=== PATIENT | female | born 1985 | race Caucasian/White ===

== ENCOUNTER 2017-05-15 09:49 | Observation (INO) ==
[2017-05-15] MEDS ORDERED: Ondansetron 4 MG/2 ML VIAL IVP ONE (10:01)
--- NOTE | 2017-05-15 10:07 | Emergency Department Note ---
Disposition Clinical Impression: DKA (diabetic ketoacidoses) Qualifiers: Diabetes mellitus type: type 1 Diabetes mellitus complication detail: without coma Qualified Code(s): E10.10 - Type 1 diabetes mellitus with ketoacidosis without coma Disposition: Admitted As Inpatient Condition: Good Referrals: Ren Artis MD [Primary Care Provider] - Forms: ED Satisfaction Letter Time of Disposition: 12:03 General Adult HPI - General Chief complaint: ED Nausea/Vomiting/Diarrhea Stated complaint: Hyperglycimia Time Seen by Provider: 05/15/17 09:56 Source: patient, EMS Mode of arrival: EMS Limitations: no limitations Nursing Notes Reviewed: Yes Vital Signs Reviewed: Yes - History of Present Illness HPI Narrative: 31-year-old female with significant past medical history of type 1 diabetes with insulin pump placed approximately one month ago presenting to the emergency department with concern for DKA. Patient states since she had the insulin pump placed 1 month ago she has been unable to keep her glucose less than 300. This morning she woke up and did not feel well. She was nauseous and could not eat breakfast. She checked her sugar and it was greater than 500. She gave herself 36 units of insulin at home but was concerned because she has had multiple episodes of DKA in the past. Patient denies any pain at this time. Denies chest pain, shortness of breath or dizziness. Denies fever or urinary symptoms. Pain Scale: 3 - Related Data Home Medications Medication Instructions Recorded Confirmed Insulin ASPART [NovoLOG] 1 - 5 unit SQ TIDWM 10/25/14 05/15/17 ARIPiprazole [Abilify] 10 mg PO DAILY 05/15/17 05/15/17 Dicyclomine [Bentyl] 10 mg PO QID 05/15/17 05/15/17 Insulin Degludec [Tresiba 18 units SQ HS 05/15/17 05/15/17 Flextouch U-100] Levothyroxine [Synthroid] 75 mcg PO 0630 05/15/17 05/15/17 Pregabalin [Lyrica] 50 mg PO BID 05/15/17 05/15/17 Previous Rx's Medication Instructions Recorded Indomethacin [Indocin] 25 mg PO TIDWM PRN #20 capsule 05/03/17 Allergies Allergy/AdvReac Type Severity Reaction Status Date / Time Penicillins Allergy Rash Verified 05/15/17 10:05 sulfamethoxazole Allergy Rash Verified 05/15/17 10:05 [From Bactrim] trimethoprim [From Bactrim] Allergy Rash Verified 05/15/17 10:05 All systems ED: reviewed and negative except as stated. Gastrointestinal: Reports: nausea Endocrine: Reports: fatigue Past Medical History - Past Medical History Attestation: Yes The following information was validated with the patient. 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 Absent: scleral icterus, conjunctival injection - ENT ENT exam: mucous membranes dry - Neck Neck exam: Present: normal inspection, full ROM. Absent: tenderness, meningismus - Chest Chest inspection: Present: normal inspection, symmetric chest wall rise. Absent : tenderness, rash - Respiratory Respiratory exam: Present: normal lung sounds bilaterally. Absent: respiratory distress, wheezes, stridor - Cardiovascular Cardiovascular exam: Present: regular rate, normal rhythm, normal heart sounds - Abdominal Exam Abdominal exam: Present: soft, tenderness. Absent: distention, guarding, rebound, rigidity Abdominal tenderness: Present: diffuse, mild - Extremities Exam Extremities exam: Present: normal inspection, full ROM - Neurological Exam Neurological exam: Present: alert, oriented X3 - Psychiatric Psychiatric exam: Present: normal affect, normal mood - Skin Skin exam: Present: warm, intact Course Course Narrative: 31-year-old female presenting to the emergency department with concern for DKA. Upon arrival glucose by fingerstick was greater than 500. Patient complaining of nausea as well. We will perform DKA workup including basic labs , UA and VBG. Patient is alert and oriented 3 in room stable vital signs. Disposition pending the most likely admission. Patient agrees with this plan. - Reevaluation(s) Reevaluation #1: Patient's VBG shows she is acidotic and has positive blood and urine ketones. Patient is alert and oriented 3 in the room with stable vital signs. Insulin drip was started. We will plan to admit the patient for DKA at this time. Patient agrees with this plan. I spoke with the hospitalist on-call Dr. Herring who agrees to accept the patient at this time. Vital Signs Temperature 98.1 F 05/15/17 10:00 Pulse Rate 79 05/15/17 10:00 Respiratory Rate 16 05/15/17 10:00 Blood Pressure 115/77 05/15/17 10:00 O2 Sat by Pulse Oximetry 99 05/15/17 10:00 Temperature 98.1 F 05/15/17 10:00 Pulse Rate 79 05/15/17 10:00 Respiratory Rate 16 05/15/17 10:00 Blood Pressure 115/77 05/15/17 10:00 O2 Sat by Pulse Oximetry 99 05/15/17 10:00 Oxygen Delivery Oxygen Delivery Room Air Medical Decision Making - Medical Records Medical records reviewed: Yes I reviewed the patient's medical records. - Lab Data Lab results reviewed: Yes I reviewed the patient's lab results. Result diagrams: 05/15/17 10:15 05/15/17 10:15 Lab Results 05/15/17 05/15/17 05/15/17 Range/Units 10:15 10:15 10:15 WBC 5.7 (4.3-11.1) K/mcL RBC 4.69 (3.82-4.97) M/mcL Hgb 14.1 (11.5-15.4) g/dL Hct 41.3 (35.3-44.9) % MCV 88.1 (83.0-100.0) fL MCH 30.1 (28.0-33.3) pg MCHC 34.1 (31.6-35.5) g/dL RDW 12.9 (11.5-14.5) % Plt Count 260 (140-400) K/mcL MPV 9.4 (9.4-12.4) fL Immature Gran % 0.5 (0-4) % Seg Neutrophils % 71.9 % Lymphocytes % 19.3 % Monocytes % 6.3 % Eosinophils % 0.9 % Basophils % 1.1 % Neutrophils # 4.1 (1.6-8.9) K/mcL Lymphocytes # 1.1 (0.6-4.6) K/mcL Monocytes # 0.4 (0.0-1.3) K/mcL Eosinophils # 0.1 (0.0-0.6) K/mcL Basophils # 0.1 (0.0-0.2) K/mcL VBG pH (7.32-7.42) pH Units VBG pCO2 (41-51) mmHg VBG pO2 (25-50) mmHg VBG HCO3 (21-27) mEq/L Sodium 130 L (136-145) mEq/L Potassium 4.5 (3.5-5.1) mEq/L Chloride 102 (98-107) mEq/L Carbon Dioxide 16 L (23-29) mEq/L BUN 17 (6-20) mg/dL Creatinine 0.74 (0.60-1.20) mg/dL Est GFR ( Amer) > 60 (> 60) Est GFR (Non-Af Amer) > 60 (> 60) BUN/Creatinine Ratio 23 (6-26) Glucose 498 H (70-105) mg/dL Calculated Osmolality 294 (280-300) Calcium 9.0 (8.6-10.3) mg/dL Beta-Hydroxybutyric Acd > 2.00 H (0.02-0.27) mmol/L Urine Color (Yellow) Urine Clarity (Clear) Urine pH (5.0-8.0) pH Units Ur Specific [place] (1.010-1.025) Urine Protein (Neg-Trace) mg/dL Urine Glucose (UA) (Normal) mg/dL Urine Ketones (Negative) mg/dL Urine Blood (Negative) Urine Nitrite (Negative) Urine Bilirubin (Negative) Urine Urobilinogen (Normal) mg/dL Ur Leukocyte Esterase (Negative) Urine Microscopic RBC (0-3) per hpf Urine Microscopic WBC (0-3) per hpf Ur Squamous Epith Cells (None-Few) per lpf Urine Bacteria (None-Few) per hpf Hyaline Casts (None-Few) per lpf Ur Culture Indicated? (NO) Urine Test (Negative) 05/15/17 05/15/17 05/15/17 Range/Units 10:25 10:25 10:32 WBC (4.3-11.1) K/mcL RBC (3.82-4.97) M/mcL Hgb (11.5-15.4) g/dL Hct (35.3-44.9) % MCV (83.0-100.0) fL MCH (28.0-33.3) pg MCHC (31.6-35.5) g/dL RDW (11.5-14.5) % Plt Count (140-400) K/mcL MPV (9.4-12.4) fL Immature Gran % (0-4) % Seg Neutrophils % % Lymphocytes % % Monocytes % % Eosinophils % % Basophils % % Neutrophils # (1.6-8.9) K/mcL Lymphocytes # (0.6-4.6) K/mcL Monocytes # (0.0-1.3) K/mcL Eosinophils # (0.0-0.6) K/mcL Basophils # (0.0-0.2) K/mcL VBG pH 7.26 L (7.32-7.42) pH Units VBG pCO2 36 L (41-51) mmHg VBG pO2 56 H (25-50) mmHg VBG HCO3 16 L (21-27) mEq/L Sodium (136-145) mEq/L Potassium (3.5-5.1) mEq/L Chloride (98-107) mEq/L Carbon Dioxide (23-29) mEq/L BUN (6-20) mg/dL Creatinine (0.60-1.20) mg/dL Est GFR ( Amer) (> 60) Est GFR (Non-Af Amer) (> 60) BUN/Creatinine Ratio (6-26) Glucose (70-105) mg/dL Calculated Osmolality (280-300) Calcium (8.6-10.3) mg/dL Beta-Hydroxybutyric Acd (0.02-0.27) mmol/L Urine Color Yellow (Yellow) Urine Clarity Clear (Clear) Urine pH 5.5 (5.0-8.0) pH Units Ur Specific [place] > 1.030 H (1.010-1.025) Urine Protein Negative (Neg-Trace) mg/dL Urine Glucose (UA) >=1000 H (Normal) mg/dL Urine Ketones 80 H (Negative) mg/dL Urine Blood Large H (Negative) Urine Nitrite Negative (Negative) Urine Bilirubin Negative (Negative) Urine Urobilinogen Normal (Normal) mg/dL Ur Leukocyte Esterase Negative (Negative) Urine Microscopic RBC 0-3 (0-3) per hpf Urine Microscopic WBC 0-3 (0-3) per hpf Ur Squamous Epith Cells Many H (None-Few) per lpf Urine Bacteria None Seen (None-Few) per hpf Hyaline Casts None Seen (None-Few) per lpf Ur Culture Indicated? NO (NO) Urine Test Negative (Negative) - EKG Data EKG #1 EKG attestation: Yes I reviewed and interpreted this EKG. EKG results narrative: Sinus rhythm with sinus arrhythmia. 79 bpm. TN interval 134, QRS 86, QTc 412. T-wave inversion noted in V1, V2. No signs of acute ST segment elevation or ischemia. Attestation Statement - Attestation Attestation: I examined this patient and my medical decision-making was reviewed with the Resident Physician, Dr. Mirza. I agree with the documented findings, disposition and treatment plan as described except to the extent set forth below. Patient is a 31-year-old white female with history of type 1 diabetes mellitus he is currently being followed by endocrinology and started on an insulin pump approximately one month ago. Patient's been having trouble managing her sugars and states that they have been running in the high 300s and she was just seen 10 days ago with alterations made to the pump. Patient has changed her slight multiple times and this morning woke up and was nauseated not feeling well and blood sugar read over 500. Patient denies any preceding illness no fevers chills no cough sore throat no other associated symptoms. I agree with patient's physical exam findings as documented. Patient's hemodynamically stable and GCS of 15 on arrival with no altered mental status. Patient was started on 2 L fluid bolus IV kept on continuous cardiac monitoring and pulse ox and labs were drawn and sent. VBG showed a normal pH, metabolic panel shows a gap acidosis with hyperglycemia consistent with DKA we will start her on insulin drip. Case was discussed with the hospitalist who accepted the patient for admission for DKA.
[2017-05-15 10:30] LABS: Basophils # 0.1 K/mcL (0.0-0.2); Basophils % 1.1 %; Eosinophils # 0.1 K/mcL (0.0-0.6); Eosinophils % 0.9 %; Hematocrit 41.3 % (35.3-44.9); Hemoglobin 14.1 g/dL (11.5-15.4); Immature Granulocytes % 0.5 % (0-4); Lymphocytes # 1.1 K/mcL (0.6-4.6); Lymphocytes % 19.3 %; Mean Corpuscular HGB Conc 34.1 g/dL (31.6-35.5); Mean Corpuscular Hemoglobin 30.1 pg (28.0-33.3); Mean Corpuscular Volume 88.1 fL (83.0-100.0); Mean Platelet Volume 9.4 fL (9.4-12.4); Monocytes # 0.4 K/mcL (0.0-1.3); Monocytes % 6.3 %; Neutrophils # 4.1 K/mcL (1.6-8.9); Platelet Count 260 K/mcL (140-400); Red Blood Count 4.69 M/mcL (3.82-4.97); Red Cell Distribution Width 12.9 % (11.5-14.5); Segmented Neutrophils % 71.9 %
[2017-05-15 10:34] LABS: VBG HCO3 16 mEq/L (21-27); VBG PCO2 36 mmHg (41-51); VBG PH 7.26 pH Units (7.32-7.42); VBG PO2 56 mmHg (25-50)
[2017-05-15] MEDS ORDERED: Ketorolac 15 MG/ML VIAL IVP ONE (10:36)
[2017-05-15] MEDS: 0.9 % Sodium Chloride 1,000 ML IVC SCH ×6 (10:37→18:05)
[2017-05-15 10:55] LABS: BUN/Creatinine Ratio 23 (6-26); Blood Urea Nitrogen 17 mg/dL (6-20); Carbon Dioxide 16 mEq/L (23-29); Chloride 102 mEq/L (98-107); Glucose 498 mg/dL (70-105); Osmolality,Calculated 294 (280-300); Potassium 4.5 mEq/L (3.5-5.1); Sodium 130 mEq/L (136-145); eGFR For African Americans > 60 (> 60); eGFR For Non-African Americans > 60 (> 60)
[2017-05-15] MEDS ORDERED: *HR* Dextrose 50 % in Water (Syg) 50 ML SYRINGE IVP PRN ×2 (11:06→17:48)
[2017-05-15] MEDS ORDERED: Insulin Human Regular 100 UNIT in 0.9 % Sodium Chloride 100 ML IVC SCH ×2 (11:15→18:00)
[2017-05-15 11:17] LABS: Bilirubin,Urine Negative (Negative); Blood,Urine Large (Negative); Clarity,Urine Clear (Clear); Color,Urine Yellow (Yellow); Glucose,Urine (UA) >=1000 mg/dL (Normal); Ketones,Urine 80 mg/dL (Negative); Leukocyte Esterase,Urine Negative (Negative); Nitrite,Urine Negative (Negative); PH,Urine 5.5 pH Units (5.0-8.0); Protein,Urine Negative (Neg-Trace); Specific Gravity,Urine > 1.030 (1.010-1.025); Urobilinogen,Urine Normal (Normal)
[2017-05-15 11:20] LABS: Bacteria,Urine None Seen per hpf (None-Few); Hyaline Casts,Urine None Seen per lpf (None-Few); RBC,Urine 0-3 per hpf (0-3); Squamous Epithelial Cell,Urine Many per lpf (None-Few); WBC,Urine 0-3 per hpf (0-3)
[2017-05-15] MEDS ORDERED: Indomethacin 25 MG CAPSULE PO PRN (12:54)
[2017-05-15] MEDS ORDERED: *HR* HYDROcodone/Acet 5/325 mg TABLET PO PRN (12:55)
[2017-05-15] MEDS ORDERED: Acetaminophen 325 MG TABLET PO PRN (12:55)
[2017-05-15] MEDS ORDERED: Naloxone 0.4 MG/ML INJ IVP PRN (12:55)
[2017-05-15] MEDS ORDERED: *HR* Promethazine 25 MG/ML VIAL IVP PRN (13:01)
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
[2017-05-15 14:51] LABS: Amphetamine Screen,Urine Negative ng/mL (Cutoff=1000); Barbiturate Screen,Urine Negative ng/mL (Cutoff=200); Benzodiazepines Screen,Urine Negative ng/mL (Cutoff=200); Cannabinoid Screen,Urine Negative ng/mL (Cutoff = 50); Cocaine Screen,Urine Negative ng/mL (Cutoff= 300); Opiate Screen,Urine Negative ng/mL (Cutoff=300); Phencyclidine Screen,Urine Negative ng/mL (Cutoff=25)
[2017-05-15] MEDS ORDERED: D5% in 0.9% NACL 1,000 ML IVC ONE (16:29)
[2017-05-15] MEDS ORDERED: D5% in 0.45% NACL 1,000 ML IVC SCH (16:30)
[2017-05-15 17:18] LABS: Alanine Aminotransferase 22 Units/L (7-52); Albumin 3.3 g/dL (3.5-5.7); Albumin/Globulin Ratio 1.4 (1.1-2.2); Alkaline Phosphatase 73 Units/L (34-104); Aspartate Amino Transferase 22 Units/L (13-39); BUN/Creatinine Ratio 25 (6-26); Bilirubin,Total 0.6 mg/dL (0.3-1.0); Blood Urea Nitrogen 13 mg/dL (6-20); Calcium 7.8 mg/dL (8.6-10.3); Carbon Dioxide 19 mEq/L (23-29); Chloride 113 mEq/L (98-107); Globulin 2.3 g/dL (2.4-3.5); Glucose 149 mg/dL (70-105); Osmolality,Calculated 289 (280-300); Potassium 3.3 mEq/L (3.5-5.1); Sodium 138 mEq/L (136-145); Total Protein 5.6 g/dL (6.4-8.9); eGFR For African Americans > 60 (> 60); eGFR For Non-African Americans > 60 (> 60)
[2017-05-15] MEDS ORDERED: D5% in 0.45% NACL w KCl 20 MEQ/1,000 ML MLS IVC ONE (17:31)
[2017-05-15] MEDS ORDERED: D5% in 0.45% NACL w KCl 20 MEQ/1,000 ML MLS IVC PRN ×2 (17:48→23:31)
[2017-05-15] MEDS ORDERED: Insulin Regular, Human 100 UNIT/ML IV PRN (17:48)
[2017-05-15] MEDS: Pregabalin 50 MG CAPSULE PO SCH (20:35)
[2017-05-15 21:24] LABS: VBG HCO3 20 mEq/L (21-27); VBG PCO2 36 mmHg (41-51); VBG PH 7.34 pH Units (7.32-7.42); VBG PO2 148 mmHg (25-50)
[2017-05-15 22:08] LABS: BUN/Creatinine Ratio 23 (6-26); Blood Urea Nitrogen 11 mg/dL (6-20); Calcium 7.7 mg/dL (8.6-10.3); Carbon Dioxide 19 mEq/L (23-29); Chloride 114 mEq/L (98-107); Glucose 203 mg/dL (70-105); Osmolality,Calculated 291 (280-300); Potassium 3.2 mEq/L (3.5-5.1); Sodium 138 mEq/L (136-145); eGFR For African Americans > 60 (> 60); eGFR For Non-African Americans > 60 (> 60)
[2017-05-15] MEDS ORDERED: Potassium Chloride 20 MEQ, Lidocaine 1% 2 ML in D5% in Water 250 ML IVPB ONE (22:34)
[2017-05-15] MEDS ORDERED: D5% in Water 1,000 ML IVC PRN (22:51)
[2017-05-15] MEDS ORDERED: Insulin DETEMIR 100 UNIT/ML X5UNITS SQ SCH (23:00)
[2017-05-16] MEDS: Insulin LISPRO 300 UNITS/3 ML VIAL SQ SCH ×7 (00:06→21:12)
[2017-05-16] MEDS ORDERED: 0.9 % Sodium Chloride 500 ML IVC ONE (01:41)
[2017-05-16] MEDS ORDERED: Ondansetron ODT 4 MG TAB.RAPDIS SL PRN (03:20)
[2017-05-16 04:43] LABS: Basophils % 0.7 %; Eosinophils # 0.2 K/mcL (0.0-0.6); Eosinophils % 3.3 %; Hematocrit 36.4 % (35.3-44.9); Immature Granulocytes % 0.4 % (0-4); Lymphocytes # 2.2 K/mcL (0.6-4.6); Lymphocytes % 39.5 %; Mean Corpuscular HGB Conc 34.1 g/dL (31.6-35.5); Mean Corpuscular Hemoglobin 29.9 pg (28.0-33.3); Mean Corpuscular Volume 87.7 fL (83.0-100.0); Mean Platelet Volume 9.4 fL (9.4-12.4); Monocytes # 0.4 K/mcL (0.0-1.3); Monocytes % 7.4 %; Neutrophils # 2.7 K/mcL (1.6-8.9); Nucleated Red Blood Cells 0.4 /100 WBC (0); Platelet Count 255 K/mcL (140-400); Red Blood Count 4.15 M/mcL (3.82-4.97); Red Cell Distribution Width 13.1 % (11.5-14.5); Segmented Neutrophils % 48.7 %
[2017-05-16 05:01] LABS: Alanine Aminotransferase 21 Units/L (7-52); Albumin 2.7 g/dL (3.5-5.7); Albumin/Globulin Ratio 1.5 (1.1-2.2); Alkaline Phosphatase 61 Units/L (34-104); Aspartate Amino Transferase 27 Units/L (13-39); BUN/Creatinine Ratio 20 (6-26); Bilirubin,Total 0.3 mg/dL (0.3-1.0); Blood Urea Nitrogen 9 mg/dL (6-20); Calcium 7.6 mg/dL (8.6-10.3); Carbon Dioxide 18 mEq/L (23-29); Chloride 115 mEq/L (98-107); Chol/HDL Ratio 3.3 (0-4.9); Cholesterol 126 mg/dL (< 200); Globulin 1.8 g/dL (2.4-3.5); Glucose 208 mg/dL (70-105); HDL Cholesterol 38 mg/dL (40-59); LDL Cholesterol,Calculated 70 mg/dL (0-99); Osmolality,Calculated 291 (280-300); Potassium 3.9 mEq/L (3.5-5.1); Sodium 138 mEq/L (136-145); Total Protein 4.5 g/dL (6.4-8.9); Triglycerides 92 mg/dL (< 150); eGFR For African Americans > 60 (> 60); eGFR For Non-African Americans > 60 (> 60)
[2017-05-16 05:05] LABS: Hemoglobin 12.4 g/dL (11.5-15.4)
[2017-05-16 05:14] LABS: Thyroid Stimulating Hormone 5.726 mcIU/mL (0.340-5.600)
[2017-05-16] MEDS: *HR* Enoxaparin 40 MG/0.4 ML SYRINGE SQ SCH (06:13)
[2017-05-16] MEDS: ARIPiprazole 10 MG TABLET PO SCH (08:47)
[2017-05-16] MEDS: Pregabalin 50 MG CAPSULE PO SCH ×2 (08:48→21:11)
--- NOTE | 2017-05-16 08:49 | Internal Med Progress Note ---
Date of Encounter: 05/16/17 Time of Encounter: 08:46 - Assessment and plan (1) DKA (diabetic ketoacidoses) Current Visit: Yes Status: Acute Assessment and plan: DKA likely secondary to pump malfunction Resolving Beta OH butiric acid was >2 with metabolic acidosis Start Levemir 10 units twice a day , (the patient used to take Tresiba 18 units daily) and humalog 6 units tid with sliding scale Ok to go to the regular floor Qualifiers: Diabetes mellitus type: type 1 Diabetes mellitus complication detail: without coma Qualified Code(s): E10.10 - Type 1 diabetes mellitus with ketoacidosis without coma (2) Hypokalemia Current Visit: Yes Status: Acute Assessment and plan: Repleted (3) Hyponatremia Current Visit: Yes Status: Acute Assessment and plan: Possible pseudohyponatremia due to hyperglycemia (4) Metabolic acidosis Current Visit: Yes Status: Acute Assessment and plan: Resolving (5) Depression Current Visit: Yes Status: Chronic Assessment and plan: Stable Qualifiers: Depression Type: other depression Qualified Code(s): F32.89 - Other specified depressive episodes (6) Hypothyroidism Current Visit: Yes Status: Acute Assessment and plan: Continue Synthroid Qualifiers: Hypothyroidism type: unspecified Qualified Code(s): E03.9 - Hypothyroidism , unspecified - Subjective Interval history: Complaining about nausea, denies abdominal pain, no dysuria, no fevers. Mentions that her pump probably was not functioning properly - Constitutional Vitals: Temp Pulse Resp BP Pulse Ox 98.2 F 72 15 97/61 97 05/16/17 07:16 05/16/17 07:16 05/16/17 07:16 05/16/17 07:16 05/16/17 07:16 General appearance: Present: cooperative, A&O X 3, pleasant, no acute distress, answers questions appropriately - Head Head exam: Present: atraumatic, normocephalic - Eye Eye exam: Present: PERRL, conjuntiva pink, sclera anicteric Pupils: Present: PERRL - Neck Neck exam general surgery: Present: supple, trachea midline. Absent: lymphadenopathy - Respiratory Respiratory exam: Present: CTAB. Absent: accessory muscle use, rales, rhonchi, wheezes - Cardiovascular Cardiovascular exam: Present: RRR, +S1, +S2. Absent: diastolic murmur, gallop, rubs, systolic murmur - GI/Abdominal GI/Abdominal exam: Present: normal bowel sounds, soft, no peritoneal signs. Absent: distended, tenderness - Extremities Exam Extremities exam: Present: warm, radial pulses palpable and symmetrical. Absent : calf tenderness, cyanotic, pedal edema - Neurological Exam Neurological exam: Present: CN II-XII intact, oriented X3, no focal deficits. Absent: pronater drift, facial droop, speech deficit - Skin Skin exam: Present: dry, intact Internal Medicine: Result - Labs CBC & Chem 7: 05/16/17 04:05 05/16/17 04:05 Labs: Short CBC 05/16/17 Range/Units 04:05 WBC 5.5 (4.3-11.1) K/mcL Hgb 12.4 D (11.5-15.4) g/dL Hct 36.4 (35.3-44.9) % Plt Count 255 (140-400) K/mcL Neutrophils # 2.7 (1.6-8.9) K/mcL BMP 05/15/17 05/15/17 05/16/17 16:22 21:11 04:05 Sodium 138 138 138 Potassium 3.3 L D 3.2 L 3.9 Chloride 113 H 114 H 115 H Carbon Dioxide 19 L 19 L 18 L BUN 13 11 9 Creatinine 0.53 L 0.47 L 0.45 L Glucose 149 H 203 H 208 H Calcium 7.8 L 7.7 L 7.6 L Liver Function 05/15/17 05/16/17 Range/Units 16:22 04:05 Total Bilirubin 0.6 0.3 (0.3-1.0) mg/dL AST 22 27 (13-39) Units/L ALT 22 21 (7-52) Units/L Alkaline Phosphatase 73 61 (34-104) Units/L Albumin 3.3 L 2.7 L (3.5-5.7) g/dL Consult Discharge Plan - Plan Referrals: Ren Artis MD [Primary Care Provider] - 05/22/17 9:45 am Michelle Zimmer CNP [Advanced Practice Nurse] - 05/22/17 12:00 pm
[2017-05-16] MEDS: Insulin DETEMIR 100 UNIT/ML X5UNITS SQ SCH ×2 (10:20→21:11)
[2017-05-16 12:13] LABS: Estimated Average Glucose 223 mg/dl; Hemoglobin A1C 9.4 %
[2017-05-17 06:48] LABS: Basophils # 0.1 K/mcL (0.0-0.2); Basophils % 1.1 %; Eosinophils # 0.1 K/mcL (0.0-0.6); Eosinophils % 2.4 %; Hematocrit 39.3 % (35.3-44.9); Hemoglobin 13.4 g/dL (11.5-15.4); Immature Granulocytes % 0.4 % (0-4); Lymphocytes # 1.8 K/mcL (0.6-4.6); Lymphocytes % 38.7 %; Mean Corpuscular HGB Conc 34.1 g/dL (31.6-35.5); Mean Corpuscular Hemoglobin 29.8 pg (28.0-33.3); Mean Corpuscular Volume 87.5 fL (83.0-100.0); Mean Platelet Volume 9.6 fL (9.4-12.4); Monocytes # 0.5 K/mcL (0.0-1.3); Monocytes % 9.7 %; Neutrophils # 2.2 K/mcL (1.6-8.9); Platelet Count 230 K/mcL (140-400); Red Blood Count 4.49 M/mcL (3.82-4.97); Red Cell Distribution Width 13.1 % (11.5-14.5); Segmented Neutrophils % 47.7 %
[2017-05-17 06:53] LABS: Alanine Aminotransferase 29 Units/L (7-52); Albumin/Globulin Ratio 1.5 (1.1-2.2); Alkaline Phosphatase 61 Units/L (34-104); Aspartate Amino Transferase 37 Units/L (13-39); BUN/Creatinine Ratio 19 (6-26); Bilirubin,Total 0.3 mg/dL (0.3-1.0); Blood Urea Nitrogen 10 mg/dL (6-20); Calcium 8.2 mg/dL (8.6-10.3); Carbon Dioxide 24 mEq/L (23-29); Chloride 109 mEq/L (98-107); Glucose 207 mg/dL (70-105); Osmolality,Calculated 289 (280-300); Sodium 137 mEq/L (136-145); eGFR For African Americans > 60 (> 60); eGFR For Non-African Americans > 60 (> 60)
[2017-05-17 07:17] VITALS: BP 107/75
[2017-05-17] MEDS: *HR* Enoxaparin 40 MG/0.4 ML SYRINGE SQ SCH (07:56)
[2017-05-17] MEDS ORDERED: SUMAtriptan succinate 25 MG TABLET PO PRN (08:25)
[2017-05-17] MEDS ORDERED: Acetaminophen/Butalbital/CaffeineTABLET PO PRN (08:25)
--- NOTE | 2017-05-17 08:28 | Discharge Summary ---
- NOTES TO OUTPATIENT PROVIDER Notes to Outpatient Provider: Insulin pump needs reconfiguration. Date of Encounter: 05/17/17 Time of Encounter: 08:15 - Discharge Diagnosis (1) DKA (diabetic ketoacidoses) Priority: Primary Status: Resolved Qualifiers: Diabetes mellitus type: type 1 Diabetes mellitus complication detail: without coma Qualified Code(s): E10.10 - Type 1 diabetes mellitus with ketoacidosis without coma (2) Hypokalemia Priority: Secondary Status: Resolved (3) Hyponatremia Priority: Secondary Status: Resolved (4) Hypothyroidism Priority: Secondary Status: Chronic Qualifiers: Hypothyroidism type: unspecified Qualified Code(s): E03.9 - Hypothyroidism , unspecified (5) Metabolic acidosis Priority: Secondary Status: Resolved (6) Migraine Priority: Secondary Status: Acute Qualifiers: Migraine type: without aura Status migrainosus presence: without status migrainosus Intractability: intractable Qualified Code(s): G43.019 - Migraine without aura, intractable, without status migrainosus Hospital course: Ms. Goyal is a 31 year old female patient with history of type 1 diabetes mellitus who had an insulin pump placed one month ago has had difficulty controlling her blood sugars with it. She has been compliant with her pump usage. She was found to be in diabetic ketoacidosis and was therefore hospitalized. She was started on treatment with intravenous insulin and IV fluids per DKA protocol. Her blood sugars have improved and is on subcutaneous insulin. She is tolerating diet well. She is clinically stable to be discharged home today and will be discharged on NovoLog and Tresiba. She can follow up with her primary care doctor to have her pump reevaluated and adjusted. She also has a history of migraine and all of migraine headaches here. She is being discharged on Imitrex to be used as needed. Discharge discussed with: patient - Time Spent with Patient Total time spent providing and/or coordinating discharge services: Less than 30 minutes (25 min) - Discharge Medications Prescriptions: SUMAtriptan succinate [Imitrex] 25 mg PO Q2H PRN #20 tablet PRN Reason: Migraine Headache Syrge-Ndl,Ins 0.3 ml Half Raj [Insulin Syringe] 1 each [facility] disp.syrin Home Medications: Insulin ASPART [NovoLOG] 1 - 5 unit SQ TIDWM 10/25/14 [History] Indomethacin [Indocin] 25 mg PO TIDWM PRN #20 capsule 05/03/17 [Rx] ARIPiprazole [Abilify] 10 mg PO DAILY 05/15/17 [History] Dicyclomine [Bentyl] 10 mg PO QID 05/15/17 [History] Insulin Degludec [Tresiba Flextouch U-100] 18 units SQ HS 05/15/17 [History] Levothyroxine [Synthroid] 75 mcg PO 0630 05/15/17 [History] Pregabalin [Lyrica] 50 mg PO BID 05/15/17 [History] SUMAtriptan succinate [Imitrex] 25 mg PO Q2H PRN #20 tablet 05/17/17 [Rx] Syrge-Ndl,Ins 0.3 ml Half Raj [Insulin Syringe] 1 each [facility] #120 disp.syrin 05/17/17 [Rx] Allergies/Adverse Reactions: 3 Allergy/AdvReac Type Severity Reaction Status Date / Time Penicillins Allergy Rash Verified 05/15/17 10:05 sulfamethoxazole Allergy Rash Verified 05/15/17 10:05 [From Bactrim] trimethoprim [From Bactrim] Allergy Rash Verified 05/15/17 10:05 Date of admission: 05/15/17 13:16 Primary care physician: Ren Artis MD Consults: 05/15/17 13:42 Consult to Diabetes Education [CONS] Routine Comment: Reason for Consult: Uncontrolled diabetes on insulin pump 05/15/17 13:46 Consult to Invasive Line Access Team [CONS] Routine Reason for Consult: difficult access Line Type: EPIV Discharging clinician: Radha Magaña Anticipated date of discharge: 05/17/17 - Constitutional Vitals: Temp Pulse Resp BP Pulse Ox 98 F 71 16 107/75 97 05/17/17 07:06 05/17/17 07:06 05/17/17 07:06 05/17/17 07:06 05/17/17 07:06 General appearance: Present: cooperative, A&O X 3, pleasant, no acute distress, answers questions appropriately - Respiratory Respiratory exam: Present: CTAB. Absent: accessory muscle use, rales, rhonchi, wheezes - Cardiovascular Cardiovascular exam: Present: RRR, +S1, +S2. Absent: diastolic murmur, gallop, rubs, systolic murmur - GI/Abdominal GI/Abdominal exam: Present: normal bowel sounds, soft, no peritoneal signs. Absent: distended, tenderness - Extremities Exam Extremities exam: Present: warm, radial pulses palpable and symmetrical. Absent : calf tenderness, cyanotic, pedal edema - Patient Status Disposition: Home, Self-Care Condition: Good Functional capacity at discharge: independent ambulation Overall status at discharge: patient is progressing back to baseline - Discharge Instructions Instructions: Diabetes Mellitus Type 2 in Adults (DC) Follow Up With: Ren Artis MD [Primary Care Provider] - 05/22/17 9:45 am Michelle Zimmer CNP [Advanced Practice Nurse] - 05/22/17 12:00 pm - Diet and Activity Activity: increase activity as tolerated Diet: diabetic diet, low fat, low cholesterol, low salt diet
[2017-05-17] MEDS: Insulin DETEMIR 100 UNIT/ML X5UNITS SQ SCH (08:31)
[2017-05-17] MEDS: Insulin LISPRO 300 UNITS/3 ML VIAL SQ SCH ×2 (08:31)
[2017-05-17] MEDS: ARIPiprazole 10 MG TABLET PO SCH (08:32)
[2017-05-17] MEDS: Pregabalin 50 MG CAPSULE PO SCH (08:32)
--- NOTE | 2017-05-20 20:54 | Electrocardiograph Report ---
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
== END 2017-05-17 11:35 | disposition home or self-care (01) ==
LOC: EMEROO 09:49 → 2NNU 09:49 → SUATTDRO 13:16 → 2NNU 15:24 → 3ANU 05-16 11:12
PROVIDERS: ADMIT Student in an Organized Health Care Education/Training Program; ATTEND Internal Medicine

== ENCOUNTER 2017-12-10 19:02 | Inpatient (IN) ==
--- NOTE | 2017-12-10 19:31 | Emergency Department Note ---
Disposition Clinical Impression: DKA (diabetic ketoacidoses) Qualifiers: Diabetes mellitus type: type 1 Diabetes mellitus complication detail: without coma Qualified Code(s): E10.10 - Type 1 diabetes mellitus with ketoacidosis without coma Nausea and vomiting Qualifiers: Vomiting type: unspecified Vomiting Intractability: non-intractable Qualified Code(s): R11.2 - Nausea with vomiting, unspecified Disposition: Admitted As Inpatient Condition: Good Referrals: Ren Artis MD [Primary Care Provider] - Forms: ED Satisfaction Letter Nausea/Vomiting/Diarrhea HPI - General Chief complaint: ED Nausea/Vomiting/Diarrhea Stated complaint: DKA Time Seen by Provider: 12/10/17 19:13 Source: patient Mode of arrival: private vehicle Limitations: no limitations Nursing Notes Reviewed: Yes Vital Signs Reviewed: Yes - History of Present Illness HPI Narrative: 32-year-old female history of insulin-dependent type 1 diabetes who uses a pump at home who presents to the ER due to abnormal labs. Patient states she had labs drawn today. She is having surgery on Friday with orthopedics. She broke her arm recently. States that she was called because they said she was in DKA. She does admit to feeling unwell for the last several days with nausea and vomiting but that it might be secondary to Percocet. She was also diagnosed with bronchitis a little over a week ago and was on a course of steroids that she finished one week ago. She also states today that she took off her insulin pump because she was tired of doing it and wants to go back to doing shots. No other complaints. Pt Subjective Complaint: nausea, vomiting Onset (ago): day(s) Improves with: nothing Worsens with: nonthing Context: other (History of DKA) Associated symptoms: Reports: nausea/vomiting - Related Data Home Medications Medication Instructions Recorded Confirmed ARIPiprazole [Abilify] 10 mg PO DAILY 05/15/17 12/10/17 Levothyroxine [Synthroid] 75 mcg PO DAILY 06/21/17 12/10/17 Ergocalciferol (VITAMIN D2) 50,000 unit PO QWEEK 06/22/17 12/10/17 [Drisdol (50,000 Unit)] Folic Acid/Vit Bcomp,C [Renal-Sab[place] 1 tab PO DAILY 12/10/17 12/10/17 Tablet] Pregabalin [Lyrica] 50 mg PO BID 12/10/17 12/10/17 SUMAtriptan Succinate [Imitrex] 100 mg PO DAILY PRN 12/10/17 12/10/17 Subcutaneous Insulin Pump [T:Slim] 1 each [facility] AD 12/10/17 12/10/17 Previous Rx's Medication Instructions Recorded HYDROcodone/Acet 5/325 mg [[place] 1 tab PO Q6H PRN 3 Days #12 tab 12/06/17 5-325 mg] Oxycodone HCl/Acetaminophen 1 each PO Q4HR PRN 2 Days #8 tablet 12/07/17 [Percocet 5-325 mg Tablet] Allergies Allergy/AdvReac Type Severity Reaction Status Date / Time naproxen [From Naprosyn] Allergy Difficulty Verified 12/06/17 17:04 Breathing Penicillins Allergy Rash Verified 07/09/17 21:19 sulfamethoxazole Allergy Itching Verified 08/25/17 10:28 [From Bactrim] tramadol [From Ultram] Allergy Hives Verified 12/06/17 17:04 trimethoprim [From Bactrim] Allergy Itching Verified 08/25/17 10:28 All systems ED: reviewed and negative except as stated. Constitutional: Denies: fever Respiratory: Denies: cough Gastrointestinal: Reports: nausea, vomiting. Denies: diarrhea Genitourinary: Denies: dysuria, hematuria Past Medical History - Past Medical History Attestation: Yes The following information was validated with the patient. Source: patient Medical history: Reports: diabetes, thyroid disease, other Surgical history: Reports: no surgical history Psychiatric history: Reports: bipolar, depression CYTOPATHOLOGIST history: Reports: no CYTOPATHOLOGIST history - Social History Smoking Status: Current every day smoker Smokeless Tobacco Status: No Alcohol use: Reports: none Drug use: Reports: none Physical Exam - General Limitations: no limitations General appearance: alert, in no apparent distress - Head Head exam: atraumatic, normocephalic - Eye Eye exam: Present: normal appearance - ENT ENT exam: normal exam, mucous membranes dry - Neck Neck exam: Present: normal inspection - Chest Chest inspection: Present: normal inspection, symmetric chest wall rise - Respiratory Respiratory exam: Present: normal lung sounds bilaterally - Cardiovascular Cardiovascular exam: Present: normal rhythm, tachycardia, normal heart sounds - Abdominal Exam Abdominal exam: Present: soft, Non-Tender. Absent: tenderness, distention, guarding, rigidity - Extremities Exam Extremities exam: Present: normal inspection, full ROM - Expanded Upper Extremity Exam Shoulder exam: Present: normal inspection, full ROM Arm exam: Present: normal inspection, full ROM Elbow exam: Present: normal inspection, full ROM Forearm/Wrist exam: Present: normal inspection, full ROM Hand exam: Present: normal inspection, full ROM - Expanded Lower Extremity Exam Hip/Pelvis exam: Present: normal inspection, full ROM Upper leg exam: Present: normal inspection, full ROM Knee exam: Present: normal inspection, full ROM Lower leg exam: Present: normal inspection, full ROM Ankle exam: Present: normal inspection, full ROM Foot/toe exam: Present: normal inspection, full ROM - Neurological Exam Neurological exam: Present: alert, other (GCS 15. No focal deficits.) - Skin Skin exam: Present: warm, dry Course Course Narrative: Patient seen and examined. Vital signs reviewed. She is ill but nontoxic in appearance. Reviewed labs from earlier today. Plan to repeat. We will give her 2 L bolus and likely start an insulin drip for DKA. - Reevaluation(s) Reevaluation #1: Labs consistent with DKA. Patient given 2 L of normal saline. Additional maintenance fluid ordered with potassium supplementation. Insulin drip initiated. Admitted to the hospitalist service. Vital Signs Temperature 98.0 F 12/10/17 19:10 Pulse Rate 138 12/10/17 19:10 Respiratory Rate 22 12/10/17 19:10 Blood Pressure 124/82 12/10/17 19:10 O2 Sat by Pulse Oximetry 98 12/10/17 19:10 Temperature 98.0 F 12/10/17 19:45 Pulse Rate 97 12/10/17 20:32 Respiratory Rate 20 12/10/17 20:32 Blood Pressure 120/87 12/10/17 20:32 O2 Sat by Pulse Oximetry 100 12/10/17 20:32 Oxygen Delivery Oxygen Delivery Room Air Nausea/Vomiting/Diarrhea - MDM Narrative Medical decision making narrative: 32-year-old female with type 1 diabetes presenting with what appears to be DKA. Ill but nontoxic here. Hemodynamically stable. 2 L of IV fluids given, maintenance with potassium supplementation ordered. Insulin drip initiated. The patient is admitted to the hospitalist service for further management of DKA. - Lab Data Lab results reviewed: Yes I reviewed the patient's lab results. Result diagrams: 12/10/17 19:55 12/10/17 19:55 Lab Results 12/10/17 12/10/17 12/10/17 Range/Units 19:50 19:50 19:55 WBC 18.5 H (4.3-11.1) K/mcL RBC 5.29 H (3.82-4.97) M/mcL Hgb 16.2 H (11.5-15.4) g/dL Hct 49.8 H (35.3-44.9) % MCV 94.1 (83.0-100.0) fL MCH 30.6 (28.0-33.3) pg MCHC 32.5 (31.6-35.5) g/dL RDW 13.7 (11.5-14.5) % Plt Count 342 (140-400) K/mcL MPV 10.2 (9.4-12.4) fL Immature Gran % 0.8 (0-4) % Seg Neutrophils % 89.6 % Lymphocytes % 5.6 % Monocytes % 3.4 % Eosinophils % 0.1 % Basophils % 0.5 % Neutrophils # 16.5 H (1.6-8.9) K/mcL Lymphocytes # 1.0 (0.6-4.6) K/mcL Monocytes # 0.6 (0.0-1.3) K/mcL Eosinophils # 0.0 (0.0-0.6) K/mcL Basophils # 0.1 (0.0-0.2) K/mcL VBG pH (7.32-7.42) pH Units VBG pCO2 (41-51) mmHg VBG pO2 (25-50) mmHg VBG HCO3 (21-27) mEq/L Sodium (136-145) mEq/L Potassium (3.5-5.1) mEq/L Chloride (98-107) mEq/L Carbon Dioxide (23-29) mEq/L BUN (6-20) mg/dL Creatinine (0.60-1.20) mg/dL Est GFR ( Amer) (> 60) Est GFR (Non-Af Amer) (> 60) BUN/Creatinine Ratio (6-26) Glucose (70-105) mg/dL Calculated Osmolality (280-300) Calcium (8.6-10.3) mg/dL Lipase (11-82) Units/L Beta-Hydroxybutyric Acd (0.02-0.27) mmol/L Serum , Qual (Negative) Urine Color Yellow (Yellow) Urine Clarity Cloudy A (Clear) Urine pH 5.5 (5.0-8.0) pH Units Ur Specific [place] > 1.030 H (1.010-1.025) Urine Protein Trace (Neg-Trace) mg/dL Urine Glucose (UA) >=1000 H (Normal) mg/dL Urine Ketones 80 H (Negative) mg/dL Urine Blood Negative (Negative) Urine Nitrite Negative (Negative) Urine Bilirubin Negative (Negative) Urine Urobilinogen Normal (Normal) mg/dL Ur Leukocyte Esterase Negative (Negative) Urine Microscopic RBC 5-15 H (0-3) per hpf Urine Microscopic WBC 5-15 H (0-3) per hpf Ur Squamous Epith Cells Many H (None-Few) per lpf Urine Bacteria Few (None-Few) per hpf Hyaline Casts None Seen (None-Few) per lpf Ur Culture Indicated? NO (NO) Urine Test Negative (Negative) Person Notif of Crit 12/10/17 12/10/17 12/10/17 Range/Units 19:55 19:55 19:55 WBC (4.3-11.1) K/mcL RBC (3.82-4.97) M/mcL Hgb (11.5-15.4) g/dL Hct (35.3-44.9) % MCV (83.0-100.0) fL MCH (28.0-33.3) pg MCHC (31.6-35.5) g/dL RDW (11.5-14.5) % Plt Count (140-400) K/mcL MPV (9.4-12.4) fL Immature Gran % (0-4) % Seg Neutrophils % % Lymphocytes % % Monocytes % % Eosinophils % % Basophils % % Neutrophils # (1.6-8.9) K/mcL Lymphocytes # (0.6-4.6) K/mcL Monocytes # (0.0-1.3) K/mcL Eosinophils # (0.0-0.6) K/mcL Basophils # (0.0-0.2) K/mcL VBG pH (7.32-7.42) pH Units VBG pCO2 (41-51) mmHg VBG pO2 (25-50) mmHg VBG HCO3 (21-27) mEq/L Sodium 137 (136-145) mEq/L Potassium 5.0 (3.5-5.1) mEq/L Chloride 100 (98-107) mEq/L Carbon Dioxide 8 L* (23-29) mEq/L BUN 20 (6-20) mg/dL Creatinine 1.16 (0.60-1.20) mg/dL Est GFR ( Amer) > 60 (> 60) Est GFR (Non-Af Amer) 54 L (> 60) BUN/Creatinine Ratio 17 (6-26) Glucose 602 H* (70-105) mg/dL Calculated Osmolality 315 H (280-300) Calcium 9.7 (8.6-10.3) mg/dL Lipase 20 (11-82) Units/L Beta-Hydroxybutyric Acd > 2.00 H (0.02-0.27) mmol/L Serum , Qual Negative (Negative) Urine Color (Yellow) Urine Clarity (Clear) Urine pH (5.0-8.0) pH Units Ur Specific [place] (1.010-1.025) Urine Protein (Neg-Trace) mg/dL Urine Glucose (UA) (Normal) mg/dL Urine Ketones (Negative) mg/dL Urine Blood (Negative) Urine Nitrite (Negative) Urine Bilirubin (Negative) Urine Urobilinogen (Normal) mg/dL Ur Leukocyte Esterase (Negative) Urine Microscopic RBC (0-3) per hpf Urine Microscopic WBC (0-3) per hpf Ur Squamous Epith Cells (None-Few) per lpf Urine Bacteria (None-Few) per hpf Hyaline Casts (None-Few) per lpf Ur Culture Indicated? (NO) Urine Test (Negative) Person Notif of Crit 12/10/17 Range/Units 20:02 WBC (4.3-11.1) K/mcL RBC (3.82-4.97) M/mcL Hgb (11.5-15.4) g/dL Hct (35.3-44.9) % MCV (83.0-100.0) fL MCH (28.0-33.3) pg MCHC (31.6-35.5) g/dL RDW (11.5-14.5) % Plt Count (140-400) K/mcL MPV (9.4-12.4) fL Immature Gran % (0-4) % Seg Neutrophils % % Lymphocytes % % Monocytes % % Eosinophils % % Basophils % % Neutrophils # (1.6-8.9) K/mcL Lymphocytes # (0.6-4.6) K/mcL Monocytes # (0.0-1.3) K/mcL Eosinophils # (0.0-0.6) K/mcL Basophils # (0.0-0.2) K/mcL VBG pH 7.05 L* (7.32-7.42) pH Units VBG pCO2 28 L (41-51) mmHg VBG pO2 64 H (25-50) mmHg VBG HCO3 8 L (21-27) mEq/L Sodium (136-145) mEq/L Potassium (3.5-5.1) mEq/L Chloride (98-107) mEq/L Carbon Dioxide (23-29) mEq/L BUN (6-20) mg/dL Creatinine (0.60-1.20) mg/dL Est GFR ( Amer) (> 60) Est GFR (Non-Af Amer) (> 60) BUN/Creatinine Ratio (6-26) Glucose (70-105) mg/dL Calculated Osmolality (280-300) Calcium (8.6-10.3) mg/dL Lipase (11-82) Units/L Beta-Hydroxybutyric Acd (0.02-0.27) mmol/L Serum , Qual (Negative) Urine Color (Yellow) Urine Clarity (Clear) Urine pH (5.0-8.0) pH Units Ur Specific [place] (1.010-1.025) Urine Protein (Neg-Trace) mg/dL Urine Glucose (UA) (Normal) mg/dL Urine Ketones (Negative) mg/dL Urine Blood (Negative) Urine Nitrite (Negative) Urine Bilirubin (Negative) Urine Urobilinogen (Normal) mg/dL Ur Leukocyte Esterase (Negative) Urine Microscopic RBC (0-3) per hpf Urine Microscopic WBC (0-3) per hpf Ur Squamous Epith Cells (None-Few) per lpf Urine Bacteria (None-Few) per hpf Hyaline Casts (None-Few) per lpf Ur Culture Indicated? (NO) Urine Test (Negative) Person Notif of Zainab Arzate - Radiology Data Radiology results reviewed: Yes I reviewed the patient's radiology results. Chest X-Ray 12/10/17 19:17 IMPRESSION: No acute cardiopulmonary disease. D/ / Dionisio Tucker MD / Dionisio Tucker MD Interpreting Provider: Dionisio Tucker MD - EKG Data EKG attestation: Yes I reviewed and interpreted this EKG. EKG results narrative: EKG demonstrates sinus tachycardia with a rate of 125. Normal axis. Normal intervals. Normal R-wave progression. No gross ST elevations or depressions. No acute ischemic findings. S.Cony.Sara - Martin.Angelic Situation: Demographics, MOA Background: Presenting Complaint, Relevant PMH, Meds, & Allergies Assessment: Vital Signs, Course and respsone to treatment, Exam Concerns, Patient/Family Expectation, Pertinant Lab Results Recommendation: Barrier(s) to disposition, Recommendation based on pending studies, treatments, or consults S.B.ALili Report Given to: Dr. Lucila Silva Repor Time: 21:29
[2017-12-10] MEDS: 0.9 % Sodium Chloride 1,000 ML IVC SCH ×2 (19:44→20:29)
[2017-12-10 20:02] LABS: Basophils # 0.1 K/mcL (0.0-0.2); Basophils % 0.5 %; Eosinophils % 0.1 %; Hematocrit 49.8 % (35.3-44.9); Hemoglobin 16.2 g/dL (11.5-15.4); Immature Granulocytes % 0.8 % (0-4); Lymphocytes % 5.6 %; Mean Corpuscular HGB Conc 32.5 g/dL (31.6-35.5); Mean Corpuscular Hemoglobin 30.6 pg (28.0-33.3); Mean Corpuscular Volume 94.1 fL (83.0-100.0); Mean Platelet Volume 10.2 fL (9.4-12.4); Monocytes # 0.6 K/mcL (0.0-1.3); Monocytes % 3.4 %; Neutrophils # 16.5 K/mcL (1.6-8.9); Platelet Count 342 K/mcL (140-400); Red Blood Count 5.29 M/mcL (3.82-4.97); Red Cell Distribution Width 13.7 % (11.5-14.5); Segmented Neutrophils % 89.6 %
[2017-12-10 20:04] LABS: Bilirubin,Urine Negative (Negative); Blood,Urine Negative (Negative); Clarity,Urine Cloudy (Clear); Color,Urine Yellow (Yellow); Glucose,Urine (UA) >=1000 mg/dL (Normal); Ketones,Urine 80 mg/dL (Negative); Leukocyte Esterase,Urine Negative (Negative); Nitrite,Urine Negative (Negative); PH,Urine 5.5 pH Units (5.0-8.0); Protein,Urine Trace mg/dL (Neg-Trace); Specific Gravity,Urine > 1.030 (1.010-1.025); Urobilinogen,Urine Normal (Normal)
[2017-12-10 20:06] LABS: Bacteria,Urine Few per hpf (None-Few); Hyaline Casts,Urine None Seen per lpf (None-Few); Squamous Epithelial Cell,Urine Many per lpf (None-Few)
[2017-12-10 20:09] LABS: VBG HCO3 8 mEq/L (21-27); VBG PCO2 28 mmHg (41-51); VBG PH 7.05 pH Units (7.32-7.42); VBG PO2 64 mmHg (25-50)
[2017-12-10] MEDS ORDERED: Ondansetron 4 MG/2 ML VIAL IVP ONE (20:16)
[2017-12-10] MEDS ORDERED: *HR* OxyCODONE/APAP 5/325 TABLET PO ONE (20:16)
[2017-12-10] MEDS ORDERED: *HR* Dextrose 50 % in Water (Syg) 50 ML SYRINGE IVP PRN ×2 (20:24→22:00)
[2017-12-10 20:25] LABS: BUN/Creatinine Ratio 17 (6-26); Blood Urea Nitrogen 20 mg/dL (6-20); Calcium 9.7 mg/dL (8.6-10.3); Carbon Dioxide 8 mEq/L (23-29); Chloride 100 mEq/L (98-107); Glucose 602 mg/dL (70-105); Lipase 20 Units/L (11-82); Osmolality,Calculated 315 (280-300); Sodium 137 mEq/L (136-145); eGFR For Non-African Americans 54 (> 60)
[2017-12-10] MEDS ORDERED: 0.9 % Sodium Chloride w KCl 20 MEQ/1,000 ML MLS IVC SCH (20:30)
[2017-12-10] MEDS ORDERED: Insulin Human Regular 100 UNIT in 0.9 % Sodium Chloride 100 ML IVC SCH ×2 (20:30→22:00)
--- NOTE | 2017-12-10 20:50 | Emergency Department Note ---
Disposition Clinical Impression: DKA (diabetic ketoacidoses) Qualifiers: Diabetes mellitus type: type 1 Diabetes mellitus complication detail: without coma Qualified Code(s): E10.10 - Type 1 diabetes mellitus with ketoacidosis without coma Nausea and vomiting Qualifiers: Vomiting type: unspecified Vomiting Intractability: non-intractable Qualified Code(s): R11.2 - Nausea with vomiting, unspecified Disposition: Admitted As Inpatient Condition: Good Referrals: Ren Artis MD [Primary Care Provider] - Forms: ED Satisfaction Letter General Adult HPI - General Chief complaint: ED Recheck/Abnormal Lab/Rx Stated complaint: DKA Time Seen by Provider: 12/10/17 19:13 Source: patient Mode of arrival: private vehicle Limitations: no limitations Nursing Notes Reviewed: Yes Vital Signs Reviewed: Yes - History of Present Illness Pain Scale: 7 - Related Data Home Medications Medication Instructions Recorded Confirmed ARIPiprazole [Abilify] 10 mg PO DAILY 05/15/17 12/10/17 Levothyroxine [Synthroid] 75 mcg PO DAILY 06/21/17 12/10/17 Ergocalciferol (VITAMIN D2) 50,000 unit PO QWEEK 06/22/17 12/10/17 [Drisdol (50,000 Unit)] Folic Acid/Vit Bcomp,C [Renal-Sabina 1 tab PO DAILY 12/10/17 12/10/17 Tablet] Pregabalin [Lyrica] 50 mg PO BID 12/10/17 12/10/17 SUMAtriptan Succinate [Imitrex] 100 mg PO DAILY PRN 12/10/17 12/10/17 Subcutaneous Insulin Pump [T:Slim] 1 each MC AD 12/10/17 12/10/17 Previous Rx's Medication Instructions Recorded HYDROcodone/Acet 5/325 mg [[place] 1 tab PO Q6H PRN 3 Days #12 tab 12/06/17 5-325 mg] Oxycodone HCl/Acetaminophen 1 each PO Q4HR PRN 2 Days #8 tablet 12/07/17 [Percocet 5-325 mg Tablet] Allergies Allergy/AdvReac Type Severity Reaction Status Date / Time naproxen [From Naprosyn] Allergy Difficulty Verified 12/06/17 17:04 Breathing Penicillins Allergy Rash Verified 07/09/17 21:19 sulfamethoxazole Allergy Itching Verified 08/25/17 10:28 [From Bactrim] tramadol [From Ultram] Allergy Hives Verified 12/06/17 17:04 trimethoprim [From Bactrim] Allergy Itching Verified 08/25/17 10:28 Constitutional: Denies: fever Respiratory: Denies: cough Gastrointestinal: Reports: nausea, vomiting. 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 history - Social History Smoking Status: Current every day smoker Smokeless Tobacco Status: No Alcohol use: Reports: none Drug use: Reports: none Physical Exam - General Limitations: no limitations General appearance: alert, in no apparent distress Course Vital Signs Temperature 98.0 F 12/10/17 19:10 Pulse Rate 138 12/10/17 19:10 Respiratory Rate 22 12/10/17 19:10 Blood Pressure 124/82 12/10/17 19:10 O2 Sat by Pulse Oximetry 98 12/10/17 19:10 Temperature 98.0 F 12/10/17 19:45 Pulse Rate 97 12/10/17 20:32 Respiratory Rate 20 12/10/17 20:32 Blood Pressure 120/87 12/10/17 20:32 O2 Sat by Pulse Oximetry 100 12/10/17 20:32 Oxygen Delivery Oxygen Delivery Room Air Medical Decision Making - Medical Records Medical records reviewed: Yes I reviewed the patient's medical records. - Lab Data Lab results reviewed: Yes I reviewed the patient's lab results. Result diagrams: 12/10/17 19:55 12/10/17 19:55 Lab Results 12/10/17 12/10/17 12/10/17 Range/Units 19:50 19:50 19:55 WBC 18.5 H (4.3-11.1) K/mcL RBC 5.29 H (3.82-4.97) M/mcL Hgb 16.2 H (11.5-15.4) g/dL Hct 49.8 H (35.3-44.9) % MCV 94.1 (83.0-100.0) fL MCH 30.6 (28.0-33.3) pg MCHC 32.5 (31.6-35.5) g/dL RDW 13.7 (11.5-14.5) % Plt Count 342 (140-400) K/mcL MPV 10.2 (9.4-12.4) fL Immature Gran % 0.8 (0-4) % Seg Neutrophils % 89.6 % Lymphocytes % 5.6 % Monocytes % 3.4 % Eosinophils % 0.1 % Basophils % 0.5 % Neutrophils # 16.5 H (1.6-8.9) K/mcL Lymphocytes # 1.0 (0.6-4.6) K/mcL Monocytes # 0.6 (0.0-1.3) K/mcL Eosinophils # 0.0 (0.0-0.6) K/mcL Basophils # 0.1 (0.0-0.2) K/mcL VBG pH (7.32-7.42) pH Units VBG pCO2 (41-51) mmHg VBG pO2 (25-50) mmHg VBG HCO3 (21-27) mEq/L Sodium (136-145) mEq/L Potassium (3.5-5.1) mEq/L Chloride (98-107) mEq/L Carbon Dioxide (23-29) mEq/L BUN (6-20) mg/dL Creatinine (0.60-1.20) mg/dL Est GFR ( Amer) (> 60) Est GFR (Non-Af Amer) (> 60) BUN/Creatinine Ratio (6-26) Glucose (70-105) mg/dL Calculated Osmolality (280-300) Calcium (8.6-10.3) mg/dL Lipase (11-82) Units/L Beta-Hydroxybutyric Acd (0.02-0.27) mmol/L Serum , Qual (Negative) Urine Color Yellow (Yellow) Urine Clarity Cloudy A (Clear) Urine pH 5.5 (5.0-8.0) pH Units Ur Specific [place] > 1.030 H (1.010-1.025) Urine Protein Trace (Neg-Trace) mg/dL Urine Glucose (UA) >=1000 H (Normal) mg/dL Urine Ketones 80 H (Negative) mg/dL Urine Blood Negative (Negative) Urine Nitrite Negative (Negative) Urine Bilirubin Negative (Negative) Urine Urobilinogen Normal (Normal) mg/dL Ur Leukocyte Esterase Negative (Negative) Urine Microscopic RBC 5-15 H (0-3) per hpf Urine Microscopic WBC 5-15 H (0-3) per hpf Ur Squamous Epith Cells Many H (None-Few) per lpf Urine Bacteria Few (None-Few) per hpf Hyaline Casts None Seen (None-Few) per lpf Ur Culture Indicated? NO (NO) Urine Test Negative (Negative) Person Notif of Crit 12/10/17 12/10/17 12/10/17 Range/Units 19:55 19:55 19:55 WBC (4.3-11.1) K/mcL RBC (3.82-4.97) M/mcL Hgb (11.5-15.4) g/dL Hct (35.3-44.9) % MCV (83.0-100.0) fL MCH (28.0-33.3) pg MCHC (31.6-35.5) g/dL RDW (11.5-14.5) % Plt Count (140-400) K/mcL MPV (9.4-12.4) fL Immature Gran % (0-4) % Seg Neutrophils % % Lymphocytes % % Monocytes % % Eosinophils % % Basophils % % Neutrophils # (1.6-8.9) K/mcL Lymphocytes # (0.6-4.6) K/mcL Monocytes # (0.0-1.3) K/mcL Eosinophils # (0.0-0.6) K/mcL Basophils # (0.0-0.2) K/mcL VBG pH (7.32-7.42) pH Units VBG pCO2 (41-51) mmHg VBG pO2 (25-50) mmHg VBG HCO3 (21-27) mEq/L Sodium 137 (136-145) mEq/L Potassium 5.0 (3.5-5.1) mEq/L Chloride 100 (98-107) mEq/L Carbon Dioxide 8 L* (23-29) mEq/L BUN 20 (6-20) mg/dL Creatinine 1.16 (0.60-1.20) mg/dL Est GFR ( Amer) > 60 (> 60) Est GFR (Non-Af Amer) 54 L (> 60) BUN/Creatinine Ratio 17 (6-26) Glucose 602 H* (70-105) mg/dL Calculated Osmolality 315 H (280-300) Calcium 9.7 (8.6-10.3) mg/dL Lipase 20 (11-82) Units/L Beta-Hydroxybutyric Acd > 2.00 H (0.02-0.27) mmol/L Serum , Qual Negative (Negative) Urine Color (Yellow) Urine Clarity (Clear) Urine pH (5.0-8.0) pH Units Ur Specific [place] (1.010-1.025) Urine Protein (Neg-Trace) mg/dL Urine Glucose (UA) (Normal) mg/dL Urine Ketones (Negative) mg/dL Urine Blood (Negative) Urine Nitrite (Negative) Urine Bilirubin (Negative) Urine Urobilinogen (Normal) mg/dL Ur Leukocyte Esterase (Negative) Urine Microscopic RBC (0-3) per hpf Urine Microscopic WBC (0-3) per hpf Ur Squamous Epith Cells (None-Few) per lpf Urine Bacteria (None-Few) per hpf Hyaline Casts (None-Few) per lpf Ur Culture Indicated? (NO) Urine Test (Negative) Person Notif of Crit 12/10/17 Range/Units 20:02 WBC (4.3-11.1) K/mcL RBC (3.82-4.97) M/mcL Hgb (11.5-15.4) g/dL Hct (35.3-44.9) % MCV (83.0-100.0) fL MCH (28.0-33.3) pg MCHC (31.6-35.5) g/dL RDW (11.5-14.5) % Plt Count (140-400) K/mcL MPV (9.4-12.4) fL Immature Gran % (0-4) % Seg Neutrophils % % Lymphocytes % % Monocytes % % Eosinophils % % Basophils % % Neutrophils # (1.6-8.9) K/mcL Lymphocytes # (0.6-4.6) K/mcL Monocytes # (0.0-1.3) K/mcL Eosinophils # (0.0-0.6) K/mcL Basophils # (0.0-0.2) K/mcL VBG pH 7.05 L* (7.32-7.42) pH Units VBG pCO2 28 L (41-51) mmHg VBG pO2 64 H (25-50) mmHg VBG HCO3 8 L (21-27) mEq/L Sodium (136-145) mEq/L Potassium (3.5-5.1) mEq/L Chloride (98-107) mEq/L Carbon Dioxide (23-29) mEq/L BUN (6-20) mg/dL Creatinine (0.60-1.20) mg/dL Est GFR ( Amer) (> 60) Est GFR (Non-Af Amer) (> 60) BUN/Creatinine Ratio (6-26) Glucose (70-105) mg/dL Calculated Osmolality (280-300) Calcium (8.6-10.3) mg/dL Lipase (11-82) Units/L Beta-Hydroxybutyric Acd (0.02-0.27) mmol/L Serum , Qual (Negative) Urine Color (Yellow) Urine Clarity (Clear) Urine pH (5.0-8.0) pH Units Ur Specific [place] (1.010-1.025) Urine Protein (Neg-Trace) mg/dL Urine Glucose (UA) (Normal) mg/dL Urine Ketones (Negative) mg/dL Urine Blood (Negative) Urine Nitrite (Negative) Urine Bilirubin (Negative) Urine Urobilinogen (Normal) mg/dL Ur Leukocyte Esterase (Negative) Urine Microscopic RBC (0-3) per hpf Urine Microscopic WBC (0-3) per hpf Ur Squamous Epith Cells (None-Few) per lpf Urine Bacteria (None-Few) per hpf Hyaline Casts (None-Few) per lpf Ur Culture Indicated? (NO) Urine Test (Negative) Person Notif of Zainab Fidelinakayla Arzate - Radiology Data Radiology results reviewed: Yes I reviewed the patient's radiology results. Chest X-Ray 12/10/17 19:17 IMPRESSION: No acute cardiopulmonary disease. D/ / Dionisio Tucker MD / Dionisio Tucker MD Interpreting Provider: Dionisio Tucker MD - EKG Data EKG #1 EKG attestation: Yes I reviewed and interpreted this EKG. EKG results narrative: EKG shows a sinus tachycardia with ventricular rate of 125. No acute ST segment elevation or depression. No ectopy. Critical Care Time Critical Care Time: Yes Total Critical Care Time: 40 Attestation: Critical care performed: Time is exclusive of separately billable procedures. Time includes: direct patient care, patient reassessment, coordination of patient care, interpretation of data (laboratory data, radiology data, and respiratory data), review of patient's medical records, medical consultation and documentation of patient care. Procedures included in critical care time: Procedures excluded from critical care time: Attestation Statement - Attestation Attestation: I, Rafa Mendoza MD, personally evaluated this patient and discussed their management with the resident physician. I reviewed the resident's note and agree with the documented findings, medical decision making, and plan of care. 32-year-old female with history of insulin-dependent diabetes presents complaining of nausea and vomiting for about one week. She complains of generalized body aches and myalgias with abdominal cramping. She had routine preop lab work done earlier today for surgery for a fractured arm and was called at home and advised to come to the emergency department because her lab work suggested DKA. She does have a prior history of DKA. On examination patient is a well-developed well-nourished female in mild distress. She is alert and oriented 3. There is no cyanosis or diaphoresis. She is tachypneic. Breath sounds are clear and equal bilaterally. Heart regular with a moderate tachycardia. Abdomen is soft with increased bowel sounds. Mild diffuse tenderness. Labs reviewed. Consistent with DKA. Patient received IV fluids and started on insulin drip. The hospitalist, Dr. Gaytan, was consulted and accepted admission of the patient.
[2017-12-10] MEDS ORDERED: *HR* Promethazine 25 MG/ML VIAL IVP ONE (21:13)
[2017-12-10] MEDS ORDERED: D5% in 0.45% NACL w KCl 20 MEQ/1,000 ML MLS IVC PRN (22:00)
[2017-12-10] MEDS ORDERED: 0.45 % Sodium Chloride w/KCl 20 MEQ/1,000 ML MLS IVC SCH (22:00)
[2017-12-10] MEDS ORDERED: D5% in 0.45% NACL 1,000 ML IVC PRN (22:00)
[2017-12-10] MEDS ORDERED: Insulin Regular, Human 100 UNIT/ML IV PRN ×2 (22:00)
[2017-12-10] MEDS ORDERED: Naloxone 0.4 MG/ML INJ IVP PRN (22:03)
[2017-12-10] MEDS ORDERED: *HR* Promethazine 25 MG/ML VIAL IVP PRN (22:04)
--- NOTE | 2017-12-10 22:10 | Internal Med History&Physical ---
<Alan Aiken - Last Filed: 12/10/17 22:08> Date of Encounter: 12/10/17 Time of Encounter: 22:08 Internal Medicine - H&P: HPI Chief complaint: Nausea and vomiting Admitted From: Emergency Dept Plans for Post Hospital Care: Home History of present illness: Ms. Goyal is a 32 year old female with history of type 1 diabetes, hypothyroidism, bipolar disorder who presents with nausea and vomiting and abnormal labs. Patient states that she had labs drawn today for preoperative testing for planned surgery on her right wrist and was called and told that she was in DKA need to come the emergency department. Patient states that approximately a week and half ago she was treated as an outpatient for bronchitis with antibiotics and steroids. She states about a week ago she developed nausea and vomiting has been vomiting every day for the last week. She reports epigastric pain. She states she has not looked at her vomiting but does not think it is nonbloody. She reports her blood sugars been running 200- 500. She reports using an insulin pump at home and has been using this up until today where she feels like it was not working so she removed her insulin pump. She reports dysuria and chills but denies fevers. She reports she did have a productive cough with her bronchitis but this has resolved, now her cough is dry and improving. Denies chest pain, shortness of breath, diarrhea, lower extremity swelling. Past Med Surg Social Fam HX - Past Medical History Attestation: Yes The following information was validated with the patient. Source: patient Medical history: diabetes, thyroid disease, other Additional medical history: neuropathy Psychiatric history: bipolar, depression - Past Surgical History Surgical History: no surgical history - Social History Smoking Status: Current every day smoker Packs per day: 0.5 Smokeless Tobacco Status: No Alcohol use: none Drug use: none - Family History Father Family Member Ethnicity: Non- Living Status: Hx Family Cardiac Disorders: Yes (NV, HLD, HTN) Mother Family Member Ethnicity: Non- Living Status: Still Living Hx Family Cardiac Disorders: Yes (NV, HTN, HLD) Hx Family Endocrine Disorder: Yes (DM) Sister Family Member Ethnicity: Non- Living Status: Still Living Internal Medicine - H&P: Meds ARIPiprazole [Abilify] 10 mg PO DAILY 05/15/17 [History] Levothyroxine [Synthroid] 75 mcg PO DAILY 06/21/17 [History] Ergocalciferol (VITAMIN D2) [Drisdol (50,000 Unit)] 50,000 unit PO QWEEK [History] HYDROcodone/Acet 5/325 mg [[place] 5-325 mg] 1 tab PO Q6H PRN 3 Days #12 tab 12/06 [Rx] Oxycodone HCl/Acetaminophen [Percocet 5-325 mg Tablet] 1 each PO Q4HR PRN 2 Days #8 tablet 12/07/17 [Rx] Folic Acid/Vit Bcomp,C [Renal-Sabina Tablet] 1 tab PO DAILY 12/10/17 [History] Pregabalin [Lyrica] 50 mg PO BID 12/10/17 [History] SUMAtriptan Succinate [Imitrex] 100 mg PO DAILY PRN 12/10/17 [History] Subcutaneous Insulin Pump [T:Slim] 1 each MC AD 12/10/17 [History] 3 Allergy/AdvReac Type Severity Reaction Status Date / Time naproxen [From Naprosyn] Allergy Difficulty Verified 12/06/17 17:04 Breathing Penicillins Allergy Rash Verified 07/09/17 21:19 sulfamethoxazole Allergy Itching Verified 08/25/17 10:28 [From Bactrim] tramadol [From Ultram] Allergy Hives Verified 12/06/17 17:04 trimethoprim [From Bactrim] Allergy Itching Verified 08/25/17 10:28 All Systems PM: A 10-system review of systems was performed and is negative for pertinent findings except as documented above in the HPI. - Constitutional Constitutional: chills, fatigue, lethargy, no fever(s) - EENT Eyes: no blurry vision, no change in vision Nose, mouth and throat: no sinus pain, no sinus pressure, no sore throat - Cardiovascular Cardiovascular ROS IM: no chest pain, no dyspnea, no edema, no lightheadedness, no syncope - Respiratory Respiratory: cough, no dyspnea, no wheezing, no chest congestion, no excessive phlegm production, no change in phlegm color - Gastrointestinal Gastrointestinal: abdominal pain, nausea, vomiting, no change in bowel habits, no change in stool character, no diarrhea, no hematemesis - Genitourinary Genitourinary: dysuria, no urinary frequency, no urinary hesitancy - Musculoskeletal Musculoskeletal ROS IM: no numbness, no tingling - Integumentary Integumentary IM: no erythema, no new lesions - Neurological Neurological ROS: no confusion, no dizziness, no numbness, no tingling, no weakness - Psychiatric Psychiatric: depression, no anxiety - Endocrine Endocrine IM: polydipsia, polyuria - Hematologic/Lymphatic Hematologic/Lymphatic: no easy bleeding, no easy bruising - Allergic/Immunologic Allergic/Immunologic: no tongue swelling, no throat swelling - Constitutional Vitals: Temp Pulse Resp BP Pulse Ox 98.0 F 97 20 120/87 100 12/10/17 19:45 12/10/17 20:32 12/10/17 20:32 12/10/17 20:32 12/10/17 20:32 General appearance: Present: A&O X 3, pleasant, no acute distress Exam: . - Head Head exam: Present: atraumatic, normal inspection, normocephalic - Eye Eye exam: Present: EOMI, PERRL - ENT ENT exam: Present: mucous membranes dry, normal oropharynx - Neck Neck exam general surgery: Present: full ROM, supple - Respiratory Respiratory exam: Present: CTAB. Absent: rales, rhonchi, wheezes - Cardiovascular Cardiovascular exam: Present: +S1, +S2, tachycardia. Absent: gallop, irregular rhythm, rubs, systolic murmur - GI/Abdominal GI/Abdominal exam: Present: normal bowel sounds, soft, tenderness (mild, epigastric), no peritoneal signs. Absent: distended, firm - Extremities Exam Extremities exam: Present: warm. Absent: pedal edema, tenderness Additional comments: Splint applied to right wrist. - Neurological Exam Neurological exam: Present: alert, CN II-XII intact, oriented X3, no focal deficits, strengths equal and symetr throughout. Absent: facial droop, speech deficit - Psychiatric Psychiatric exam: Present: normal affect, normal mood - Skin Skin exam: Present: dry, intact, warm Internal Med - H&P Results - Labs CBC & Chem 7: 12/10/17 19:55 12/10/17 19:55 - Assessment and plan (1) DKA (diabetic ketoacidoses) Current Visit: No Status: Acute Assessment and plan: Patient presents with nausea and vomiting likely due to DKA. Anion gap is 29, bicarbonate 8, venous pH is 7.05, glucose is 602, serum and urine ketones are positive. Likely due to recent steroid use. EKG unremarkable for any ischemic changes, infectious workup negative. Patient did stop using her insulin pump today but given her symptoms and her reported blood sugars being elevated is likely she has been DKA prior to today. Patient received 2 L fluid bolus in the emergency department. Has remained hemodynamically stable. Continue fluid replacement with half normal saline w/ 20 KCL per protocol. Continue insulin infusion per protocol. BMP every 4 hours. Qualifiers: Diabetes mellitus type: type 1 Diabetes mellitus complication detail: without coma Qualified Code(s): E10.10 - Type 1 diabetes mellitus with ketoacidosis without coma (2) Type I diabetes mellitus Current Visit: Yes Status: Chronic Assessment and plan: Currently DKA as discussed above. Patient no longer wants to use her insulin pump and would like to go back to insulin subcutaneous shots. Once DKA is resolved we will transition her to basal bolus insulin dosing. Hemoglobin A1c 8.4. Qualifiers: Diabetes mellitus complication status: with ketoacidosis Diabetes mellitus complication detail: without coma Qualified Code(s): E10.10 - Type 1 diabetes mellitus with ketoacidosis without coma (3) Hypothyroidism Current Visit: Yes Status: Chronic Assessment and plan: Currently on Synthroid 75 g by mouth daily. We will continue this. Check TSH morning. Qualifiers: Hypothyroidism type: unspecified (4) Bipolar disease, chronic Current Visit: Yes Status: Acute Assessment and plan: Appears stable. Held Abilify for now but will restart when patient is able to take by mouth medications. (5) Fracture of right distal radius Current Visit: No Status: Acute Assessment and plan: Currently following with or the with plans for operative management on Friday, will likely need to be delayed given the patient is currently in DKA. No acute change. Qualifiers: Encounter type: subsequent encounter Fracture type: closed Fracture morphology: unspecified fracture morphology Fracture healing: with routine healing Qualified Code(s): S52.501D - Unspecified fracture of the lower end of right radius, subsequent encounter for closed fracture with routine healing (6) DVT prophylaxis Current Visit: Yes Status: Acute Assessment and plan: Heparin 5000 units subcutaneous twice a day (7) Leukocytosis Current Visit: Yes Status: Acute Assessment and plan: Patient presents with leukocytosis of 18.5. Likely reactive in the setting of DKA. No bandemia. Patient does report dysuria but UA is unremarkable for any signs of infection, chest x-ray negative. Recheck CBC in the morning, we will hold off on any antibiotics at this time. Qualifiers: Leukocytosis type: unspecified Qualified Code(s): D72.829 - Elevated white blood cell count, unspecified - Time Spent With Patient Total time spent is greater than 50% in coordination of care (as documented) at patient's floor/unit and/or counseling patient: <Aroldo David - Last Filed: 12/10/17 23:25> Date of Encounter: 12/10/17 Internal Medicine - H&P: HPI History of present illness: Ms. Goyal is a 32 year old female All Systems PM: A 10-system review of systems was performed and is negative for pertinent findings except as documented above in the HPI. - Constitutional Vitals: Temp Pulse Resp BP Pulse Ox 98.0 F 97 20 136/86 100 12/10/17 19:45 12/10/17 20:32 12/10/17 22:09 12/10/17 22:09 12/10/17 20:32 Internal Med - H&P Results - Labs CBC & Chem 7: 12/10/17 19:55 12/10/17 19:55 - Assessment and plan (1) DKA (diabetic ketoacidoses) Current Visit: No Status: Acute Qualifiers: Diabetes mellitus type: type 1 Diabetes mellitus complication detail: without coma Qualified Code(s): E10.10 - Type 1 diabetes mellitus with ketoacidosis without coma (2) Hypothyroidism Current Visit: Yes Status: Chronic Qualifiers: Hypothyroidism type: unspecified (3) Type I diabetes mellitus Current Visit: Yes Status: Chronic Qualifiers: Diabetes mellitus complication status: with ketoacidosis Diabetes mellitus complication detail: without coma Qualified Code(s): E10.10 - Type 1 diabetes mellitus with ketoacidosis without coma (4) Fracture of right distal radius Current Visit: No Status: Acute Qualifiers: Encounter type: subsequent encounter Fracture type: closed Fracture morphology: unspecified fracture morphology Fracture healing: with routine healing Qualified Code(s): S52.501D - Unspecified fracture of the lower end of right radius, subsequent encounter for closed fracture with routine healing (5) Bipolar disease, chronic Current Visit: Yes Status: Acute (6) DVT prophylaxis Current Visit: Yes Status: Acute (7) Leukocytosis Current Visit: Yes Status: Acute Qualifiers: Leukocytosis type: unspecified Qualified Code(s): D72.829 - Elevated white blood cell count, unspecified - Time Spent With Patient Total time spent is greater than 50% in coordination of care (as documented) at patient's floor/unit and/or counseling patient: - Attending Attestation Angelique is a 32-year-old woman with poorly controlled type 1 diabetes who currently uses an insulin pump and on chart review is seen to have been admitted here in May 2017 for DKA. She presents now to the emergency room for preoperative labs clearance as she recently fractured her wrist and she is to undergo orthopedic surgery. She was then found to be in DKA based on her lab results. She states that over the past week she has had generalized malaise , epigastric on August and a sensation of feeling unwell. He states that today she was fed up with her insulin pump but she was not able to obtain adequate control and prefers to be back on her regular insulin injections. She also states that about a week and a half ago she was treated for bronchitis with levofloxacin and steroids. Here she is clinically stable with vital signs within normal limits. Physical exam remarkable for well-developed white female lying comfortably in bed in no acute distress. Slightly dry mucous membranes. No conjunctivae pallor. Chest without wheezing, rales or rhonchi. Cardiac exam with normal S1/S2 and no murmurs. Abdomen soft and mildly tender in the epigastrium with no peritoneal reaction. No signs of peripheral edema or cyanosis. Affect is appropriate. She is AAO 4. No evidence of skin/soft tissue infection on skin. Labs reviewed are remarkable for WBC of 18.5, hemoglobin of 16.2, VBG pH 7.05 and BMP bicarbonate of 8. Glucose 602 with positive beta hydroxybutyrate. UA does not show signs of infection but has elevated specific gravity and over 1000 glucose. Chest x-ray reviewed independently by me shows no signs of pulmonary vascular congestion or pneumonic consolidation. We will admit to monitored unit for DKA due to poor insulin therapy. Aggressive IV fluid resuscitation. Start with insulin bolus and continue with infusion. BMP every 2 hours. Hourly fingersticks. Keep insulin pump off and obtain diabetic consultation as well as endocrine follow-up for adjustment of either insulin pump rates or reverting back to injections that she appears more comfortable with. DVT prophylaxis with heparin.
[2017-12-11 00:26] LABS: VBG HCO3 9 mEq/L (21-27); VBG PCO2 23 mmHg (41-51); VBG PH 7.17 pH Units (7.32-7.42); VBG PO2 154 mmHg (25-50)
[2017-12-11 00:42] LABS: BUN/Creatinine Ratio 22 (6-26); Blood Urea Nitrogen 18 mg/dL (6-20); Calcium 8.5 mg/dL (8.6-10.3); Carbon Dioxide 8 mEq/L (23-29); Chloride 114 mEq/L (98-107); Glucose 316 mg/dL (70-105); Osmolality,Calculated 304 (280-300); Potassium 4.7 mEq/L (3.5-5.1); Sodium 140 mEq/L (136-145); eGFR For Non-African Americans > 60 (> 60)
[2017-12-11] MEDS: 0.45 % Sodium Chloride w/KCl 20 MEQ/1,000 ML MLS IVC SCH ×4 (01:44→13:39)
[2017-12-11 04:20] LABS: Basophils # 0.1 K/mcL (0.0-0.2); Basophils % 0.5 %; Hematocrit 38.2 % (35.3-44.9); Immature Granulocytes % 0.7 % (0-4); Lymphocytes # 2.4 K/mcL (0.6-4.6); Lymphocytes % 15.6 %; Mean Corpuscular HGB Conc 33.5 g/dL (31.6-35.5); Mean Corpuscular Hemoglobin 30.7 pg (28.0-33.3); Mean Corpuscular Volume 91.6 fL (83.0-100.0); Mean Platelet Volume 9.8 fL (9.4-12.4); Monocytes # 1.2 K/mcL (0.0-1.3); Monocytes % 7.8 %; Neutrophils # 11.5 K/mcL (1.6-8.9); Platelet Count 263 K/mcL (140-400); Red Blood Count 4.17 M/mcL (3.82-4.97); Segmented Neutrophils % 75.4 %
[2017-12-11 04:21] LABS: Hemoglobin 12.8 g/dL (11.5-15.4)
[2017-12-11 04:41] LABS: BUN/Creatinine Ratio 24 (6-26); Blood Urea Nitrogen 16 mg/dL (6-20); Calcium 8.1 mg/dL (8.6-10.3); Carbon Dioxide 12 mEq/L (23-29); Chloride 114 mEq/L (98-107); Glucose 228 mg/dL (70-105); Magnesium 1.8 mg/dL (1.6-2.6); Osmolality,Calculated 290 (280-300); Potassium 4.4 mEq/L (3.5-5.1); Sodium 136 mEq/L (136-145); eGFR For Non-African Americans > 60 (> 60)
[2017-12-11] MEDS ORDERED: D5% in 0.45% NACL w KCl 20 MEQ/1,000 ML MLS IVC PRN (04:45)
[2017-12-11] MEDS: *HR* Heparin 5,000 UNIT/ML VIAL SQ SCH ×2 (05:34→17:44)
[2017-12-11 08:24] LABS: VBG HCO3 16 mEq/L (21-27); VBG PCO2 33 mmHg (41-51); VBG PH 7.29 pH Units (7.32-7.42); VBG PO2 157 mmHg (25-50)
[2017-12-11 08:34] LABS: BUN/Creatinine Ratio 23 (6-26); Blood Urea Nitrogen 14 mg/dL (6-20); Calcium 8.4 mg/dL (8.6-10.3); Carbon Dioxide 15 mEq/L (23-29); Chloride 115 mEq/L (98-107); Glucose 167 mg/dL (70-105); Osmolality,Calculated 286 (280-300); Potassium 3.6 mEq/L (3.5-5.1); Sodium 136 mEq/L (136-145); eGFR For Non-African Americans > 60 (> 60)
--- NOTE | 2017-12-11 10:03 | Internal Med Progress Note ---
Hospitalist Progress Note - Encounter Date of Encounter: 12/11/17 Time of Encounter: 10:02 - Subjective Interval History: Seen and examined at the bedside 32 F with PMD of Insulin dependent DM, TYpe I who is admitted and being managed for DKA, likely due to recent bronchitis She has no new resp symptoms in this admission and chest exam, along with CXr is clear She does have a R radial fracture for which she is awaiting ORIF by ortho as outpatient She is complaining of pain on the R wrist pain - Exam Vitals: Temp Pulse Resp BP Pulse Ox 97.6 F 95 18 107/64 98 12/11/17 07:26 12/11/17 08:00 12/11/17 07:26 12/11/17 07:26 12/11/17 07:26 Exam: General: AAOX3, not in any form of distress HEENT: EOM, pupils equal, round and reactive. Cardiovascular: S1, S2, RRR, no m/g/r Lungs: CTAB Abdomen: Soft, non-tender, no rigidity. : Deferred Extremities: R arm in cast, neurovascularly intact Neurological: no focal deficits, normal speech, Skin: Vitiligo Pulses: Carotid and radial pulses normal +2. - Assessment and Plan (1) DKA (diabetic ketoacidoses) Current Visit: Yes Status: Acute Assessment and Plan: Continue DKA protocol and bridge when AG Closes Continue to monitor BMP q4-6h (2) Hypothyroidism Current Visit: Yes Status: Chronic Assessment and Plan: Currently on Synthroid 75 g by mouth daily. TSH is low, however, patient was critically ill when checked Will continue synthroid (3) Type I diabetes mellitus Current Visit: Yes Status: Chronic Assessment and Plan: as ain DKA (4) Fracture of right distal radius Current Visit: Yes Status: Acute Assessment and Plan: Pain control Follow up with ortho as out-patient (5) Bipolar disease, chronic Current Visit: Yes Status: Chronic Assessment and Plan: resume home meds (6) DVT prophylaxis Current Visit: Yes Status: Acute Assessment and Plan: Heparin 5000 units subcutaneous twice a day (7) Leukocytosis Current Visit: Yes Status: Acute Assessment and Plan: Patient presented with leukocytosis of 18.5. Likely reactive in the setting of DKA. No bandemia. CXR and UA unremarkable Continue to monitor Afebrile, no source or focus of infection - Time Spent with Patient Total time spent is greater than 50% in coordination of care (as documented) at patient's floor/unit and/or counseling patient: Plan of Care Discussed with: patient Internal Medicine: Result - Labs CBC & Chem 7: 12/11/17 03:49 12/11/17 07:43 Labs: Short CBC 12/11/17 Range/Units 03:49 WBC 15.2 H (4.3-11.1) K/mcL Hgb 12.8 D (11.5-15.4) g/dL Hct 38.2 (35.3-44.9) % Plt Count 263 (140-400) K/mcL Neutrophils # 11.5 H (1.6-8.9) K/mcL BMP 12/11/17 12/11/17 12/11/17 00:08 03:49 07:43 Sodium 140 136 136 Potassium 4.7 4.4 3.6 Chloride 114 H 114 H 115 H Carbon Dioxide 8 L* 12 L 15 L BUN 18 16 14 Creatinine 0.82 0.68 0.61 Glucose 316 H 228 H 167 H Calcium 8.5 L 8.1 L 8.4 L Consult Discharge Plan - Plan Referrals: Ren Artis MD [Primary Care Provider] - (1) DKA (diabetic ketoacidoses) Qualifiers: Diabetes mellitus type: type 1 Diabetes mellitus complication detail: without coma Qualified Code(s): E10.10 - Type 1 diabetes mellitus with ketoacidosis without coma (2) Hypothyroidism Qualifiers: Hypothyroidism type: unspecified Qualified Code(s): E03.9 - Hypothyroidism, unspecified (3) Type I diabetes mellitus Qualifiers: Diabetes mellitus complication status: with ketoacidosis Diabetes mellitus complication detail: without coma Qualified Code(s): E10.10 - Type 1 diabetes mellitus with ketoacidosis without coma (4) Fracture of right distal radius Qualifiers: Encounter type: subsequent encounter Fracture type: closed Fracture morphology: unspecified fracture morphology Fracture healing: with routine healing Qualified Code(s): S52.501D - Unspecified fracture of the lower end of right radius, subsequent encounter for closed fracture with routine healing (7) Leukocytosis Qualifiers: Leukocytosis type: unspecified Qualified Code(s): D72.829 - Elevated white blood cell count, unspecified
[2017-12-11] MEDS: *HR* OxyCODONE/APAP 5/325 TABLET PO PRN ×2 (10:18→15:41)
[2017-12-11] MEDS ORDERED: Insulin DETEMIR 100 UNIT/ML X5UNITS SQ ONE (12:36)
[2017-12-11] MEDS ORDERED: *HR* Dextrose 50 % in Water (Syg) 50 ML SYRINGE IVP PRN (12:37)
[2017-12-11] MEDS ORDERED: Dextrose Gel 15 GM/37.5 ML TUBE PO PRN ×2 (12:37)
[2017-12-11] MEDS ORDERED: D5% in Water 1,000 ML IVC PRN (12:37)
[2017-12-11] MEDS ORDERED: *HR* OxyCODONE/APAP 5/325 TABLET PO PRN (12:38)
[2017-12-11] MEDS ORDERED: *HR* HYDROcodone/Acet 5/325 mg TABLET PO PRN (12:38)
[2017-12-11] MEDS ORDERED: SUMAtriptan succinate 50 MG TABLET PO PRN (12:49)
[2017-12-11] MEDS: ARIPiprazole 10 MG TABLET PO SCH (13:31)
[2017-12-11] MEDS: Renal Vitamin 1 CAP CAPSULE PO SCH (13:31)
[2017-12-11] MEDS: Pregabalin 50 MG CAPSULE PO SCH ×2 (13:44→21:00)
[2017-12-11 15:02] LABS: BUN/Creatinine Ratio 21 (6-26); Blood Urea Nitrogen 13 mg/dL (6-20); Calcium 8.1 mg/dL (8.6-10.3); Carbon Dioxide 16 mEq/L (23-29); Chloride 112 mEq/L (98-107); Glucose 286 mg/dL (70-105); Osmolality,Calculated 291 (280-300); Sodium 135 mEq/L (136-145); eGFR For Non-African Americans > 60 (> 60)
[2017-12-11] MEDS: Insulin LISPRO 300 UNITS/3 ML VIAL SQ SCH (17:43)
[2017-12-11] MEDS ORDERED: Insulin LISPRO 300 UNITS/3 ML VIAL SQ SCH (21:00)
[2017-12-11] MEDS ORDERED: Insulin DETEMIR 100 UNIT/ML X5UNITS SQ SCH (21:00)
[2017-12-12 03:34] LABS: Basophils % 0.4 %; Eosinophils # 0.1 K/mcL (0.0-0.6); Eosinophils % 1.6 %; Hematocrit 36.8 % (35.3-44.9); Hemoglobin 12.5 g/dL (11.5-15.4); Immature Granulocytes % 0.2 % (0-4); Lymphocytes # 2.4 K/mcL (0.6-4.6); Lymphocytes % 46.6 %; Mean Corpuscular Hemoglobin 30.7 pg (28.0-33.3); Mean Corpuscular Volume 90.4 fL (83.0-100.0); Mean Platelet Volume 9.5 fL (9.4-12.4); Monocytes # 0.3 K/mcL (0.0-1.3); Monocytes % 6.3 %; Neutrophils # 2.3 K/mcL (1.6-8.9); Platelet Count 189 K/mcL (140-400); Red Blood Count 4.07 M/mcL (3.82-4.97); Red Cell Distribution Width 13.5 % (11.5-14.5); Segmented Neutrophils % 44.9 %
[2017-12-12 03:52] LABS: BUN/Creatinine Ratio 23 (6-26); Blood Urea Nitrogen 12 mg/dL (6-20); Calcium 8.1 mg/dL (8.6-10.3); Carbon Dioxide 21 mEq/L (23-29); Chloride 112 mEq/L (98-107); Glucose 211 mg/dL (70-105); Osmolality,Calculated 294 (280-300); Potassium 3.4 mEq/L (3.5-5.1); Sodium 139 mEq/L (136-145); eGFR For Non-African Americans > 60 (> 60)
[2017-12-12] MEDS: *HR* Heparin 5,000 UNIT/ML VIAL SQ SCH (04:59)
[2017-12-12] MEDS: Pregabalin 50 MG CAPSULE PO SCH (08:05)
[2017-12-12] MEDS: *HR* OxyCODONE/APAP 5/325 TABLET PO PRN (08:05)
[2017-12-12] MEDS: ARIPiprazole 10 MG TABLET PO SCH (08:05)
[2017-12-12] MEDS: Renal Vitamin 1 CAP CAPSULE PO SCH (08:06)
[2017-12-12] MEDS: Insulin LISPRO 300 UNITS/3 ML VIAL SQ SCH (08:06)
--- NOTE | 2017-12-12 10:00 | Discharge Summary ---
- NOTES TO OUTPATIENT PROVIDER Notes to Outpatient Provider: follow up glucose levels- glucose logs. follow BMP for electrolytes. repeat TSH adn TFT as OP and adjust synthroid Date of Encounter: 12/12/17 Time of Encounter: 09:00 - Discharge Diagnosis (1) DKA (diabetic ketoacidoses) Priority: Primary Status: Acute Qualifiers: Diabetes mellitus type: type 1 Diabetes mellitus complication detail: without coma Qualified Code(s): E10.10 - Type 1 diabetes mellitus with ketoacidosis without coma (2) Hypothyroidism Priority: Secondary Status: Chronic Qualifiers: Hypothyroidism type: acquired Qualified Code(s): E03.9 - Hypothyroidism, unspecified (3) Type I diabetes mellitus Priority: Secondary Status: Chronic Qualifiers: Diabetes mellitus complication status: with ketoacidosis Diabetes mellitus complication detail: without coma Qualified Code(s): E10.10 - Type 1 diabetes mellitus with ketoacidosis without coma (4) Fracture of right distal radius Priority: Secondary Status: Acute Qualifiers: Encounter type: subsequent encounter Fracture type: closed Fracture morphology: unspecified fracture morphology Fracture healing: with routine healing Qualified Code(s): S52.501D - Unspecified fracture of the lower end of right radius, subsequent encounter for closed fracture with routine healing (5) Bipolar disease, chronic Priority: Secondary Status: Chronic (6) DVT prophylaxis Priority: Secondary Status: Acute (7) Leukocytosis Priority: Secondary Status: Resolved Qualifiers: Leukocytosis type: unspecified Qualified Code(s): D72.829 - Elevated white blood cell count, unspecified Hospital course: Ms. Goyal is a 32 year old female with history of type 1 diabetes, hypothyroidism, bipolar disorder, recent Acute, displaced transverse fracture at the distal metaphysis of the right radius on 12/07. who presents with nausea and vomiting and abnormal labs. Patient states that she had labs drawn today for preoperative testing for planned surgery on her right wrist and was called and told that she was in DKA need to come the emergency department. Patient states that approximately a week and half ago she was treated as an outpatient for bronchitis with antibiotics and steroids. She states about a week ago she developed nausea and vomiting has been vomiting every day for the last week. She reports epigastric pain. She states she has not looked at her vomiting but does not think it is nonbloody. She reports her blood sugars been running 200- 500. She reports using an insulin pump at home and has been using this up until today where she feels like it was not working so she removed her insulin pump. patient presented with above presentation and was admitted for DKA. Anion gap is 29, bicarbonate 8, venous pH is 7.05, glucose is 602, serum and urine ketones are positive. Likely due to recent steroid use. EKG unremarkable for any ischemic changes, infectious workup negative. she was treated with insulin drip and her blood glucose were controlled and anion gap close and bicarbonate improved. my first encounter with the lizzien was on 12/12/17. as per my colleague check out if the blood glucose remained stable she was cleared for discharge. blood glucose followed post discontinuation of the insulin drip on . i discussed with the patient about wanting to continue her insulin pump. she does not want to continue with her insulin pump as she complains of multiple episodes of DKA since the pump was initiated. she tolerate diet and was started on long acting insulin and sliding scale before meals. diabetic education was provided by myself and nursing staff. as she had recent acute displaced transverse fracture at the distal metaphysis of the right radius on 12/07. orthopedics were consulted and they recommended her to see them at the office on friday 12/15 for further recommendations for the fracture and care- appointment was provided for the patient by the staff. she was counseled on smoking cessation and counseled on importance of compliance to her insulin and other medications. she is to visit the nearest ED if her blood glucose is above 400. CXR: IMPRESSION: No acute cardiopulmonary disease. Discharge discussed with: patient, nurse, product consultant Time spent discussing smoking cessation with patient: 3 to 10 minutes - Time Spent with Patient Total time spent providing and/or coordinating discharge services: Greater than 30 minutes (40) - Discharge Medications Prescriptions: Insulin Degludec [Tresiba Flextouch U-100] 10 unit SQ HS #1 pkg Insulin LISPRO [Humalog Kwikpen U-100] 0 unit SQ TIDAC #1 pkg Home Medications: ARIPiprazole [Abilify] 10 mg PO DAILY 05/15/17 [History] Levothyroxine [Synthroid] 75 mcg PO DAILY 06/21/17 [History] Ergocalciferol (VITAMIN D2) [Drisdol (50,000 Unit)] 50,000 unit PO QWEEK [History] HYDROcodone/Acet 5/325 mg [Calvin 5-325 mg] 1 tab PO Q6H PRN 3 Days #12 tab 12/06 [Rx] Oxycodone HCl/Acetaminophen [Percocet 5-325 mg Tablet] 1 each PO Q4HR PRN 2 Days #8 tablet 12/07/17 [Rx] Folic Acid/Vit Bcomp,C [Renal-Sabina Tablet] 1 tab PO DAILY 12/10/17 [History] Pregabalin [Lyrica] 50 mg PO BID 12/10/17 [History] SUMAtriptan Succinate [Imitrex] 100 mg PO DAILY PRN 12/10/17 [History] Insulin Degludec [Tresiba Flextouch U-100] 10 unit SQ HS #1 pkg 12/12/17 [Rx] Insulin LISPRO [Humalog Kwikpen U-100] 0 unit SQ TIDAC #1 pkg 12/12/17 [Rx] Allergies/Adverse Reactions: 3 Allergy/AdvReac Type Severity Reaction Status Date / Time naproxen [From Naprosyn] Allergy Difficulty Verified 12/06/17 17:04 Breathing Penicillins Allergy Rash Verified 07/09/17 21:19 sulfamethoxazole Allergy Itching Verified 08/25/17 10:28 [From Bactrim] tramadol [From Ultram] Allergy Hives Verified 12/06/17 17:04 trimethoprim [From Bactrim] Allergy Itching Verified 08/25/17 10:28 Date of admission: 12/10/17 21:58 Primary care physician: Ren Artis MD - Constitutional Vitals: Temp Pulse Resp BP Pulse Ox 98.4 F 120 18 114/83 95 12/12/17 07:59 12/12/17 07:59 12/12/17 07:59 12/12/17 07:59 12/12/17 07:59 General appearance: Present: A&O X 3, pleasant, no acute distress Exam: General: AAOX3, not in any form of distress HEENT: EOM, pupils equal, round and reactive. Cardiovascular: S1, S2, RRR, no m/g/r Lungs: CTAB Abdomen: Soft, non-tender, no rigidity. : Deferred Extremities: R arm in osmel wrap, neurovascularly intact Neurological: no focal deficits, normal speech, Skin: warm, dry Pulses: Carotid and radial pulses normal +2. - Patient Status Disposition: Home, Self-Care Condition: Good Functional capacity at discharge: independent ambulation Overall status at discharge: patient is progressing back to baseline - Discharge Instructions Follow Up With: Ren Artis MD [Primary Care Provider] - 12/17/17 9:45 am - Diet and Activity Activity: increase activity as tolerated Diet: diabetic diet
[2017-12-12 11:37] VITALS: BP 114/81
--- NOTE | 2017-12-13 11:10 | Electrocardiograph Report ---
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
== END 2017-12-12 11:36 | disposition home or self-care (01) | DRG 420 ==
LOC: 2NNU 19:02 → EMEROOARM 19:02 → SUATTDRO 21:58 → 2NNU 22:28
PROVIDERS: ADMIT Internal Medicine; ATTEND Internal Medicine

== ENCOUNTER 2018-04-14 07:29 | Inpatient (IN) ==
--- NOTE | 2018-04-14 08:19 | Emergency Department Note ---
Disposition Clinical Impression: DKA (diabetic ketoacidoses) Qualifiers: Diabetes mellitus type: type 1 Diabetes mellitus complication detail: without coma Qualified Code(s): E10.10 - Type 1 diabetes mellitus with ketoacidosis without coma Disposition: Admitted As Inpatient Condition: Fair Referrals: Ren Artis MD [Primary Care Provider] - Forms: ED Satisfaction Letter Time of Disposition: 10:48 General Adult HPI - General Chief complaint: ED Nausea/Vomiting/Diarrhea Stated complaint: high blood sugar Time Seen by Provider: 04/14/18 07:39 Source: patient, EMS Mode of arrival: ambulatory Limitations: no limitations Nursing Notes Reviewed: Yes Vital Signs Reviewed: Yes - History of Present Illness HPI Narrative: Nontoxic-appearing 32-year-old female with a history of type 1 diabetes previously on an insulin pump presents for evaluation of elevated blood glucose, nausea, vomiting, and substernal nonradiating chest discomfort. Symptoms began this morning upon her awakening. She states that she felt nauseated and checked her sugar. Her glucometer read as "high". She states she administer 6 units of Humalog. Repeat Accu-Chek showed a glucose of 580. She did have one episode of vomiting. She states that during this, she noticed some discomfort in her chest. She describes this as a aching that does not radiate. She states she has never had any problems such as this in the past. She denies any history of cardiac disease. She denies any recent illness. Specifically, she denies any productive cough, fever, chills, abdominal pain, diarrhea, or other upper respiratory type symptoms. She states that up until one month ago, she had been taking Tresiba, however has since then been transitioned to NovoLog. Onset (ago): hour(s) Location: chest Radiation: non-radiation Pain Scale: 8 Quality: aching Consistency: constant Improves with: nothing Worsens with: nothing Associated symptoms: Reports: nausea/vomiting, other (Hyperglycemia) Treatments Prior to Arrival: other - Related Data Home Medications Medication Instructions Recorded Confirmed ARIPiprazole [Abilify] 10 mg PO DAILY 05/15/17 12/16/17 Levothyroxine [Synthroid] 75 mcg PO DAILY 06/21/17 12/16/17 Ergocalciferol (VITAMIN D2) 50,000 unit PO QWEEK 06/22/17 12/16/17 [Drisdol (50,000 Unit)] Pregabalin [Lyrica] 50 mg PO BID 12/10/17 12/16/17 SUMAtriptan Succinate [Imitrex] 100 mg PO DAILY PRN 12/10/17 12/16/17 Albuterol Neb 3 ml PO TID PRN 12/16/17 12/16/17 Insulin Pump 1 unit SQ DAILY 12/16/17 12/16/17 Mupirocin Calcium 1 appl .ROUTE BID 12/16/17 12/16/17 Nystatin Cream 1 appl .ROUTE BID 12/16/17 12/16/17 Proair Hfa 2 puff PO Q4H PRN 12/16/17 12/16/17 Previous Rx's Medication Instructions Recorded Oxycodone HCl/Acetaminophen 1 each PO Q4HR PRN 2 Days #8 tablet 12/07/17 [Percocet 5-325 mg Tablet] Blood-Glucose Meter, Drum-Type 1 each MC QID #1 kit 12/12/17 [Accu-Chek] Clindamycin [Cleocin] 450 mg PO TID #63 capsule 01/10/18 Ibuprofen 800 mg PO Q8H #30 tablet 01/10/18 Allergies Allergy/AdvReac Type Severity Reaction Status Date / Time naproxen [From Naprosyn] Allergy Difficulty Verified 01/26/18 13:53 Breathing Penicillins Allergy Rash Verified 01/26/18 13:53 sulfamethoxazole Allergy Itching Verified 01/26/18 13:53 [From Bactrim] tramadol [From Ultram] Allergy Hives Verified 01/26/18 13:53 trimethoprim [From Bactrim] Allergy Itching Verified 01/26/18 13:53 All systems ED: reviewed and negative except as stated. Review of Systems: As Per HPI Constitutional: Denies: fever, chills, weakness, weight change Eyes: Denies: eye pain, eye discharge, vision change ENT ED: Denies: ear pain, throat pain, dental pain, hearing loss, epistaxis, congestion, dysphagia Cardiovascular: Reports: as per HPI, chest pain. Denies: palpitations, dyspnea on exertion, edema, syncope Respiratory: Denies: cough, dyspnea, wheezes, hemoptysis, stridor Gastrointestinal: Reports: as per HPI, nausea, vomiting. Denies: abdominal pain, diarrhea, constipation, hematemesis, melena, hematochezia Genitourinary: Denies: dysuria, frequency, hematuria, discharge Musculoskeletal: Denies: back pain, neck pain, arthralgia, myalgia Integumentary: Denies: rash, abrasion, lesions Neurological: Denies: headache, weakness, numbness, paresthesias, confusion, abnormal gait, vertigo Psychiatric: Denies: anxiety, depression, suicidal thoughts, homicidal thoughts, auditory hallucinations, visual hallucinations Endocrine: Reports: as per HPI, other (Hyperglycemia). Denies: fatigue Hematological/Lymphatic: Denies: easy bleeding, easy bruising Allergic/Immunologic: Denies: facial swelling, urticaria Past Medical History - Past Medical History Attestation: Yes The following information was validated with the patient. Source: patient, nursing notes reviewed Medical history: Reports: asthma, diabetes, thyroid disease, other Surgical history: Reports: no surgical history Psychiatric history: Reports: anxiety, bipolar, depression OPTOELECTRONIC TECHNICIAN history: Reports: no OPTOELECTRONIC TECHNICIAN history - Social History Smoking Status: Current every day smoker Smokeless Tobacco Status: No Alcohol use: Reports: none Drug use: Reports: none Physical Exam - General General appearance: alert - Head Head exam: atraumatic, normocephalic, normal inspection - Eye Eye exam: Present: normal appearance, PERRL, EOMI. Absent: nystagmus - ENT ENT exam: mucous membranes dry - Neck Neck exam: Present: normal inspection, full ROM, trachea midline - Chest Chest inspection: Present: normal inspection, symmetric chest wall rise. Abs ent: tenderness - Respiratory Respiratory exam: Present: normal lung sounds bilaterally. Absent: respiratory distress, wheezes, stridor, accessory muscle use, prolonged expiratory phase - Cardiovascular Cardiovascular exam: Present: regular rate, normal rhythm, normal heart sounds - Abdominal Exam Abdominal exam: Present: soft, Non-Tender, normal bowel sounds. Absent: distention - Extremities Exam Extremities exam: Present: normal inspection, full ROM - Neurological Exam Neurological exam: Present: alert, oriented X3 - Psychiatric Psychiatric exam: Present: normal affect, normal mood - Skin Skin exam: Present: warm, dry, intact, normal color. Absent: rash Course Vital Signs Temperature 98.4 F 04/14/18 07:34 Pulse Rate 108 04/14/18 07:34 Respiratory Rate 18 04/14/18 07:34 Blood Pressure 109/65 04/14/18 07:34 O2 Sat by Pulse Oximetry 100 04/14/18 07:34 Temperature 98.4 F 04/14/18 07:34 Pulse Rate 96 04/14/18 10:22 Respiratory Rate 16 04/14/18 09:24 Blood Pressure 90/56 04/14/18 10:22 O2 Sat by Pulse Oximetry 97 04/14/18 10:22 Oxygen Delivery Oxygen Delivery Room Air Medical Decision Making - MDM Narrative Medical decision making narrative: Glucose elevated at 433. She has an anion gap of 22. Beta hydroxybutyric acid greater than 2. Large urinary ketones. Acidosis by way of VBG. She was given IV hydration here in the emergency department as well as started on an insulin drip. Potassium supplementation has been ordered. I discussed this patient's case with Dr. Anaya, ED attending. He has had a [id number] evaluation with the patient and agrees with the patient to the hospital service for further management of her diabetic ketoacidosis. I discussed this patient's case with the admitting hospitalist who accepted patient for admission to the hospitalist care. - Medical Records Medical records reviewed: Yes I reviewed the patient's medical records. - Lab Data Lab results reviewed: Yes I reviewed the patient's lab results. Lab results narrative: Lab Results 04/14/18 04/14/18 04/14/18 Range/Units 08:15 08:27 08:27 WBC (4.3-11.1) K/mcL RBC (3.82-4.97) M/mcL Hgb (11.5-15.4) g/dL Hct (35.3-44.9) % MCV (83.0-100.0) fL MCH (28.0-33.3) pg MCHC (31.6-35.5) g/dL RDW (11.5-14.5) % Plt Count (140-400) K/mcL MPV (9.4-12.4) fL Immature Gran % (0-4) % Seg Neutrophils % % Lymphocytes % % Monocytes % % Eosinophils % % Basophils % % Neutrophils # (1.6-8.9) K/mcL Lymphocytes # (0.6-4.6) K/mcL Monocytes # (0.0-1.3) K/mcL Eosinophils # (0.0-0.6) K/mcL Basophils # (0.0-0.2) K/mcL VBG pH (7.32-7.42) pH Units VBG pCO2 (41-51) mmHg VBG pO2 (25-50) mmHg VBG HCO3 (21-27) mEq/L Sodium 136 (136-145) mEq/L Potassium 3.7 (3.5-5.1) mEq/L Chloride 104 (98-107) mEq/L Carbon Dioxide 10 L* (23-29) mEq/L BUN 14 (6-20) mg/dL Creatinine 0.82 (0.60-1.20) mg/dL Est GFR ( Amer) > 60 (> 60) Est GFR (Non-Af Amer) > 60 (> 60) BUN/Creatinine Ratio 17 (6-26) Glucose 433 H (70-105) mg/dL Calculated Osmolality 301 H (280-300) Lactic Acid (0.5-2.2) mmol/L Calcium 9.5 (8.6-10.3) mg/dL Magnesium 1.7 (1.6-2.6) mg/dL Total Bilirubin 0.9 (0.3-1.0) mg/dL AST 35 (13-39) Units/L ALT 36 (7-52) Units/L Alkaline Phosphatase 76 (34-104) Units/L Troponin I < 0.03 (< 0.04) ng/mL Serum Total Protein 7.0 (6.4-8.9) g/dL Albumin 4.2 (3.5-5.7) g/dL Globulin 2.8 (2.4-3.5) g/dL Albumin/Globulin Ratio 1.5 (1.1-2.2) Beta-Hydroxybutyric Acd > 2.00 H (0.02-0.27) mmol/L Urine Color Yellow (Yellow) Urine Clarity Clear (Clear) Urine pH 5.5 (5.0-8.0) pH Units Ur Specific [place] > 1.030 H (1.010-1.025) Urine Protein Negative (Neg-Trace) mg/dL Urine Glucose (UA) >=1000 H (Normal) mg/dL Urine Ketones >=160 H (Negative) mg/dL Urine Blood Negative (Negative) Urine Nitrite Negative (Negative) Urine Bilirubin Negative (Negative) Urine Urobilinogen Normal (Normal) mg/dL Ur Leukocyte Esterase Negative (Negative) Ur Culture Indicated? NO (NO) Specimen Rejected 04/14/18 04/14/18 04/14/18 Range/Units 08:27 08:27 08:38 WBC 12.2 H (4.3-11.1) K/mcL RBC 5.00 H (3.82-4.97) M/mcL Hgb 15.4 (11.5-15.4) g/dL Hct 46.1 H (35.3-44.9) % MCV 92.2 (83.0-100.0) fL MCH 30.8 (28.0-33.3) pg MCHC 33.4 (31.6-35.5) g/dL RDW 12.9 (11.5-14.5) % Plt Count 228 (140-400) K/mcL MPV 10.0 (9.4-12.4) fL Immature Gran % 0.3 (0-4) % Seg Neutrophils % 81.3 % Lymphocytes % 11.8 % Monocytes % 4.5 % Eosinophils % 1.5 % Basophils % 0.6 % Neutrophils # 9.9 H (1.6-8.9) K/mcL Lymphocytes # 1.4 (0.6-4.6) K/mcL Monocytes # 0.6 (0.0-1.3) K/mcL Eosinophils # 0.2 (0.0-0.6) K/mcL Basophils # 0.1 (0.0-0.2) K/mcL VBG pH 7.26 L (7.32-7.42) pH Units VBG pCO2 25 L (41-51) mmHg VBG pO2 153 H (25-50) mmHg VBG HCO3 11 L (21-27) mEq/L Sodium (136-145) mEq/L Potassium (3.5-5.1) mEq/L Chloride (98-107) mEq/L Carbon Dioxide (23-29) mEq/L BUN (6-20) mg/dL Creatinine (0.60-1.20) mg/dL Est GFR ( Amer) (> 60) Est GFR (Non-Af Amer) (> 60) BUN/Creatinine Ratio (6-26) Glucose (70-105) mg/dL Calculated Osmolality (280-300) Lactic Acid (0.5-2.2) mmol/L Calcium (8.6-10.3) mg/dL Magnesium (1.6-2.6) mg/dL Total Bilirubin (0.3-1.0) mg/dL AST (13-39) Units/L ALT (7-52) Units/L Alkaline Phosphatase (34-104) Units/L Troponin I (< 0.04) ng/mL Serum Total Protein (6.4-8.9) g/dL Albumin (3.5-5.7) g/dL Globulin (2.4-3.5) g/dL Albumin/Globulin Ratio (1.1-2.2) Beta-Hydroxybutyric Acd (0.02-0.27) mmol/L Urine Color (Yellow) Urine Clarity (Clear) Urine pH (5.0-8.0) pH Units Ur Specific [place] (1.010-1.025) Urine Protein (Neg-Trace) mg/dL Urine Glucose (UA) (Normal) mg/dL Urine Ketones (Negative) mg/dL Urine Blood (Negative) Urine Nitrite (Negative) Urine Bilirubin (Negative) Urine Urobilinogen (Normal) mg/dL Ur Leukocyte Esterase (Negative) Ur Culture Indicated? (NO) Specimen Rejected Hemolyzed 04/14/18 Range/Units 09:20 WBC (4.3-11.1) K/mcL RBC (3.82-4.97) M/mcL Hgb (11.5-15.4) g/dL Hct (35.3-44.9) % MCV (83.0-100.0) fL MCH (28.0-33.3) pg MCHC (31.6-35.5) g/dL RDW (11.5-14.5) % Plt Count (140-400) K/mcL MPV (9.4-12.4) fL Immature Gran % (0-4) % Seg Neutrophils % % Lymphocytes % % Monocytes % % Eosinophils % % Basophils % % Neutrophils # (1.6-8.9) K/mcL Lymphocytes # (0.6-4.6) K/mcL Monocytes # (0.0-1.3) K/mcL Eosinophils # (0.0-0.6) K/mcL Basophils # (0.0-0.2) K/mcL VBG pH (7.32-7.42) pH Units VBG pCO2 (41-51) mmHg VBG pO2 (25-50) mmHg VBG HCO3 (21-27) mEq/L Sodium (136-145) mEq/L Potassium (3.5-5.1) mEq/L Chloride (98-107) mEq/L Carbon Dioxide (23-29) mEq/L BUN (6-20) mg/dL Creatinine (0.60-1.20) mg/dL Est GFR ( Amer) (> 60) Est GFR (Non-Af Amer) (> 60) BUN/Creatinine Ratio (6-26) Glucose (70-105) mg/dL Calculated Osmolality (280-300) Lactic Acid 2.2 (0.5-2.2) mmol/L Calcium (8.6-10.3) mg/dL Magnesium (1.6-2.6) mg/dL Total Bilirubin (0.3-1.0) mg/dL AST (13-39) Units/L ALT (7-52) Units/L Alkaline Phosphatase (34-104) Units/L Troponin I (< 0.04) ng/mL Serum Total Protein (6.4-8.9) g/dL Albumin (3.5-5.7) g/dL Globulin (2.4-3.5) g/dL Albumin/Globulin Ratio (1.1-2.2) Beta-Hydroxybutyric Acd (0.02-0.27) mmol/L Urine Color (Yellow) Urine Clarity (Clear) Urine pH (5.0-8.0) pH Units Ur Specific [place] (1.010-1.025) Urine Protein (Neg-Trace) mg/dL Urine Glucose (UA) (Normal) mg/dL Urine Ketones (Negative) mg/dL Urine Blood (Negative) Urine Nitrite (Negative) Urine Bilirubin (Negative) Urine Urobilinogen (Normal) mg/dL Ur Leukocyte Esterase (Negative) Ur Culture Indicated? (NO) Specimen Rejected Result diagrams: 04/14/18 08:27 04/14/18 08:27 Lab Results 04/14/18 04/14/18 04/14/18 Range/Units 08:15 08:27 08:27 WBC (4.3-11.1) K/mcL RBC (3.82-4.97) M/mcL Hgb (11.5-15.4) g/dL Hct (35.3-44.9) % MCV (83.0-100.0) fL MCH (28.0-33.3) pg MCHC (31.6-35.5) g/dL RDW (11.5-14.5) % Plt Count (140-400) K/mcL MPV (9.4-12.4) fL Immature Gran % (0-4) % Seg Neutrophils % % Lymphocytes % % Monocytes % % Eosinophils % % Basophils % % Neutrophils # (1.6-8.9) K/mcL Lymphocytes # (0.6-4.6) K/mcL Monocytes # (0.0-1.3) K/mcL Eosinophils # (0.0-0.6) K/mcL Basophils # (0.0-0.2) K/mcL VBG pH (7.32-7.42) pH Units VBG pCO2 (41-51) mmHg VBG pO2 (25-50) mmHg VBG HCO3 (21-27) mEq/L Sodium 136 (136-145) mEq/L Potassium 3.7 (3.5-5.1) mEq/L Chloride 104 (98-107) mEq/L Carbon Dioxide 10 L* (23-29) mEq/L BUN 14 (6-20) mg/dL Creatinine 0.82 (0.60-1.20) mg/dL Est GFR ( Amer) > 60 (> 60) Est GFR (Non-Af Amer) > 60 (> 60) BUN/Creatinine Ratio 17 (6-26) Glucose 433 H (70-105) mg/dL Calculated Osmolality 301 H (280-300) Lactic Acid (0.5-2.2) mmol/L Calcium 9.5 (8.6-10.3) mg/dL Magnesium 1.7 (1.6-2.6) mg/dL Total Bilirubin 0.9 (0.3-1.0) mg/dL AST 35 (13-39) Units/L ALT 36 (7-52) Units/L Alkaline Phosphatase 76 (34-104) Units/L Troponin I < 0.03 (< 0.04) ng/mL Serum Total Protein 7.0 (6.4-8.9) g/dL Albumin 4.2 (3.5-5.7) g/dL Globulin 2.8 (2.4-3.5) g/dL Albumin/Globulin Ratio 1.5 (1.1-2.2) Beta-Hydroxybutyric Acd > 2.00 H (0.02-0.27) mmol/L Urine Color Yellow (Yellow) Urine Clarity Clear (Clear) Urine pH 5.5 (5.0-8.0) pH Units Ur Specific [place] > 1.030 H (1.010-1.025) Urine Protein Negative (Neg-Trace) mg/dL Urine Glucose (UA) >=1000 H (Normal) mg/dL Urine Ketones >=160 H (Negative) mg/dL Urine Blood Negative (Negative) Urine Nitrite Negative (Negative) Urine Bilirubin Negative (Negative) Urine Urobilinogen Normal (Normal) mg/dL Ur Leukocyte Esterase Negative (Negative) Ur Culture Indicated? NO (NO) Specimen Rejected 04/14/18 04/14/18 04/14/18 Range/Units 08:27 08:27 08:38 WBC 12.2 H (4.3-11.1) K/mcL RBC 5.00 H (3.82-4.97) M/mcL Hgb 15.4 (11.5-15.4) g/dL Hct 46.1 H (35.3-44.9) % MCV 92.2 (83.0-100.0) fL MCH 30.8 (28.0-33.3) pg MCHC 33.4 (31.6-35.5) g/dL RDW 12.9 (11.5-14.5) % Plt Count 228 (140-400) K/mcL MPV 10.0 (9.4-12.4) fL Immature Gran % 0.3 (0-4) % Seg Neutrophils % 81.3 % Lymphocytes % 11.8 % Monocytes % 4.5 % Eosinophils % 1.5 % Basophils % 0.6 % Neutrophils # 9.9 H (1.6-8.9) K/mcL Lymphocytes # 1.4 (0.6-4.6) K/mcL Monocytes # 0.6 (0.0-1.3) K/mcL Eosinophils # 0.2 (0.0-0.6) K/mcL Basophils # 0.1 (0.0-0.2) K/mcL VBG pH 7.26 L (7.32-7.42) pH Units VBG pCO2 25 L (41-51) mmHg VBG pO2 153 H (25-50) mmHg VBG HCO3 11 L (21-27) mEq/L Sodium (136-145) mEq/L Potassium (3.5-5.1) mEq/L Chloride (98-107) mEq/L Carbon Dioxide (23-29) mEq/L BUN (6-20) mg/dL Creatinine (0.60-1.20) mg/dL Est GFR ( Amer) (> 60) Est GFR (Non-Af Amer) (> 60) BUN/Creatinine Ratio (6-26) Glucose (70-105) mg/dL Calculated Osmolality (280-300) Lactic Acid (0.5-2.2) mmol/L Calcium (8.6-10.3) mg/dL Magnesium (1.6-2.6) mg/dL Total Bilirubin (0.3-1.0) mg/dL AST (13-39) Units/L ALT (7-52) Units/L Alkaline Phosphatase (34-104) Units/L Troponin I (< 0.04) ng/mL Serum Total Protein (6.4-8.9) g/dL Albumin (3.5-5.7) g/dL Globulin (2.4-3.5) g/dL Albumin/Globulin Ratio (1.1-2.2) Beta-Hydroxybutyric Acd (0.02-0.27) mmol/L Urine Color (Yellow) Urine Clarity (Clear) Urine pH (5.0-8.0) pH Units Ur Specific [place] (1.010-1.025) Urine Protein (Neg-Trace) mg/dL Urine Glucose (UA) (Normal) mg/dL Urine Ketones (Negative) mg/dL Urine Blood (Negative) Urine Nitrite (Negative) Urine Bilirubin (Negative) Urine Urobilinogen (Normal) mg/dL Ur Leukocyte Esterase (Negative) Ur Culture Indicated? (NO) Specimen Rejected Hemolyzed 04/14/18 Range/Units 09:20 WBC (4.3-11.1) K/mcL RBC (3.82-4.97) M/mcL Hgb (11.5-15.4) g/dL Hct (35.3-44.9) % MCV (83.0-100.0) fL MCH (28.0-33.3) pg MCHC (31.6-35.5) g/dL RDW (11.5-14.5) % Plt Count (140-400) K/mcL MPV (9.4-12.4) fL Immature Gran % (0-4) % Seg Neutrophils % % Lymphocytes % % Monocytes % % Eosinophils % % Basophils % % Neutrophils # (1.6-8.9) K/mcL Lymphocytes # (0.6-4.6) K/mcL Monocytes # (0.0-1.3) K/mcL Eosinophils # (0.0-0.6) K/mcL Basophils # (0.0-0.2) K/mcL VBG pH (7.32-7.42) pH Units VBG pCO2 (41-51) mmHg VBG pO2 (25-50) mmHg VBG HCO3 (21-27) mEq/L Sodium (136-145) mEq/L Potassium (3.5-5.1) mEq/L Chloride (98-107) mEq/L Carbon Dioxide (23-29) mEq/L BUN (6-20) mg/dL Creatinine (0.60-1.20) mg/dL Est GFR ( Amer) (> 60) Est GFR (Non-Af Amer) (> 60) BUN/Creatinine Ratio (6-26) Glucose (70-105) mg/dL Calculated Osmolality (280-300) Lactic Acid 2.2 (0.5-2.2) mmol/L Calcium (8.6-10.3) mg/dL Magnesium (1.6-2.6) mg/dL Total Bilirubin (0.3-1.0) mg/dL AST (13-39) Units/L ALT (7-52) Units/L Alkaline Phosphatase (34-104) Units/L Troponin I (< 0.04) ng/mL Serum Total Protein (6.4-8.9) g/dL Albumin (3.5-5.7) g/dL Globulin (2.4-3.5) g/dL Albumin/Globulin Ratio (1.1-2.2) Beta-Hydroxybutyric Acd (0.02-0.27) mmol/L Urine Color (Yellow) Urine Clarity (Clear) Urine pH (5.0-8.0) pH Units Ur Specific [place] (1.010-1.025) Urine Protein (Neg-Trace) mg/dL Urine Glucose (UA) (Normal) mg/dL Urine Ketones (Negative) mg/dL Urine Blood (Negative) Urine Nitrite (Negative) Urine Bilirubin (Negative) Urine Urobilinogen (Normal) mg/dL Ur Leukocyte Esterase (Negative) Ur Culture Indicated? (NO) Specimen Rejected - Radiology Data Radiology results reviewed: Yes I reviewed the patient's radiology results. Chest X-Ray 04/14/18 07:39 IMPRESSION: Unremarkable chest. D/ / Annie Austin MD / Annie Austin MD Interpreting Provider: Annie Austin MD - EKG Data EKG #1 EKG attestation: Yes I reviewed and interpreted this EKG. EKG results narrative: EKG shows a sinus rhythm at a rate of 99 bpm. TN interval 134, QRS duration 87, QT/QTc interval 345/443. No ectopy noted. No ST elevation. No change in morphology when compared to an EKG dated from 01/26/18.
[2018-04-14 08:29] LABS: Bilirubin,Urine Negative (Negative); Blood,Urine Negative (Negative); Clarity,Urine Clear (Clear); Color,Urine Yellow (Yellow); Glucose,Urine (UA) >=1000 mg/dL (Normal); Ketones,Urine >=160 mg/dL (Negative); Leukocyte Esterase,Urine Negative (Negative); Nitrite,Urine Negative (Negative); PH,Urine 5.5 pH Units (5.0-8.0); Protein,Urine Negative (Neg-Trace); Specific Gravity,Urine > 1.030 (1.010-1.025); Urobilinogen,Urine Normal (Normal)
[2018-04-14 08:41] LABS: VBG HCO3 11 mEq/L (21-27); VBG PCO2 25 mmHg (41-51); VBG PH 7.26 pH Units (7.32-7.42); VBG PO2 153 mmHg (25-50)
[2018-04-14 09:01] LABS: Troponin I < 0.03 ng/mL (< 0.04)
[2018-04-14 09:06] LABS: Alanine Aminotransferase 36 Units/L (7-52); Albumin 4.2 g/dL (3.5-5.7); Albumin/Globulin Ratio 1.5 (1.1-2.2); Alkaline Phosphatase 76 Units/L (34-104); Aspartate Amino Transferase 35 Units/L (13-39); BUN/Creatinine Ratio 17 (6-26); Bilirubin,Total 0.9 mg/dL (0.3-1.0); Blood Urea Nitrogen 14 mg/dL (6-20); Calcium 9.5 mg/dL (8.6-10.3); Carbon Dioxide 10 mEq/L (23-29); Chloride 104 mEq/L (98-107); Globulin 2.8 g/dL (2.4-3.5); Glucose 433 mg/dL (70-105); Magnesium 1.7 mg/dL (1.6-2.6); Osmolality,Calculated 301 (280-300); Potassium 3.7 mEq/L (3.5-5.1); Sodium 136 mEq/L (136-145); eGFR For Non-African Americans > 60 (> 60)
[2018-04-14] MEDS ORDERED: *HR* Dextrose 50 % in Water (Syg) 50 ML SYRINGE IVP PRN ×2 (09:21→16:00)
[2018-04-14] MEDS: 0.9 % Sodium Chloride 1,000 ML IVC SCH ×2 (09:22→11:05)
[2018-04-14] MEDS ORDERED: Potassium Chloride 40 MEQ, Lidocaine 1% 2 ML in D5% in Water 500 ML IVPB ONE (09:24)
[2018-04-14] MEDS ORDERED: Ondansetron 4 MG/2 ML VIAL IVP ONE (09:29)
[2018-04-14] MEDS ORDERED: Insulin Human Regular 100 UNIT in 0.9 % Sodium Chloride 100 ML IVC SCH (09:30)
[2018-04-14 10:13] LABS: Basophils # 0.1 K/mcL (0.0-0.2); Basophils % 0.6 %; Eosinophils # 0.2 K/mcL (0.0-0.6); Eosinophils % 1.5 %; Hematocrit 46.1 % (35.3-44.9); Hemoglobin 15.4 g/dL (11.5-15.4); Immature Granulocytes % 0.3 % (0-4); Lymphocytes # 1.4 K/mcL (0.6-4.6); Lymphocytes % 11.8 %; Mean Corpuscular HGB Conc 33.4 g/dL (31.6-35.5); Mean Corpuscular Hemoglobin 30.8 pg (28.0-33.3); Mean Corpuscular Volume 92.2 fL (83.0-100.0); Monocytes # 0.6 K/mcL (0.0-1.3); Monocytes % 4.5 %; Neutrophils # 9.9 K/mcL (1.6-8.9); Platelet Count 228 K/mcL (140-400); Red Cell Distribution Width 12.9 % (11.5-14.5); Segmented Neutrophils % 81.3 %
--- NOTE | 2018-04-14 11:48 | Internal Med History&Physical ---
Date of Encounter: 04/14/18 Time of Encounter: 11:48 Internal Medicine - H&P: HPI Chief complaint: Nausea, vomiting History of present illness: Ms. Goyal is a 32 year old female with past medical history of type 1 diabetes for 18 years, depression, hypothyroidism, asthma comes in with complain of nausea and vomiting. Patient had 4 episodes of diarrhea yesterday before everything started. 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 Patient later started having nausea and vomiting nonbilious nonbloody nature. Patient was previously on insulin pump about 10-11 months ago. Patient's is then being on tresiba 18 units at at bedtime and NovoLog sliding scale. For the past 2 days patient has not taking Clara back as she was not able to get it filled to pharmacy. Patient was just using sliding scale insulin. Patient denies any fevers, chills, cough, urinary difficulties. Patient did have associated chest discomfort somewhat radiating to the right arm similar to what she had on her previous DKA episodes which was about a year ago. Denied any sweating or palpitation. Has associated abdominal pain and feeling of shortness of breath when she had a chest discomfort. Denies any previous history of heart attacks. Patient was evaluated in ER was found to have DKA. EKG without acute changes. Mild leukocytosis, acidosis, unremarkable urinalysis and chest x-ray. Patient was interviewed in ER. Patient feeling much better. Nausea almost resolved. Has still some abdominal pain. Has chronic leg tremors. Denies any chest pain or difficulty breathing. Past Med Surg Social Fam HX - Past Medical History Medical history: asthma, diabetes, thyroid disease, other Additional medical history: neuropathy (feet, legs). diabetic seizures. Insulin pump Psychiatric history: anxiety, bipolar, depression - Past Surgical History Surgical History: no surgical history Additional surgical history: right wrist fx - Social History Smoking Status: Current every day smoker Smokeless Tobacco Status: No Alcohol use: none Drug use: none - Family History Father Family Member Ethnicity: Non- Living Status: Hx Family Cardiac Disorders: Yes (PA, HLD, HTN) Mother Family Member Ethnicity: Non- Living Status: Still Living Hx Family Cardiac Disorders: Yes (PA, HTN, HLD) Hx Family Endocrine Disorder: Yes (DM) Sister Family Member Ethnicity: Non- Living Status: Still Living Internal Medicine - H&P: Meds ARIPiprazole [Abilify] 10 mg PO DAILY 05/15/17 [History] Levothyroxine [Synthroid] 75 mcg PO DAILY 06/21/17 [History] Ergocalciferol (VITAMIN D2) [Drisdol (50,000 Unit)] 50,000 unit PO QWEEK 06/22/17 [History] Oxycodone HCl/Acetaminophen [Percocet 5-325 mg Tablet] 1 each PO Q4HR PRN 2 Days #8 tablet 12/07/17 [Rx] Pregabalin [Lyrica] 50 mg PO BID 12/10/17 [History] SUMAtriptan Succinate [Imitrex] 100 mg PO DAILY PRN 12/10/17 [History] Blood-Glucose Meter, Drum-Type [Accu-Chek] 1 each MC QID #1 kit 12/12/17 [Rx] Albuterol Neb 3 ml PO TID PRN 12/16/17 [History] Insulin Pump 1 unit SQ DAILY 12/16/17 [History] Mupirocin Calcium 1 appl .ROUTE BID 12/16/17 [History] Nystatin Cream 1 appl .ROUTE BID 12/16/17 [History] Proair Hfa 2 puff PO Q4H PRN 12/16/17 [History] Clindamycin [Cleocin] 450 mg PO TID #63 capsule 01/10/18 [Rx] Ibuprofen 800 mg PO Q8H #30 tablet 01/10/18 [Rx] Allergy/AdvReac Type Severity Reaction Status Date / Time naproxen [From Naprosyn] Allergy Difficulty Verified 01/26/18 13:53 Breathing Penicillins Allergy Rash Verified 01/26/18 13:53 sulfamethoxazole Allergy Itching Verified 01/26/18 13:53 [From Bactrim] tramadol [From Ultram] Allergy Hives Verified 01/26/18 13:53 trimethoprim [From Bactrim] Allergy Itching Verified 01/26/18 13:53 All Systems PM: A 10-system review of systems was performed and is negative for pertinent findings except as documented above in the HPI. - Constitutional Vitals: Temp Pulse Resp BP Pulse Ox 98.4 F 96 16 90/56 97 04/14/18 07:34 04/14/18 10:22 04/14/18 09:24 02/12/19 10:22 04/14/18 10:22 Exam: Constitutional: Vitals as noted. Conversant. No Apparent Distress. Well groomed. No obvious deformities. Eyes : Sclera white, conjunctiva clear, no lid lag, PEARLA. ENT : Grossly normal hearing. Oropharyngeal exam unremarkable. Moist mucus membranes. No JVD, no cervical lymphadenopathy. no thyromegaly or mass. Respiratory : Clear to auscultation bilaterally. No accessory muscle use, rales, rhonchi or wheezes Cardiovascular : RRR, +S1, +S2. no murmur, gallop, rubs. No chest wall ten derness GI/Abdominal : Soft, mild generalized tenderness, normal bowel sounds, soft, no peritoneal signs. no orgenomegaly or mass appreciated. no hernia. Musculoskeletal: no deformity noted. no edema or cyanosis. warm extremities, pulses palpable and symmetrical in UE/LE. no calf tenderness. Neurological: AO X3, CN II-XII grossly intact, grossly normal motor and sensory exam. Skin: No skin rash, lesions or ulcers noted. Pych: Good insight and judgement. Intact memory. AOx3. Internal Med - H&P Results - Labs CBC & Chem 7: 04/14/18 08:27 04/14/18 08:27 Labs: Short CBC 04/14/18 Range/Units 08:27 WBC 12.2 H (4.3-11.1) K/mcL Hgb 15.4 (11.5-15.4) g/dL Hct 46.1 H (35.3-44.9) % Plt Count 228 (140-400) K/mcL Neutrophils # 9.9 H (1.6-8.9) K/mcL BMP 04/14/18 08:27 Sodium 136 Potassium 3.7 Chloride 104 Carbon Dioxide 10 L* BUN 14 Creatinine 0.82 Glucose 433 H Calcium 9.5 Cardiac Enzymes 04/14/18 Range/Units 08:27 Troponin I < 0.03 (< 0.04) ng/mL Liver Function 04/14/18 Range/Units 08:27 Total Bilirubin 0.9 (0.3-1.0) mg/dL AST 35 (13-39) Units/L ALT 36 (7-52) Units/L Alkaline Phosphatase 76 (34-104) Units/L Albumin 4.2 (3.5-5.7) g/dL Urine 04/14/18 Range/Units 08:15 Urine Color Yellow (Yellow) Urine Clarity Clear (Clear) Urine pH 5.5 (5.0-8.0) pH Units Ur Specific [place] > 1.030 H (1.010-1.025) Urine Protein Negative (Neg-Trace) mg/dL Urine Glucose (UA) >=1000 H (Normal) mg/dL - ABG Interpretation ABG results: 04/14/18 08:38 VBG pH 7.26 L VBG pCO2 25 L VBG pO2 153 H VBG HCO3 11 L - EKG Data -: EKG Interpreted by Myself EKG shows normal: sinus rhythm Rate: normal - Impressions ITS Impressions Chest X-Ray 04/14/18 07:39 IMPRESSION: Unremarkable chest. D/ / Annie Austin MD / Annie Austin MD Interpreting Provider: Annie Austin MD - Assessment and plan (1) DKA (diabetic ketoacidoses) Current Visit: Yes Status: Acute Assessment and plan: - Continue patient on insulin DKA protocol - Monitor BMP every 4 hours - We will change to subcutaneous long-acting insulin when AG gap closes - Likely precipitated diarrhea and noncompliance with long-acting insulin. Qualifiers: Diabetes mellitus type: type 1 Diabetes mellitus complication detail: without coma Qualified Code(s): E10.10 - Type 1 diabetes mellitus with ketoacidosis without coma (2) Chest pain Current Visit: Yes Status: Acute Assessment and plan: - Epigastric in location . Some radiation to right arm. Nonexertional - EKG without acute changes. - Trend troponin - Less likely related to cardiac. Likely related to nausea and vomiting. Qualifiers: Chest pain type: unspecified Qualified Code(s): R07.9 - Chest pain, unspecified (3) DVT prophylaxis Current Visit: No Status: Acute Assessment and plan: Heparin subcutaneous (4) Nausea and vomiting Current Visit: No Status: Acute Assessment and plan: Improved - Likely related to DKA. Treatment as above Qualifiers: Vomiting type: unspecified Vomiting Intractability: non-intractable Qualified Code(s): R11.2 - Nausea with vomiting, unspecified (5) Depression Current Visit: No Status: Chronic Assessment and plan: We will continue home medications Qualifiers: Depression Type: other depression Qualified Code(s): F32.89 - Other spe cified depressive episodes (6) Hypothyroidism Current Visit: No Status: Chronic Assessment and plan: Continue home levothyroxine Qualifiers: Hypothyroidism type: acquired Qualified Code(s): E03.9 - Hypothyroidism, unspecified (7) Leukocytosis Current Visit: No Status: Resolved Assessment and plan: - Likely related to DKA and being dehydrated - Monitor off antibiotics for now Qualifiers: Leukocytosis type: unspecified Qualified Code(s): D72.829 - Elevated white blood cell count, unspecified - Time Spent With Patient Total time spent is greater than 50% in coordination of care (as documented) at patient's floor/unit and/or counseling patient:
[2018-04-14] MEDS: D5% in 0.45% NACL 1,000 ML IVC SCH ×2 (11:49→17:28)
[2018-04-14] MEDS ORDERED: Naloxone 0.4 MG/ML INJ IVP PRN (12:13)
[2018-04-14 12:47] LABS: Estimated Average Glucose 200 mg/dl; Hemoglobin A1C 8.6 %
[2018-04-14 13:05] LABS: BUN/Creatinine Ratio 17 (6-26); Blood Urea Nitrogen 10 mg/dL (6-20); Calcium 8.1 mg/dL (8.6-10.3); Carbon Dioxide 17 mEq/L (23-29); Chloride 113 mEq/L (98-107); Glucose 173 mg/dL (70-105); Osmolality,Calculated 289 (280-300); Potassium 3.9 mEq/L (3.5-5.1); Sodium 138 mEq/L (136-145); Troponin I < 0.03 ng/mL (< 0.04); eGFR For Non-African Americans > 60 (> 60)
[2018-04-14] MEDS ORDERED: Insulin DETEMIR 100 UNIT/ML X5UNITS SQ ONE (15:58)
[2018-04-14] MEDS ORDERED: Dextrose Gel 15 GM/37.5 ML TUBE PO PRN ×2 (16:00)
[2018-04-14] MEDS ORDERED: D5% in Water 1,000 ML IVC PRN (16:00)
[2018-04-14] MEDS ORDERED: Insulin LISPRO 300 UNITS/3 ML VIAL SQ SCH ×2 (16:30→21:00)
[2018-04-14] MEDS: *HR* Heparin 5,000 UNIT/ML VIAL SQ SCH ×2 (17:27→23:39)
--- NOTE | 2018-04-14 18:25 | Electrocardiograph Report ---
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
[2018-04-14] MEDS ORDERED: Nicotine 14 MG PATCH.TD24 TD SCH (20:00)
[2018-04-14] MEDS ORDERED: Insulin DETEMIR 100 UNIT/ML X5UNITS SQ SCH (21:00)
[2018-04-15 03:39] LABS: BUN/Creatinine Ratio 18 (6-26); Blood Urea Nitrogen 11 mg/dL (6-20); Calcium 8.1 mg/dL (8.6-10.3); Carbon Dioxide 19 mEq/L (23-29); Chloride 110 mEq/L (98-107); Glucose 257 mg/dL (70-105); Osmolality,Calculated 290 (280-300); Potassium 3.7 mEq/L (3.5-5.1); Sodium 136 mEq/L (136-145); eGFR For Non-African Americans > 60 (> 60)
[2018-04-15 04:21] LABS: Basophils % 0.7 %; Eosinophils # 0.3 K/mcL (0.0-0.6); Eosinophils % 5.2 %; Hematocrit 37.1 % (35.3-44.9); Hemoglobin 12.7 g/dL (11.5-15.4); Immature Granulocytes % 0.3 % (0-4); Lymphocytes # 2.2 K/mcL (0.6-4.6); Lymphocytes % 36.7 %; Mean Corpuscular HGB Conc 34.2 g/dL (31.6-35.5); Mean Corpuscular Hemoglobin 30.7 pg (28.0-33.3); Mean Corpuscular Volume 89.6 fL (83.0-100.0); Mean Platelet Volume 9.9 fL (9.4-12.4); Monocytes # 0.4 K/mcL (0.0-1.3); Monocytes % 6.2 %; Neutrophils # 3.1 K/mcL (1.6-8.9); Platelet Count 188 K/mcL (140-400); Red Blood Count 4.14 M/mcL (3.82-4.97); Red Cell Distribution Width 12.7 % (11.5-14.5); Segmented Neutrophils % 50.9 %
[2018-04-15 06:35] VITALS: BP 97/67
--- NOTE | 2018-04-15 15:47 | Discharge Summary ---
Orders not resulted at time of discharge: Pending orders 04/15/18 07:33 Test Result, Urine [URIN] Stat Date of Encounter: 04/15/18 Time of Encounter: 09:00 (Not see pt as she left floor already.) - Discharge Diagnosis (1) DVT prophylaxis Priority: Secondary Status: Acute (2) Depression Priority: Secondary Status: Chronic Qualifiers: Depression Type: other depression Qualified Code(s): F32.89 - Other specified depressive episodes (3) Hypothyroidism Priority: Secondary Status: Chronic Qualifiers: Hypothyroidism type: acquired Qualified Code(s): E03.9 - Hypothyroidism, unspecified (4) DKA (diabetic ketoacidoses) Priority: Primary Status: Acute Qualifiers: Diabetes mellitus type: type 1 Diabetes mellitus complication detail: without coma Qualified Code(s): E10.10 - Type 1 diabetes mellitus with ketoacidosis without coma (5) Nausea and vomiting Priority: Primary Status: Acute Qualifiers: Vomiting type: unspecified Vomiting Intractability: non-intractable Qualified Code(s): R11.2 - Nausea with vomiting, unspecified (6) Leukocytosis Priority: Primary Status: Resolved Qualifiers: Leukocytosis type: unspecified Qualified Code(s): D72.829 - Elevated white blood cell count, unspecified (7) Chest pain Priority: Primary Status: Acute Qualifiers: Chest pain type: unspecified Qualified Code(s): R07.9 - Chest pain, unspecified Hospital course: Ms. Goyal is a 32 year old female admitted as DKA. Pt signed AMA this morning and left before I have any chance to see her personally. RN explained risks to pt. - Time Spent with Patient Total time spent providing and/or coordinating discharge services: - Discharge Medications Home Medications: ARIPiprazole [Abilify] 10 mg PO DAILY 05/15/17 [History] Levothyroxine [Synthroid] 75 mcg PO DAILY 06/21/17 [History] Ergocalciferol (VITAMIN D2) [Drisdol (50,000 Unit)] 50,000 unit PO QWEEK 06/22/17 [History] Oxycodone HCl/Acetaminophen [Percocet 5-325 mg Tablet] 1 each PO Q4HR PRN 2 Days #8 tablet 12/07/17 [Rx] Pregabalin [Lyrica] 50 mg PO BID 12/10/17 [History] SUMAtriptan Succinate [Imitrex] 100 mg PO DAILY PRN 12/10/17 [History] Blood-Glucose Meter, Drum-Type [Accu-Chek] 1 each MC QID #1 kit 12/12/17 [Rx] Albuterol Neb 3 ml PO TID PRN 12/16/17 [History] Insulin Pump 1 unit SQ DAILY 12/16/17 [History] Mupirocin Calcium 1 appl .ROUTE BID 12/16/17 [History] Nystatin Cream 1 appl .ROUTE BID 12/16/17 [History] Proair Hfa 2 puff PO Q4H PRN 12/16/17 [History] Clindamycin [Cleocin] 450 mg PO TID #63 capsule 01/10/18 [Rx] Ibuprofen 800 mg PO Q8H #30 tablet 01/10/18 [Rx] Allergies/Adverse Reactions: Allergy/AdvReac Type Severity Reaction Status Date / Time naproxen [From Naprosyn] Allergy Difficulty Verified 01/26/18 13:53 Breathing Penicillins Allergy Rash Verified 01/26/18 13:53 sulfamethoxazole Allergy Itching Verified 01/26/18 13:53 [From Bactrim] tramadol [From Ultram] Allergy Hives Verified 01/26/18 13:53 trimethoprim [From Bactrim] Allergy Itching Verified 01/26/18 13:53 Date of admission: 04/14/18 16:11 Primary care physician: Ren Artis MD Consults: 04/14/18 07:54 Consult to Invasive Line Access Team [CONS] Stat Reason for Consult: difficult access Line Type: Midline PICC line indications: Limited vascular access 04/14/18 09:30 Consult to Invasive Line Access Team [CONS] Routine Reason for Consult: limited vascular access Line Type: EPIV - Constitutional Vitals: Temp Pulse Resp BP Pulse Ox 98 F 77 15 97/67 98 04/15/18 06:29 04/15/18 06:29 04/15/18 06:29 04/15/18 06:29 04/15/18 06:29 Exam: Pt is not examined as she left before I have chance to see her. - Patient Status Disposition: Left Against Medical Advice Condition: Fair - Discharge Instructions Follow Up With: Ren Artis MD [Primary Care Provider] - - VTE Reasons for not Prescribing Prophylaxis: Treatment not Indicated - Low risk for VTE
== END 2018-04-15 07:25 | disposition left against medical advice (07) | DRG 420 ==
LOC: SUATTDRO → EMEROOARM 07:29 → 3ANU 07:29
PROVIDERS: ADMIT Internal Medicine; ATTEND Internal Medicine

== ENCOUNTER 2020-03-10 05:35 | Inpatient (IN) ==
[2020-03-10 11:27] LABS: Basophils # 0.1 K/mcL (0.0-0.2); Basophils % 0.3 %; Eosinophils # 1.3 K/mcL (0.0-0.6); Eosinophils % 7.1 %; Hematocrit 38.9 % (35.3-44.9); Immature Granulocytes % 1.1 % (0-4); Lymphocytes # 1.7 K/mcL (0.6-4.6); Lymphocytes % 8.9 %; Mean Corpuscular HGB Conc 33.4 g/dL (31.6-35.5); Mean Corpuscular Hemoglobin 30.5 pg (28.0-33.3); Mean Corpuscular Volume 91.3 fL (83.0-100.0); Mean Platelet Volume 9.2 fL (9.4-12.4); Monocytes # 0.9 K/mcL (0.0-1.3); Neutrophils # 14.5 K/mcL (1.6-8.9); Platelet Count 270 K/mcL (140-400); Red Blood Count 4.26 M/mcL (3.82-4.97); Red Cell Distribution Width 12.9 % (11.5-14.5); Segmented Neutrophils % 77.6 %; White Blood Count 18.7 K/mcL (4.3-11.1)
[2020-03-10] MEDS ORDERED: Naloxone 0.4 MG/ML INJ IVP PRN (11:27)
[2020-03-10] MEDS ORDERED: D5% in 0.45% NACL 1,000 ML IVC PRN (11:29)
[2020-03-10] MEDS ORDERED: D5% in 0.45% NACL w KCl 20 MEQ/1,000 ML MLS IVC PRN (11:29)
[2020-03-10] MEDS ORDERED: Insulin Regular, Human 100 UNIT/ML IV PRN (11:29)
[2020-03-10] MEDS ORDERED: *HR* Dextrose 50 % in Water (Vial) 50 ML VIAL IVP PRN (11:29)
[2020-03-10] MEDS ORDERED: 0.9 % Sodium Chloride 1,000 ML IVC SCH (11:30)
[2020-03-10] MEDS ORDERED: Insulin Human Regular 100 UNIT in 0.9 % Sodium Chloride 100 ML IVC SCH (11:30)
[2020-03-10 11:48] LABS: Alanine Aminotransferase 35 Units/L (7-52); Albumin 3.4 g/dL (3.5-5.7); Albumin/Globulin Ratio 1.4 (1.1-2.2); Alkaline Phosphatase 86 Units/L (34-104); Aspartate Amino Transferase 24 Units/L (13-39); BUN/Creatinine Ratio 18 (6-26); Bilirubin,Total 0.3 mg/dL (0.3-1.0); Blood Urea Nitrogen 16 mg/dL (6-20); Calcium 7.3 mg/dL (8.6-10.3); Carbon Dioxide 12 mEq/L (23-29); Chloride 116 mEq/L (98-107); Globulin 2.5 g/dL (2.4-3.5); Glucose 232 mg/dL (70-105); Osmolality,Calculated 305 (280-300); Potassium 3.5 mEq/L (3.5-5.1); Sodium 143 mEq/L (136-145); Total Protein 5.9 g/dL (6.4-8.9); eGFR For African Americans > 60 (> 60); eGFR For Non-African Americans > 60 (> 60)
[2020-03-10 12:08] LABS: Platelet Estimate Normal (Normal)
[2020-03-10 12:11] LABS: Phosphorous < 1.0 mg/dL (2.7-4.5)
[2020-03-10 12:13] LABS: Estimated Average Glucose 275 mg/dl; Hemoglobin A1C 11.2 %
[2020-03-10] MEDS ORDERED: Potassium Phosphate 44 MEQ in 0.9 % Sodium Chloride 250 ML IVPB ONE (12:18)
[2020-03-10] MEDS: Albuterol 2.5 MG/3 ML NEBULIZER IH SCH ×3 (13:46→20:16)
[2020-03-10] MEDS: Insulin Human Regular 100 UNIT in 0.9 % Sodium Chloride 100 ML IVC SCH (14:37)
[2020-03-10 15:30] LABS: BUN/Creatinine Ratio 19 (6-26); Blood Urea Nitrogen 15 mg/dL (6-20); Carbon Dioxide 17 mEq/L (23-29); Chloride 116 mEq/L (98-107); Glucose 239 mg/dL (70-105); Osmolality,Calculated 303 (280-300); Potassium 3.7 mEq/L (3.5-5.1); Sodium 142 mEq/L (136-145); eGFR For African Americans > 60 (> 60); eGFR For Non-African Americans > 60 (> 60)
[2020-03-10] MEDS: D5% in 0.45% NACL w KCl 20 MEQ/1,000 ML MLS IVC SCH ×2 (15:59→23:50)
[2020-03-10] MEDS ORDERED: Potassium Phosphate 44 MEQ in 0.9 % Sodium Chloride 250 ML IVPB PRN (16:10)
[2020-03-10] MEDS: *HR* Heparin 5,000 UNIT/ML VIAL SQ SCH ×2 (16:32→22:57)
[2020-03-10 18:07] LABS: BUN/Creatinine Ratio 21 (6-26); Blood Urea Nitrogen 15 mg/dL (6-20); Carbon Dioxide 20 mEq/L (23-29); Chloride 115 mEq/L (98-107); Glucose 169 mg/dL (70-105); Osmolality,Calculated 301 (280-300); Potassium 3.5 mEq/L (3.5-5.1); Sodium 143 mEq/L (136-145); eGFR For African Americans > 60 (> 60); eGFR For Non-African Americans > 60 (> 60)
[2020-03-10 22:10] LABS: VBG Ionized Calcium 0.99 mmol/L (1.15-1.35)
[2020-03-10 22:15] LABS: VBG HCO3 18 mEq/L (21-27); VBG PCO2 33 mmHg (41-51); VBG PH 7.34 pH Units (7.32-7.42); VBG PO2 170 mmHg (25-50)
[2020-03-10 22:23] LABS: BUN/Creatinine Ratio 22 (6-26); Blood Urea Nitrogen 13 mg/dL (6-20); Calcium 6.9 mg/dL (8.6-10.3); Carbon Dioxide 16 mEq/L (23-29); Chloride 114 mEq/L (98-107); Glucose 144 mg/dL (70-105); Magnesium 1.5 mg/dL (1.6-2.6); Osmolality,Calculated 295 (280-300); Phosphorous 1.7 mg/dL (2.7-4.5); Potassium 3.4 mEq/L (3.5-5.1); Sodium 141 mEq/L (136-145); eGFR For African Americans > 60 (> 60); eGFR For Non-African Americans > 60 (> 60)
[2020-03-10] MEDS: Calcium Gluconate 1gm/50mL 1 GM/50 ML BAG IVPB SCH ×2 (22:56→23:39)
[2020-03-10] MEDS: Cefepime HCl 1,000 MG in Water for inj. (sterile) 10 ML IVP SCH (22:57)
[2020-03-11] MEDS: Albuterol 2.5 MG/3 ML NEBULIZER IH SCH ×5 (00:05→15:06)
[2020-03-11 03:24] LABS: Basophils % 0.3 %; Eosinophils # 0.1 K/mcL (0.0-0.6); Eosinophils % 0.7 %; Hematocrit 34.7 % (35.3-44.9); Hemoglobin 12.2 g/dL (11.5-15.4); Immature Granulocytes % 0.2 % (0-4); Lymphocytes # 1.7 K/mcL (0.6-4.6); Lymphocytes % 13.9 %; Mean Corpuscular HGB Conc 35.2 g/dL (31.6-35.5); Mean Corpuscular Hemoglobin 31.6 pg (28.0-33.3); Mean Corpuscular Volume 89.9 fL (83.0-100.0); Mean Platelet Volume 9.2 fL (9.4-12.4); Monocytes # 0.6 K/mcL (0.0-1.3); Monocytes % 5.2 %; Neutrophils # 9.8 K/mcL (1.6-8.9); Platelet Count 205 K/mcL (140-400); Red Blood Count 3.86 M/mcL (3.82-4.97); Red Cell Distribution Width 12.8 % (11.5-14.5); Segmented Neutrophils % 79.7 %; White Blood Count 12.3 K/mcL (4.3-11.1)
[2020-03-11 03:44] LABS: BUN/Creatinine Ratio 21 (6-26); Blood Urea Nitrogen 12 mg/dL (6-20); Calcium 7.4 mg/dL (8.6-10.3); Carbon Dioxide 19 mEq/L (23-29); Chloride 116 mEq/L (98-107); Glucose 119 mg/dL (70-105); Osmolality,Calculated 295 (280-300); Potassium 3.2 mEq/L (3.5-5.1); Sodium 142 mEq/L (136-145); eGFR For African Americans > 60 (> 60); eGFR For Non-African Americans > 60 (> 60)
[2020-03-11 03:46] LABS: Alanine Aminotransferase 29 Units/L (7-52); Albumin 2.8 g/dL (3.5-5.7); Albumin/Globulin Ratio 1.3 (1.1-2.2); Alkaline Phosphatase 70 Units/L (34-104); Aspartate Amino Transferase 26 Units/L (13-39); BUN/Creatinine Ratio 21 (6-26); Bilirubin,Total 0.3 mg/dL (0.3-1.0); Blood Urea Nitrogen 12 mg/dL (6-20); Calcium 7.5 mg/dL (8.6-10.3); Carbon Dioxide 18 mEq/L (23-29); Chloride 116 mEq/L (98-107); Globulin 2.1 g/dL (2.4-3.5); Glucose 120 mg/dL (70-105); Magnesium 1.9 mg/dL (1.6-2.6); Osmolality,Calculated 293 (280-300); Potassium 3.2 mEq/L (3.5-5.1); Sodium 141 mEq/L (136-145); Total Protein 4.9 g/dL (6.4-8.9); eGFR For African Americans > 60 (> 60); eGFR For Non-African Americans > 60 (> 60)
[2020-03-11] MEDS: Insulin Human Regular 100 UNIT in 0.9 % Sodium Chloride 100 ML IVC SCH (04:04)
[2020-03-11 04:05] LABS: VBG HCO3 19 mEq/L (21-27); VBG Ionized Calcium 1.06 mmol/L (1.15-1.35); VBG PCO2 30 mmHg (41-51); VBG PO2 168 mmHg (25-50)
[2020-03-11] MEDS ORDERED: Calcium Gluconate 1gm/50mL 1 GM/50 ML BAG IVPB ONE (05:41)
[2020-03-11] MEDS: D5% in 0.45% NACL w KCl 20 MEQ/1,000 ML MLS IVC SCH (08:04)
[2020-03-11] MEDS: Cefepime HCl 1,000 MG in Water for inj. (sterile) 10 ML IVP SCH ×3 (08:04→23:44)
[2020-03-11] MEDS: *HR* Heparin 5,000 UNIT/ML VIAL SQ SCH ×2 (08:05→23:44)
[2020-03-11] MEDS ORDERED: Dextrose Gel 15 GM/37.5 ML TUBE PO PRN ×4 (08:10→16:39)
[2020-03-11] MEDS ORDERED: Insulin DETEMIR 100 UNIT/ML X5UNITS SUBQ SCH (08:10)
[2020-03-11] MEDS ORDERED: *HR* Dextrose 50 % in Water (Vial) 50 ML VIAL IVP PRN ×2 (08:10→16:39)
[2020-03-11] MEDS ORDERED: D5% in Water 1,000 ML IVC PRN ×2 (08:10→16:39)
[2020-03-11] MEDS ORDERED: Insulin LISPRO 300 UNITS/3 ML VIAL SUBQ SCH ×2 (12:00)
[2020-03-11 14:23] LABS: BUN/Creatinine Ratio 16 (6-26); Blood Urea Nitrogen 9 mg/dL (6-20); Calcium 7.7 mg/dL (8.6-10.3); Carbon Dioxide 19 mEq/L (23-29); Chloride 116 mEq/L (98-107); Glucose 192 mg/dL (70-105); Osmolality,Calculated 296 (280-300); Potassium 3.7 mEq/L (3.5-5.1); Sodium 141 mEq/L (136-145); eGFR For African Americans > 60 (> 60); eGFR For Non-African Americans > 60 (> 60)
[2020-03-11] MEDS ORDERED: Albuterol 2.5 MG/3 ML NEBULIZER IH SCH (20:00)
[2020-03-11] MEDS ORDERED: Albuterol 2.5 MG/3 ML NEBULIZER IH PRN (22:24)
[2020-03-11] MEDS: Insulin LISPRO 300 UNITS/3 ML VIAL SUBQ SCH ×2 (23:24→23:25)
[2020-03-12 01:52] LABS: Hematocrit 34.5 % (35.3-44.9); Hemoglobin 11.6 g/dL (11.5-15.4); Mean Corpuscular HGB Conc 33.6 g/dL (31.6-35.5); Mean Corpuscular Hemoglobin 30.2 pg (28.0-33.3); Mean Corpuscular Volume 89.8 fL (83.0-100.0); Mean Platelet Volume 9.4 fL (9.4-12.4); Platelet Count 176 K/mcL (140-400); Red Blood Count 3.84 M/mcL (3.82-4.97); Red Cell Distribution Width 13.2 % (11.5-14.5)
[2020-03-12 01:53] LABS: White Blood Count 6.1 K/mcL (4.3-11.1)
[2020-03-12 02:14] LABS: BUN/Creatinine Ratio 19 (6-26); Blood Urea Nitrogen 8 mg/dL (6-20); Calcium 7.8 mg/dL (8.6-10.3); Carbon Dioxide 20 mEq/L (23-29); Chloride 114 mEq/L (98-107); Glucose 183 mg/dL (70-105); Osmolality,Calculated 295 (280-300); Potassium 3.3 mEq/L (3.5-5.1); Sodium 141 mEq/L (136-145); eGFR For African Americans > 60 (> 60); eGFR For Non-African Americans > 60 (> 60)
[2020-03-12] MEDS: Insulin LISPRO 300 UNITS/3 ML VIAL SUBQ SCH ×2 (04:28→10:50)
[2020-03-12] MEDS ORDERED: Potassium Chloride Elixir 20 MEQ/15 ML UDC PO ONE (07:41)
[2020-03-12] MEDS ORDERED: Insulin DETEMIR 100 UNIT/ML X5UNITS SUBQ SCH (09:00)
[2020-03-12] MEDS: *HR* Heparin 5,000 UNIT/ML VIAL SQ SCH (10:48)
[2020-03-12] MEDS: Cefepime HCl 1,000 MG in Water for inj. (sterile) 10 ML IVP SCH (10:49)
[2020-03-12 10:51] VITALS: BP 113/77
== END 2020-03-12 13:48 | disposition home or self-care (01) | DRG 420 ==
LOC: ICNU → SUATTDRO 11:27 → 3ANU 03-11 18:03
PROVIDERS: ADMIT Family Medicine; ATTEND Internal Medicine

== ENCOUNTER 2020-07-18 22:02 | Inpatient (IN) ==
[2020-07-19] MEDS ORDERED: Naloxone 0.4 MG/ML INJ IVP PRN (01:59)
[2020-07-19] MEDS ORDERED: Melatonin 3 MG TABLET PO PRN (01:59)
[2020-07-19] MEDS ORDERED: Ondansetron 4 MG/2 ML VIAL IVP PRN (01:59)
[2020-07-19] MEDS ORDERED: *HR* Promethazine 25 MG/ML VIAL IM PRN (01:59)
[2020-07-19] MEDS ORDERED: *HR* Dextrose 50 % in Water (Vial) 50 ML VIAL IVP PRN (02:00)
[2020-07-19] MEDS ORDERED: Insulin Regular, Human 100 UNIT/ML IV PRN (02:00)
[2020-07-19] MEDS ORDERED: D5% in 0.45% NACL 1,000 ML IVC PRN (02:00)
[2020-07-19] MEDS: 0.45 % Sodium Chloride w/KCl 20 MEQ/1,000 ML MLS IVC PRN ×2 (02:48→03:57)
[2020-07-19] MEDS ORDERED: Perflutren Lipid Microsphere 1.3 ML in 0.9 % Sodium Chloride 8.7 ML IVP PRN (03:00)
[2020-07-19 03:55] LABS: VBG HCO3 4 mEq/L (21-27); VBG PCO2 20 mmHg (41-51); VBG PH 6.92 pH Units (7.32-7.42); VBG PO2 191 mmHg (25-50)
[2020-07-19 04:23] LABS: BUN/Creatinine Ratio 11 (6-26); Blood Urea Nitrogen 10 mg/dL (6-20); Calcium 8.7 mg/dL (8.6-10.3); Carbon Dioxide 5 mEq/L (23-29); Chloride 107 mEq/L (98-107); Glucose 401 mg/dL (70-105); Magnesium 1.8 mg/dL (1.6-2.6); Osmolality,Calculated 300 (280-300); Potassium 4.7 mEq/L (3.5-5.1); Sodium 137 mEq/L (136-145); eGFR For African Americans > 60 (> 60); eGFR For Non-African Americans > 60 (> 60)
[2020-07-19 04:48] LABS: Basophils # 0.1 K/mcL (0.0-0.2); Basophils % 0.5 %; Hemoglobin 13.3 g/dL (11.5-15.4); Immature Granulocytes % 0.8 % (0-4); Lymphocytes # 1.2 K/mcL (0.6-4.6); Lymphocytes % 5.1 %; Mean Corpuscular HGB Conc 31.7 g/dL (31.6-35.5); Mean Corpuscular Hemoglobin 30.7 pg (28.0-33.3); Mean Platelet Volume 9.7 fL (9.4-12.4); Monocytes # 0.7 K/mcL (0.0-1.3); Platelet Count 415 K/mcL (140-400); Red Blood Count 4.33 M/mcL (3.82-4.97); Red Cell Distribution Width 13.2 % (11.5-14.5); Segmented Neutrophils % 90.6 %; White Blood Count 23.9 K/mcL (4.3-11.1)
[2020-07-19 04:51] LABS: Neutrophils # 21.7 K/mcL (1.6-8.9)
[2020-07-19 04:53] LABS: Platelet Estimate Normal (Normal)
[2020-07-19] MEDS: D5% in 0.45% NACL w KCl 20 MEQ/1,000 ML MLS IVC PRN ×5 (05:59→23:30)
[2020-07-19 06:09] LABS: VBG HCO3 7 mEq/L (21-27); VBG PCO2 21 mmHg (41-51); VBG PH 7.11 pH Units (7.32-7.42); VBG PO2 150 mmHg (25-50)
[2020-07-19 06:35] LABS: BUN/Creatinine Ratio 11 (6-26); Blood Urea Nitrogen 9 mg/dL (6-20); Calcium 8.5 mg/dL (8.6-10.3); Carbon Dioxide 6 mEq/L (23-29); Chloride 110 mEq/L (98-107); Glucose 244 mg/dL (70-105); Osmolality,Calculated 295 (280-300); Potassium 3.8 mEq/L (3.5-5.1); Sodium 139 mEq/L (136-145); eGFR For African Americans > 60 (> 60); eGFR For Non-African Americans > 60 (> 60)
[2020-07-19] MEDS: ARIPiprazole 10 MG TABLET PO SCH (09:12)
[2020-07-19 11:24] LABS: BUN/Creatinine Ratio 10 (6-26); Blood Urea Nitrogen 7 mg/dL (6-20); Calcium 8.5 mg/dL (8.6-10.3); Carbon Dioxide 8 mEq/L (23-29); Chloride 114 mEq/L (98-107); Glucose 241 mg/dL (70-105); Osmolality,Calculated 290 (280-300); Sodium 137 mEq/L (136-145); eGFR For African Americans > 60 (> 60); eGFR For Non-African Americans > 60 (> 60)
[2020-07-19 11:56] LABS: ABG Base Excess -11 mEq/L (-2 to 3); ABG HCO3 13 mEq/L (21-27); ABG Oxygen Saturation 98 % (95-98); ABG PCO2 24 mmHg (35-45); ABG PH 7.35 pH Units (7.32-7.45); ABG PO2 98 mmHg (85-104); ABG TCO2 14 mEq/L (20-26)
[2020-07-19 14:04] LABS: BUN/Creatinine Ratio 10 (6-26); Blood Urea Nitrogen 6 mg/dL (6-20); Calcium 7.7 mg/dL (8.6-10.3); Carbon Dioxide 14 mEq/L (23-29); Chloride 115 mEq/L (98-107); Glucose 201 mg/dL (70-105); Osmolality,Calculated 283 (280-300); Potassium 3.3 mEq/L (3.5-5.1); Sodium 135 mEq/L (136-145); eGFR For African Americans > 60 (> 60); eGFR For Non-African Americans > 60 (> 60)
[2020-07-19 17:25] LABS: BUN/Creatinine Ratio 11 (6-26); Blood Urea Nitrogen 6 mg/dL (6-20); Calcium 7.9 mg/dL (8.6-10.3); Carbon Dioxide 16 mEq/L (23-29); Chloride 116 mEq/L (98-107); Glucose 100 mg/dL (70-105); Osmolality,Calculated 282 (280-300); Sodium 137 mEq/L (136-145); eGFR For African Americans > 60 (> 60); eGFR For Non-African Americans > 60 (> 60)
[2020-07-19 19:10] LABS: BUN/Creatinine Ratio 10 (6-26); Blood Urea Nitrogen 6 mg/dL (6-20); Calcium 7.8 mg/dL (8.6-10.3); Carbon Dioxide 14 mEq/L (23-29); Chloride 115 mEq/L (98-107); Glucose 93 mg/dL (70-105); Osmolality,Calculated 281 (280-300); Potassium 3.1 mEq/L (3.5-5.1); Sodium 137 mEq/L (136-145); eGFR For African Americans > 60 (> 60); eGFR For Non-African Americans > 60 (> 60)
[2020-07-19 20:45] LABS: VBG HCO3 15 mEq/L (21-27); VBG PCO2 30 mmHg (41-51); VBG PH 7.32 pH Units (7.32-7.42); VBG PO2 151 mmHg (25-50)
[2020-07-19 21:02] LABS: BUN/Creatinine Ratio 11 (6-26); Blood Urea Nitrogen 6 mg/dL (6-20); Calcium 7.9 mg/dL (8.6-10.3); Carbon Dioxide 14 mEq/L (23-29); Chloride 113 mEq/L (98-107); Glucose 138 mg/dL (70-105); Osmolality,Calculated 280 (280-300); Potassium 3.6 mEq/L (3.5-5.1); Sodium 135 mEq/L (136-145); eGFR For African Americans > 60 (> 60); eGFR For Non-African Americans > 60 (> 60)
[2020-07-20 00:37] LABS: VBG HCO3 17 mEq/L (21-27); VBG PCO2 35 mmHg (41-51); VBG PH 7.31 pH Units (7.32-7.42); VBG PO2 272 mmHg (25-50)
[2020-07-20 00:52] LABS: BUN/Creatinine Ratio 9 (6-26); Blood Urea Nitrogen 5 mg/dL (6-20); Calcium 7.4 mg/dL (8.6-10.3); Carbon Dioxide 15 mEq/L (23-29); Chloride 113 mEq/L (98-107); Glucose 185 mg/dL (70-105); Osmolality,Calculated 280 (280-300); Potassium 3.3 mEq/L (3.5-5.1); Sodium 134 mEq/L (136-145); eGFR For African Americans > 60 (> 60); eGFR For Non-African Americans > 60 (> 60)
[2020-07-20] MEDS: D5% in 0.45% NACL w KCl 20 MEQ/1,000 ML MLS IVC PRN (03:18)
[2020-07-20 03:48] LABS: VBG HCO3 18 mEq/L (21-27); VBG PCO2 35 mmHg (41-51); VBG PH 7.32 pH Units (7.32-7.42); VBG PO2 265 mmHg (25-50)
[2020-07-20 04:09] LABS: BUN/Creatinine Ratio 8 (6-26); Blood Urea Nitrogen 4 mg/dL (6-20); Calcium 7.6 mg/dL (8.6-10.3); Carbon Dioxide 16 mEq/L (23-29); Chloride 114 mEq/L (98-107); Glucose 139 mg/dL (70-105); Magnesium 1.3 mg/dL (1.6-2.6); Osmolality,Calculated 279 (280-300); Potassium 3.2 mEq/L (3.5-5.1); Sodium 135 mEq/L (136-145); eGFR For African Americans > 60 (> 60); eGFR For Non-African Americans > 60 (> 60)
[2020-07-20 04:47] LABS: Basophils % 0.5 %; Eosinophils # 0.1 K/mcL (0.0-0.6); Eosinophils % 1.3 %; Hematocrit 31.3 % (35.3-44.9); Hemoglobin 10.6 g/dL (11.5-15.4); Immature Granulocytes % 0.2 % (0-4); Lymphocytes # 2.4 K/mcL (0.6-4.6); Lymphocytes % 28.8 %; Mean Corpuscular HGB Conc 33.9 g/dL (31.6-35.5); Mean Corpuscular Hemoglobin 30.3 pg (28.0-33.3); Mean Corpuscular Volume 89.4 fL (83.0-100.0); Mean Platelet Volume 9.2 fL (9.4-12.4); Monocytes # 0.7 K/mcL (0.0-1.3); Monocytes % 8.1 %; Neutrophils # 5.1 K/mcL (1.6-8.9); Platelet Count 274 K/mcL (140-400); Red Cell Distribution Width 12.9 % (11.5-14.5); Segmented Neutrophils % 61.1 %; White Blood Count 8.3 K/mcL (4.3-11.1)
[2020-07-20] MEDS ORDERED: Insulin DETEMIR 100 UNIT/ML X5UNITS SUBQ ONE (05:09)
[2020-07-20] MEDS: ARIPiprazole 10 MG TABLET PO SCH (07:15)
[2020-07-20] MEDS ORDERED: Bismuth Subsalicylate 120 ML ORAL SUSPENSION PO PRN (09:51)
[2020-07-20] MEDS ORDERED: Fluconazole 150 MG TABLET PO ONE ×2 (10:10→23:37)
[2020-07-20] MEDS ORDERED: Famotidine 20 MG TABLET PO ONE (10:11)
[2020-07-20] MEDS: Insulin LISPRO 300 UNITS/3 ML VIAL SUBQ SCH ×2 (11:37→16:37)
[2020-07-20 16:26] LABS: BUN/Creatinine Ratio 6 (6-26); Blood Urea Nitrogen 3 mg/dL (6-20); Calcium 7.8 mg/dL (8.6-10.3); Carbon Dioxide 19 mEq/L (23-29); Chloride 111 mEq/L (98-107); Glucose 107 mg/dL (70-105); Osmolality,Calculated 277 (280-300); Potassium 3.9 mEq/L (3.5-5.1); Sodium 135 mEq/L (136-145); eGFR For African Americans > 60 (> 60); eGFR For Non-African Americans > 60 (> 60)
[2020-07-21] MEDS: Insulin LISPRO 300 UNITS/3 ML VIAL SUBQ SCH ×2 (00:12→05:59)
[2020-07-21] MEDS: Nystatin Cream 15 GM TUBE TP SCH ×2 (00:13→08:17)
[2020-07-21 06:27] LABS: Eosinophils # 0.1 K/mcL (0.0-0.6); Hematocrit 30.9 % (35.3-44.9); Hemoglobin 10.3 g/dL (11.5-15.4); Immature Granulocytes % 0.5 % (0-4); Lymphocytes # 1.6 K/mcL (0.6-4.6); Lymphocytes % 39.3 %; Mean Corpuscular HGB Conc 33.3 g/dL (31.6-35.5); Mean Corpuscular Hemoglobin 29.9 pg (28.0-33.3); Mean Corpuscular Volume 89.8 fL (83.0-100.0); Mean Platelet Volume 9.3 fL (9.4-12.4); Monocytes # 0.3 K/mcL (0.0-1.3); Monocytes % 8.5 %; Nucleated Red Blood Cells 0.5 /100 WBC (0); Platelet Count 226 K/mcL (140-400); Red Blood Count 3.44 M/mcL (3.82-4.97); Red Cell Distribution Width 13.1 % (11.5-14.5); Segmented Neutrophils % 48.7 %
[2020-07-21 06:36] LABS: BUN/Creatinine Ratio 8 (6-26); Blood Urea Nitrogen 4 mg/dL (6-20); Calcium 7.7 mg/dL (8.6-10.3); Carbon Dioxide 22 mEq/L (23-29); Chloride 109 mEq/L (98-107); Glucose 248 mg/dL (70-105); Magnesium 1.6 mg/dL (1.6-2.6); Osmolality,Calculated 285 (280-300); Potassium 3.7 mEq/L (3.5-5.1); Sodium 135 mEq/L (136-145); eGFR For African Americans > 60 (> 60); eGFR For Non-African Americans > 60 (> 60)
[2020-07-21 07:32] VITALS: BP 117/70
[2020-07-21] MEDS: ARIPiprazole 10 MG TABLET PO SCH (08:15)
[2020-07-21] MEDS ORDERED: PARoxetine 10 MG TABLET PO SCH (09:00)
== END 2020-07-21 11:08 | disposition home or self-care (01) | DRG 420 ==
LOC: 2NNU → SUATTDRO 07-19 01:34
PROVIDERS: ADMIT Student in an Organized Health Care Education/Training Program; ATTEND Student in an Organized Health Care Education/Training Program

== ENCOUNTER 2020-08-20 13:22 | Inpatient (IN) ==
[2020-08-20] MEDS ORDERED: 0.9 % Sodium Chloride 1,000 ML IV ONE (13:36)
[2020-08-20] MEDS ORDERED: Ondansetron 4 MG/2 ML VIAL IVP ONE (13:36)
[2020-08-20] MEDS ORDERED: Lidocaine -MPF 2% 5 ML VIAL ONE (13:45)
[2020-08-20] MEDS ORDERED: 0.9 % Sodium Chloride 1,000 ML ONE (13:59)
[2020-08-20] MEDS ORDERED: *HR* Dextrose 50 % in Water (Vial) 50 ML VIAL IVP PRN ×3 (14:09→17:26)
[2020-08-20 14:30] LABS: Prothrombin Time 11.8 Seconds (9.4-12.1)
[2020-08-20] MEDS: 0.9 % Sodium Chloride 1,000 ML IVC SCH ×2 (14:30→15:20)
[2020-08-20 14:32] LABS: Activated Partial Thrombo Time 25.6 Seconds (26.0-36.0)
[2020-08-20 14:54] LABS: Basophils # 0.1 K/mcL (0.0-0.2); Basophils % 0.6 %; Hemoglobin 12.5 g/dL (11.5-15.4); Immature Granulocytes % 0.7 % (0-4); Lymphocytes # 1.8 K/mcL (0.6-4.6); Lymphocytes % 8.8 %; Mean Corpuscular HGB Conc 29.1 g/dL (31.6-35.5); Mean Corpuscular Hemoglobin 29.1 pg (28.0-33.3); Mean Corpuscular Volume 100.2 fL (83.0-100.0); Monocytes # 0.7 K/mcL (0.0-1.3); Monocytes % 3.5 %; Neutrophils # 17.3 K/mcL (1.6-8.9); Platelet Count 373 K/mcL (140-400); Red Blood Count 4.29 M/mcL (3.82-4.97); Segmented Neutrophils % 86.4 %
[2020-08-20 14:59] LABS: Bacteria,Urine Few per hpf (None-Few); Bilirubin,Urine Negative (Negative); Blood,Urine Negative (Negative); Clarity,Urine Clear (Clear); Color,Urine Colorless (Yellow); Glucose,Urine (UA) >=1000 mg/dL (Normal); Hyaline Casts,Urine Few per lpf (None Seen); Ketones,Urine 100 mg/dL (Negative); Leukocyte Esterase,Urine Negative (Negative); Mucus,Urine Few per lpf (None-Few); Nitrite,Urine Negative (Negative); PH,Urine 5.5 pH Units (5.0-8.0); Protein,Urine Negative (Neg-Trace); RBC,Urine 0-3 per hpf (0-3); Specific Gravity,Urine 1.024 (1.010-1.025); Squamous Epithelial Cell,Urine Few per hpf (None-Few); Urobilinogen,Urine Normal (Normal)
[2020-08-20 15:00] LABS: Alanine Aminotransferase 64 Units/L (7-52); Albumin 4.1 g/dL (3.5-5.7); Albumin/Globulin Ratio 1.2 (1.1-2.2); Alkaline Phosphatase 127 Units/L (34-104); Aspartate Amino Transferase 46 Units/L (13-39); BUN/Creatinine Ratio 26 (6-26); Bilirubin,Total 0.4 mg/dL (0.3-1.0); Blood Urea Nitrogen 40 mg/dL (6-20); Calcium 9.7 mg/dL (8.6-10.3); Carbon Dioxide 7 mEq/L (23-29); Chloride 92 mEq/L (98-107); Creatine Kinase 39 Units/L (30-223); Ethanol < 10 mg/dL (Less than 10); Globulin 3.5 g/dL (2.4-3.5); Lipase 21 Units/L (11-82); Magnesium 2.5 mg/dL (1.6-2.6); Osmolality,Calculated 336 (280-300); Phosphorous 8.1 mg/dL (2.7-4.5); Potassium 5.5 mEq/L (3.5-5.1); Sodium 135 mEq/L (136-145); Thyroid Stimulating Hormone 1.239 mcIU/mL (0.340-5.600); Total Protein 7.6 g/dL (6.4-8.9); Troponin I 0.04 ng/mL (< 0.04); eGFR For African Americans 47 (> 60); eGFR For Non-African Americans 39 (> 60)
[2020-08-20 15:01] LABS: Glucose 932 mg/dL (70-105)
[2020-08-20 15:05] LABS: Estimated Average Glucose 258 mg/dl; Hemoglobin A1C 10.6 %
[2020-08-20 15:06] LABS: Amphetamine Screen,Urine Negative ng/mL (Cutoff=1000); Barbiturate Screen,Urine Negative ng/mL (Cutoff=200); Benzodiazepines Screen,Urine Negative ng/mL (Cutoff=200); Cannabinoid Screen,Urine Negative ng/mL (Cutoff = 50); Cocaine Screen,Urine Negative ng/mL (Cutoff= 300); Opiate Screen,Urine Negative ng/mL (Cutoff=300); Phencyclidine Screen,Urine Negative ng/mL (Cutoff=25)
[2020-08-20 15:19] LABS: ABG Base Excess -20 mEq/L (-2 to 3); ABG HCO3 7 mEq/L (21-27); ABG Oxygen Saturation 97 % (95-98); ABG PCO2 20 mmHg (35-45); ABG PH 7.14 pH Units (7.32-7.45); ABG PO2 116 mmHg (85-104); ABG TCO2 7 mEq/L (20-26)
[2020-08-20] MEDS ORDERED: Insulin Regular, Human 100 UNIT/ML IV PRN ×3 (15:58→17:26)
[2020-08-20] MEDS ORDERED: Acetaminophen 325 MG TABLET PO PRN (15:58)
[2020-08-20] MEDS ORDERED: Naloxone 0.4 MG/ML INJ IVP PRN (15:58)
[2020-08-20] MEDS ORDERED: Sodium Bicarbonate 150 MEQ in Water for inj. (sterile) 1,000 ML IVC ONE (16:00)
[2020-08-20] MEDS ORDERED: Ondansetron 4 MG/2 ML VIAL IVP PRN (17:17)
[2020-08-20] MEDS ORDERED: Prochlorperazine 10 MG/2 ML VIAL IVP PRN (17:17)
[2020-08-20] MEDS ORDERED: D5% in 0.45% NACL 1,000 ML IVC PRN (17:26)
[2020-08-20 17:29] LABS: Calcium 7.9 mg/dL (8.6-10.3); Potassium 4.1 mEq/L (3.5-5.1)
[2020-08-20] MEDS ORDERED: 0.9 % Sodium Chloride 1,000 ML IVC SCH (17:30)
[2020-08-20] MEDS: 0.45 % Sodium Chloride w/KCl 20 MEQ/1,000 ML MLS IVC SCH ×3 (19:07→21:29)
[2020-08-20 20:07] LABS: VBG HCO3 15 mEq/L (21-27); VBG PCO2 28 mmHg (41-51); VBG PH 7.35 pH Units (7.32-7.42); VBG PO2 122 mmHg (25-50)
[2020-08-20 20:25] LABS: BUN/Creatinine Ratio 28 (6-26); Blood Urea Nitrogen 31 mg/dL (6-20); Calcium 7.9 mg/dL (8.6-10.3); Carbon Dioxide 15 mEq/L (23-29); Chloride 111 mEq/L (98-107); Glucose 333 mg/dL (70-105); Osmolality,Calculated 316 (280-300); Phosphorous 1.2 mg/dL (2.7-4.5); Potassium 4.4 mEq/L (3.5-5.1); Sodium 143 mEq/L (136-145); eGFR For African Americans > 60 (> 60); eGFR For Non-African Americans 57 (> 60)
[2020-08-20] MEDS ORDERED: Potassium Phosphate 44 MEQ in 0.9 % Sodium Chloride 250 ML IVPB PRN (20:47)
[2020-08-20] MEDS: D5% in 0.45% NACL w KCl 20 MEQ/1,000 ML MLS IVC PRN (22:16)
[2020-08-21 00:22] LABS: VBG HCO3 21 mEq/L (21-27); VBG PCO2 35 mmHg (41-51); VBG PH 7.38 pH Units (7.32-7.42); VBG PO2 133 mmHg (25-50)
[2020-08-21 00:32] LABS: Magnesium 1.7 mg/dL (1.6-2.6); Phosphorous 1.3 mg/dL (2.7-4.5)
[2020-08-21 00:33] LABS: BUN/Creatinine Ratio 29 (6-26); Blood Urea Nitrogen 26 mg/dL (6-20); Calcium 7.4 mg/dL (8.6-10.3); Carbon Dioxide 20 mEq/L (23-29); Chloride 113 mEq/L (98-107); Glucose 196 mg/dL (70-105); Osmolality,Calculated 302 (280-300); Potassium 4.1 mEq/L (3.5-5.1); Sodium 141 mEq/L (136-145); eGFR For African Americans > 60 (> 60); eGFR For Non-African Americans > 60 (> 60)
[2020-08-21] MEDS: D5% in 0.45% NACL w KCl 20 MEQ/1,000 ML MLS IVC PRN (02:25)
[2020-08-21 04:24] LABS: VBG HCO3 21 mEq/L (21-27); VBG PCO2 36 mmHg (41-51); VBG PH 7.38 pH Units (7.32-7.42); VBG PO2 134 mmHg (25-50)
[2020-08-21 04:54] LABS: BUN/Creatinine Ratio 27 (6-26); Blood Urea Nitrogen 21 mg/dL (6-20); Calcium 7.3 mg/dL (8.6-10.3); Carbon Dioxide 20 mEq/L (23-29); Chloride 114 mEq/L (98-107); Glucose 156 mg/dL (70-105); Magnesium 1.6 mg/dL (1.6-2.6); Osmolality,Calculated 298 (280-300); Sodium 141 mEq/L (136-145); eGFR For African Americans > 60 (> 60); eGFR For Non-African Americans > 60 (> 60)
[2020-08-21 05:09] LABS: Basophils % 0.3 %; Eosinophils % 0.2 %; Hematocrit 31.1 % (35.3-44.9); Hemoglobin 10.1 g/dL (11.5-15.4); Immature Granulocytes % 0.5 % (0-4); Lymphocytes # 1.8 K/mcL (0.6-4.6); Lymphocytes % 14.8 %; Mean Corpuscular HGB Conc 32.5 g/dL (31.6-35.5); Mean Corpuscular Hemoglobin 28.7 pg (28.0-33.3); Mean Corpuscular Volume 88.4 fL (83.0-100.0); Mean Platelet Volume 8.7 fL (9.4-12.4); Monocytes # 1.1 K/mcL (0.0-1.3); Monocytes % 8.7 %; Neutrophils # 9.4 K/mcL (1.6-8.9); Platelet Count 252 K/mcL (140-400); Red Blood Count 3.52 M/mcL (3.82-4.97); Red Cell Distribution Width 13.2 % (11.5-14.5); Segmented Neutrophils % 75.5 %; White Blood Count 12.4 K/mcL (4.3-11.1)
[2020-08-21] MEDS ORDERED: D5% in Water 1,000 ML IVC PRN ×2 (05:56→08:38)
[2020-08-21] MEDS ORDERED: Insulin DETEMIR 100 UNIT/ML X5UNITS SUBQ ONE (05:56)
[2020-08-21] MEDS ORDERED: Dextrose Gel 15 GM/37.5 ML TUBE PO PRN ×4 (05:56→08:38)
[2020-08-21] MEDS ORDERED: *HR* Enoxaparin 30 MG/0.3 ML SYRINGE SQ SCH (07:00)
[2020-08-21] MEDS ORDERED: Insulin LISPRO 300 UNITS/3 ML VIAL SUBQ SCH (07:30)
[2020-08-21 08:18] LABS: VBG HCO3 22 mEq/L (21-27); VBG PCO2 36 mmHg (41-51); VBG PO2 171 mmHg (25-50)
[2020-08-21] MEDS ORDERED: Ringers Solution, Lactated 1,000 ML IVC SCH ×2 (08:30→08:38)
[2020-08-21 08:34] LABS: BUN/Creatinine Ratio 27 (6-26); Blood Urea Nitrogen 18 mg/dL (6-20); Calcium 7.2 mg/dL (8.6-10.3); Carbon Dioxide 22 mEq/L (23-29); Chloride 113 mEq/L (98-107); Glucose 65 mg/dL (70-105); Osmolality,Calculated 290 (280-300); Potassium 3.4 mEq/L (3.5-5.1); Sodium 140 mEq/L (136-145); eGFR For African Americans > 60 (> 60); eGFR For Non-African Americans > 60 (> 60)
[2020-08-21 08:35] LABS: Magnesium 1.6 mg/dL (1.6-2.6); Phosphorous 1.1 mg/dL (2.7-4.5)
[2020-08-21] MEDS ORDERED: Naloxone 0.4 MG/ML INJ IVP PRN (08:38)
[2020-08-21] MEDS ORDERED: Acetaminophen 325 MG TABLET PO PRN (08:38)
[2020-08-21] MEDS ORDERED: *HR* Dextrose 50 % in Water (Vial) 50 ML VIAL IVP PRN ×2 (08:38→09:48)
[2020-08-21] MEDS ORDERED: Ondansetron 4 MG/2 ML VIAL IVP PRN (08:38)
[2020-08-21] MEDS: Insulin LISPRO 300 UNITS/3 ML VIAL SUBQ SCH ×3 (11:28→20:46)
[2020-08-21] MEDS: 0.45 % Sodium Chloride w/KCl 20 MEQ/1,000 ML MLS IVC SCH ×4 (13:39→13:42)
[2020-08-21] MEDS: Ringers Solution, Lactated 1,000 ML IVC SCH ×2 (13:44→14:16)
[2020-08-21] MEDS: 0.9 % Sodium Chloride 1,000 ML IVC SCH ×4 (13:45→19:48)
[2020-08-21] MEDS: Insulin DETEMIR 100 UNIT/ML X5UNITS SUBQ SCH (20:47)
[2020-08-22] MEDS ORDERED: *HR* Enoxaparin 40 MG/0.4 ML SYRINGE SQ SCH ×2 (06:00)
[2020-08-22 06:02] LABS: VBG Ionized Calcium 1.17 mmol/L (1.15-1.35)
[2020-08-22 06:03] LABS: Basophils % 0.5 %; Eosinophils # 0.1 K/mcL (0.0-0.6); Eosinophils % 0.9 %; Hematocrit 31.6 % (35.3-44.9); Hemoglobin 10.5 g/dL (11.5-15.4); Immature Granulocytes % 0.4 % (0-4); Lymphocytes # 1.4 K/mcL (0.6-4.6); Lymphocytes % 25.7 %; Mean Corpuscular HGB Conc 33.2 g/dL (31.6-35.5); Mean Corpuscular Hemoglobin 29.2 pg (28.0-33.3); Mean Corpuscular Volume 87.8 fL (83.0-100.0); Mean Platelet Volume 8.8 fL (9.4-12.4); Monocytes # 0.5 K/mcL (0.0-1.3); Monocytes % 8.7 %; Neutrophils # 3.5 K/mcL (1.6-8.9); Platelet Count 188 K/mcL (140-400); Red Cell Distribution Width 13.2 % (11.5-14.5); Segmented Neutrophils % 63.8 %
[2020-08-22 06:19] LABS: White Blood Count 5.5 K/mcL (4.3-11.1)
[2020-08-22 06:25] LABS: Alanine Aminotransferase 36 Units/L (7-52); Albumin 2.9 g/dL (3.5-5.7); Albumin/Globulin Ratio 1.2 (1.1-2.2); Alkaline Phosphatase 70 Units/L (34-104); Aspartate Amino Transferase 48 Units/L (13-39); BUN/Creatinine Ratio 15 (6-26); Bilirubin,Total 0.5 mg/dL (0.3-1.0); Blood Urea Nitrogen 8 mg/dL (6-20); Calcium 8.1 mg/dL (8.6-10.3); Carbon Dioxide 25 mEq/L (23-29); Chloride 109 mEq/L (98-107); Globulin 2.4 g/dL (2.4-3.5); Glucose 67 mg/dL (70-105); Magnesium 1.8 mg/dL (1.6-2.6); Osmolality,Calculated 287 (280-300); Phosphorous 2.1 mg/dL (2.7-4.5); Potassium 3.4 mEq/L (3.5-5.1); Sodium 140 mEq/L (136-145); Total Protein 5.3 g/dL (6.4-8.9); eGFR For African Americans > 60 (> 60); eGFR For Non-African Americans > 60 (> 60)
[2020-08-22 07:48] VITALS: BP 113/65
[2020-08-22] MEDS: Insulin LISPRO 300 UNITS/3 ML VIAL SUBQ SCH ×2 (07:51→13:11)
[2020-08-22] MEDS ORDERED: Potassium Phosphate 44 MEQ in 0.9 % Sodium Chloride 250 ML IVPB ONE (08:36)
[2020-08-22] MEDS: Insulin DETEMIR 100 UNIT/ML X5UNITS SUBQ SCH ×2 (09:51→10:11)
== END 2020-08-22 17:29 | disposition home or self-care (01) | DRG 420 ==
LOC: ICNU 13:22 → EMEROOARM 13:22 → SUATTDRO 16:08 → ICNU 17:16 → 3ANU 08-21 14:15
PROVIDERS: ADMIT Internal Medicine; ATTEND Student in an Organized Health Care Education/Training Program

== ENCOUNTER 2021-07-21 14:51 | Observation (INO) ==
[2021-07-21 15:37] LABS: Bilirubin,Urine Negative (Negative); Blood,Urine Negative (Negative); Clarity,Urine Clear (Clear); Color,Urine Light-Yellow (Yellow); Glucose,Urine (UA) >=1000 mg/dL (Normal); Ketones,Urine 60 mg/dL (Negative); Leukocyte Esterase,Urine Negative (Negative); Mucus,Urine Few per lpf (None-Few); Nitrite,Urine Negative (Negative); Protein,Urine Trace mg/dL (Neg-Trace); RBC,Urine 0-3 per hpf (0-3); Specific Gravity,Urine > 1.030 (1.010-1.025); Squamous Epithelial Cell,Urine Few per hpf (None-Few); Transitional Epi Cells,Urine Few per hpf (None-Few); Urobilinogen,Urine Normal (Normal); WBC,Urine 0-3 per hpf (0-3)
[2021-07-21 15:55] LABS: Amphetamine Screen,Urine Positive ng/mL (Cutoff=1000); Barbiturate Screen,Urine Negative ng/mL (Cutoff=200); Benzodiazepines Screen,Urine Negative ng/mL (Cutoff=200); Cannabinoid Screen,Urine Negative ng/mL (Cutoff = 50); Cocaine Screen,Urine Negative ng/mL (Cutoff= 300); Opiate Screen,Urine Negative ng/mL (Cutoff=300); Phencyclidine Screen,Urine Negative ng/mL (Cutoff=25)
[2021-07-21] MEDS ORDERED: Potassium Effervescent 25 MEQ TABLET.EFF PO ONE (17:24)
[2021-07-21] MEDS ORDERED: Naloxone 0.4 MG/ML INJ IVP PRN (18:19)
[2021-07-21] MEDS ORDERED: Ondansetron ODT 4 MG TAB.RAPDIS SL PRN (18:19)
[2021-07-21] MEDS ORDERED: Dextrose 4 GM Chewable Tablets PO PRN ×2 (18:22)
[2021-07-21] MEDS ORDERED: *HR* Dextrose 50 % in Water (Syg) 50 ML SYRINGE IVP PRN (18:22)
[2021-07-21] MEDS ORDERED: D5% in Water 1,000 ML IVC PRN (18:22)
[2021-07-21] MEDS ORDERED: Haloperidol Lactate 5 MG/ML VIAL IVP PRN (18:30)
[2021-07-21] MEDS: Insulin LISPRO 300 UNITS/3 ML VIAL SUBQ SCH ×2 (21:03→21:06)
[2021-07-22 05:55] LABS: Basophils # 0.1 K/mcL (0.0-0.2); Basophils % 0.9 %; Eosinophils # 0.3 K/mcL (0.0-0.6); Eosinophils % 4.6 %; Immature Granulocytes % 0.2 % (0-4); Lymphocytes # 1.7 K/mcL (0.6-4.6); Lymphocytes % 30.8 %; Mean Corpuscular HGB Conc 34.2 g/dL (31.6-35.5); Mean Corpuscular Hemoglobin 30.9 pg (28.0-33.3); Mean Corpuscular Volume 90.3 fL (83.0-100.0); Mean Platelet Volume 9.4 fL (9.4-12.4); Monocytes # 0.4 K/mcL (0.0-1.3); Monocytes % 6.6 %; Neutrophils # 3.1 K/mcL (1.6-8.9); Platelet Count 282 K/mcL (140-400); Red Blood Count 4.21 M/mcL (3.82-4.97); Red Cell Distribution Width 13.2 % (11.5-14.5); Segmented Neutrophils % 56.9 %; White Blood Count 5.5 K/mcL (4.3-11.1)
[2021-07-22 06:00] LABS: Acetaminophen < 10 mcg/mL (10-20); BUN/Creatinine Ratio 15 (6-26); Blood Urea Nitrogen 11 mg/dL (6-20); Calcium 8.6 mg/dL (8.6-10.3); Carbon Dioxide 22 mEq/L (23-29); Chloride 105 mEq/L (98-107); Chol/HDL Ratio 2.8 (0-4.9); Cholesterol 161 mg/dL (< 200); Ethanol < 10 mg/dL (Less than 10); Glucose 337 mg/dL (70-105); HDL Cholesterol 58 mg/dL (40-59); LDL Cholesterol,Calculated 81 mg/dL (< 100); Osmolality,Calculated 293 (280-300); Potassium 4.4 mEq/L (3.5-5.1); Salicylate < 2.5 mg/dL (15.0-30.0); Sodium 135 mEq/L (136-145); Triglycerides 108 mg/dL (< 150); eGFR For African Americans > 60 (> 60); eGFR For Non-African Americans > 60 (> 60)
[2021-07-22 07:52] LABS: Estimated Average Glucose 217 mg/dl; Hemoglobin A1C 9.2 %
[2021-07-22] MEDS: Insulin LISPRO 300 UNITS/3 ML VIAL SUBQ SCH ×5 (08:12→19:58)
[2021-07-22] MEDS ORDERED: Acetaminophen 325 MG TABLET PO ONE (10:04)
[2021-07-22] MEDS ORDERED: hydrOXYzine pamoate 25 MG CAPSULE PO PRN (12:20)
[2021-07-22] MEDS ORDERED: ARIPiprazole 5 MG TABLET PO SCH (21:00)
[2021-07-23 01:05] LABS: Hematocrit 38.3 % (35.3-44.9); Hemoglobin 12.8 g/dL (11.5-15.4); Mean Corpuscular HGB Conc 33.4 g/dL (31.6-35.5); Mean Corpuscular Hemoglobin 30.3 pg (28.0-33.3); Mean Corpuscular Volume 90.8 fL (83.0-100.0); Mean Platelet Volume 9.4 fL (9.4-12.4); Platelet Count 270 K/mcL (140-400); Red Blood Count 4.22 M/mcL (3.82-4.97); Red Cell Distribution Width 13.2 % (11.5-14.5); White Blood Count 6.7 K/mcL (4.3-11.1)
[2021-07-23 01:25] LABS: BUN/Creatinine Ratio 24 (6-26); Blood Urea Nitrogen 21 mg/dL (6-20); Calcium 8.7 mg/dL (8.6-10.3); Carbon Dioxide 23 mEq/L (23-29); Chloride 104 mEq/L (98-107); Glucose 415 mg/dL (70-105); Osmolality,Calculated 301 (280-300); Potassium 4.4 mEq/L (3.5-5.1); Sodium 135 mEq/L (136-145); eGFR For African Americans > 60 (> 60); eGFR For Non-African Americans > 60 (> 60)
[2021-07-23 03:45] VITALS: PULSE 82; TEMP 97.4
[2021-07-23 07:44] VITALS: BP 101/69
[2021-07-23] MEDS: Insulin LISPRO 300 UNITS/3 ML VIAL SUBQ SCH (07:44)
[2021-07-23 07:45] VITALS: O2SAT 97
[2021-07-23] MEDS ORDERED: Insulin Human Regular 10 UNIT in 0.9 % Sodium Chloride 10 ML IV ONE (08:25)
[2021-07-23] MEDS ORDERED: 0.9 % Sodium Chloride 500 ML IVC ONE (08:25)
[2021-07-23] MEDS: Insulin DETEMIR 100 UNIT/ML X5UNITS SUBQ SCH ×2 (09:03→09:04)
[2021-07-23] MEDS ORDERED: *HR* LORazepam 2 MG/ML VIAL IVP ONE ×2 (10:08→10:11)
== END 2021-07-23 11:38 | disposition short-term general hospital (02) ==
LOC: EMEROOARM 14:51 → 3BNU 14:51 → SUATTDRO 19:21 → 3BNU 20:35
PROVIDERS: ADMIT Student in an Organized Health Care Education/Training Program; ATTEND Family Medicine

== ENCOUNTER 2021-09-13 06:50 | Inpatient (IN) ==
[2021-09-13] MEDS ORDERED: Ondansetron 4 MG/2 ML VIAL IVP ONE (07:13)
[2021-09-13] MEDS ORDERED: 0.9 % Sodium Chloride 1,000 ML ONE ×2 (07:20→09:44)
[2021-09-13 08:30] LABS: Influenza A PCR Negative (Negative); Influenza B PCR Negative (Negative); Resp. Syncytial Virus PCR Negative (Negative)
[2021-09-13 08:39] LABS: Red Cell Distribution Width 13.2 % (11.5-14.5)
[2021-09-13 08:40] LABS: SARS-CoV-2 by PCR (In House) Negative (Negative)
[2021-09-13 08:41] LABS: Mean Corpuscular HGB Conc 29.8 g/dL (31.6-35.5); Mean Corpuscular Hemoglobin 30.5 pg (28.0-33.3); Mean Corpuscular Volume 102.4 fL (83.0-100.0); Mean Platelet Volume 10.1 fL (9.4-12.4); Platelet Count 396 K/mcL (140-400); Red Blood Count 4.59 M/mcL (3.82-4.97)
[2021-09-13 08:48] LABS: White Blood Count 31.1 K/mcL (4.3-11.1)
[2021-09-13 09:05] LABS: Eosinophils # 0.6 K/mcL (0.0-0.6); Lymphocytes # 4.4 K/mcL (0.6-4.6); Monocytes # 0.6 K/mcL (0.0-1.3); Neutrophils # 25.2 K/mcL (1.6-8.9)
[2021-09-13 09:06] LABS: Platelet Estimate Normal (Normal); Toxic Granulation Present (Not Present)
[2021-09-13] MEDS ORDERED: 0.9 % Sodium Chloride 1,000 ML IV ONE ×2 (09:08→09:24)
[2021-09-13] MEDS ORDERED: cefTRIAXone 1,000 MG in 0.9 % Sodium Chloride 10 ML IVP ONE (09:09)
[2021-09-13 09:20] LABS: Calcium 9.2 mg/dL (8.6-10.3); Potassium 4.7 mEq/L (3.5-5.1); Troponin I 0.03 ng/mL (< 0.04)
[2021-09-13] MEDS ORDERED: Metoclopramide 10 MG/2 ML VIAL IVP ONE (09:28)
[2021-09-13] MEDS ORDERED: *HR* LORazepam 2 MG/ML VIAL IVP ONE (10:28)
[2021-09-13 10:44] LABS: Estimated Average Glucose 212 mg/dl
[2021-09-13 11:01] LABS: Bilirubin,Urine Negative (Negative); Blood,Urine Negative (Negative); Clarity,Urine Clear (Clear); Color,Urine Colorless (Yellow); Glucose,Urine (UA) >=1000 mg/dL (Normal); Ketones,Urine 100 mg/dL (Negative); Leukocyte Esterase,Urine Negative (Negative); Mucus,Urine Few per lpf (None-Few); Nitrite,Urine Negative (Negative); PH,Urine 5.5 pH Units (5.0-8.0); Protein,Urine Trace mg/dL (Neg-Trace); RBC,Urine 0-3 per hpf (0-3); Specific Gravity,Urine 1.025 (1.010-1.025); Squamous Epithelial Cell,Urine Few per hpf (None-Few); Urobilinogen,Urine Normal (Normal)
[2021-09-13] MEDS ORDERED: Naloxone 0.4 MG/ML INJ IVP PRN (11:52)
[2021-09-13] MEDS ORDERED: Acetaminophen 325 MG TABLET PO PRN (11:52)
[2021-09-13] MEDS ORDERED: Ondansetron 4 MG/2 ML VIAL IVP PRN (11:52)
[2021-09-13] MEDS ORDERED: *HR* Dextrose 50 % in Water (Syg) 50 ML SYRINGE IVP PRN ×2 (11:52→16:09)
[2021-09-13] MEDS ORDERED: Insulin Regular, Human 100 UNIT/ML IV PRN ×2 (11:52→16:09)
[2021-09-13] MEDS: Pantoprazole 40 MG VIAL IVP SCH (12:19)
[2021-09-13] MEDS ORDERED: 0.45 % Sodium Chloride w/KCl 20 MEQ/1,000 ML MLS IVC SCH (12:45)
[2021-09-13] MEDS ORDERED: *HR* LORazepam 2 MG/ML VIAL IVP PRN (12:47)
[2021-09-13 14:02] LABS: VBG HCO3 8 mEq/L (21-27); VBG PCO2 23 mmHg (41-51); VBG PH 7.14 pH Units (7.32-7.42); VBG PO2 221 mmHg (25-50)
[2021-09-13 14:51] LABS: Calcium 7.9 mg/dL (8.6-10.3); Potassium 4.6 mEq/L (3.5-5.1)
[2021-09-13] MEDS: D5% in 0.45% NACL 1,000 ML IVC PRN ×2 (17:32→21:21)
[2021-09-13] MEDS: *HR* Heparin 5,000 UNIT/ML VIAL SQ SCH (18:28)
[2021-09-13] MEDS: Pregabalin 50 MG CAPSULE PO SCH (21:45)
[2021-09-14] MEDS: D5% in 0.45% NACL 1,000 ML IVC PRN (01:30)
[2021-09-14 02:30] LABS: VBG HCO3 19 mEq/L (21-27); VBG PCO2 34 mmHg (41-51); VBG PH 7.37 pH Units (7.32-7.42); VBG PO2 157 mmHg (25-50)
[2021-09-14 02:57] LABS: Alanine Aminotransferase 32 Units/L (7-52); Albumin 3.1 g/dL (3.5-5.7); Albumin/Globulin Ratio 1.4 (1.1-2.2); Alkaline Phosphatase 76 Units/L (34-104); Aspartate Amino Transferase 44 Units/L (13-39); BUN/Creatinine Ratio 14 (6-26); Bilirubin,Total 0.3 mg/dL (0.3-1.0); Blood Urea Nitrogen 12 mg/dL (6-20); Calcium 7.2 mg/dL (8.6-10.3); Carbon Dioxide 20 mEq/L (23-29); Chloride 112 mEq/L (98-107); Globulin 2.2 g/dL (2.4-3.5); Glucose 116 mg/dL (70-105); Magnesium 1.6 mg/dL (1.6-2.6); Osmolality,Calculated 283 (280-300); Phosphorous 1.4 mg/dL (2.7-4.5); Potassium 3.4 mEq/L (3.5-5.1); Sodium 136 mEq/L (136-145); Total Protein 5.3 g/dL (6.4-8.9); eGFR For African Americans > 60 (> 60); eGFR For Non-African Americans > 60 (> 60)
[2021-09-14] MEDS ORDERED: Dextrose Gel 15 GM/37.5 ML TUBE PO PRN ×4 (03:30→15:01)
[2021-09-14] MEDS ORDERED: D5% in Water 1,000 ML IVC PRN ×2 (03:30→15:01)
[2021-09-14] MEDS ORDERED: Insulin DETEMIR 100 UNIT/ML X5UNITS SUBQ SCH ×3 (03:45→21:00)
[2021-09-14] MEDS: *HR* Heparin 5,000 UNIT/ML VIAL SQ SCH ×2 (06:20→16:54)
[2021-09-14] MEDS ORDERED: Levothyroxine 25 MCG TABLET PO SCH (06:30)
[2021-09-14] MEDS: Pregabalin 50 MG CAPSULE PO SCH ×2 (08:31→20:36)
[2021-09-14] MEDS: Insulin LISPRO 300 UNITS/3 ML VIAL SUBQ SCH ×4 (08:31→16:56)
[2021-09-14] MEDS: Pantoprazole 40 MG VIAL IVP SCH (08:31)
[2021-09-14] MEDS ORDERED: Ondansetron ODT 4 MG TAB.RAPDIS PO PRN ×2 (12:02→15:01)
[2021-09-14] MEDS ORDERED: *HR* LORazepam 1 MG TABLET PO PRN ×2 (12:07→15:01)
[2021-09-14] MEDS ORDERED: Ondansetron 4 MG/2 ML VIAL IVP PRN (15:01)
[2021-09-14] MEDS ORDERED: Acetaminophen 325 MG TABLET PO PRN (15:01)
[2021-09-14] MEDS ORDERED: Naloxone 0.4 MG/ML INJ IVP PRN (15:01)
[2021-09-14] MEDS ORDERED: *HR* Dextrose 50 % in Water (Syg) 50 ML SYRINGE IVP PRN (15:01)
[2021-09-14 15:20] LABS: BUN/Creatinine Ratio 11 (6-26); Blood Urea Nitrogen 9 mg/dL (6-20); Calcium 7.5 mg/dL (8.6-10.3); Carbon Dioxide 18 mEq/L (23-29); Chloride 111 mEq/L (98-107); Glucose 232 mg/dL (70-105); Osmolality,Calculated 288 (280-300); Potassium 4.1 mEq/L (3.5-5.1); Sodium 136 mEq/L (136-145); eGFR For African Americans > 60 (> 60); eGFR For Non-African Americans > 60 (> 60)
[2021-09-14 16:03] LABS: Basophils # 0.1 K/mcL (0.0-0.2); Basophils % 0.6 %; Eosinophils # 0.1 K/mcL (0.0-0.6); Eosinophils % 0.9 %; Hematocrit 34.6 % (35.3-44.9); Hemoglobin 11.7 g/dL (11.5-15.4); Immature Granulocytes % 0.4 % (0-4); Lymphocytes # 2.5 K/mcL (0.6-4.6); Lymphocytes % 23.5 %; Mean Corpuscular HGB Conc 33.8 g/dL (31.6-35.5); Mean Corpuscular Hemoglobin 30.5 pg (28.0-33.3); Mean Corpuscular Volume 90.1 fL (83.0-100.0); Mean Platelet Volume 9.4 fL (9.4-12.4); Monocytes # 0.5 K/mcL (0.0-1.3); Neutrophils # 7.4 K/mcL (1.6-8.9); Platelet Count 245 K/mcL (140-400); Red Blood Count 3.84 M/mcL (3.82-4.97); Red Cell Distribution Width 13.2 % (11.5-14.5); Segmented Neutrophils % 69.6 %; White Blood Count 10.6 K/mcL (4.3-11.1)
[2021-09-14] MEDS ORDERED: Insulin LISPRO 300 UNITS/3 ML VIAL SUBQ SCH (16:30)
[2021-09-15] MEDS: *HR* Heparin 5,000 UNIT/ML VIAL SQ SCH (05:55)
[2021-09-15] MEDS ORDERED: Levothyroxine 25 MCG TABLET PO SCH (06:30)
[2021-09-15 07:19] VITALS: BP 104/71; PULSE 80; TEMP 98.1; O2SAT 95
[2021-09-15] MEDS: Pregabalin 50 MG CAPSULE PO SCH (08:21)
[2021-09-15] MEDS: Insulin LISPRO 300 UNITS/3 ML VIAL SUBQ SCH ×2 (08:28)
== END 2021-09-15 12:10 | disposition home or self-care (01) | DRG 420 ==
LOC: EMEROOARM 06:50 → ICNU 06:50 → 3NENU 09-14 15:26
PROVIDERS: ADMIT Family Medicine; ATTEND Family Medicine

== ENCOUNTER 2021-12-27 15:39 | Inpatient (IN) ==
[2021-12-27] MEDS: 0.9 % Sodium Chloride 1,000 ML IVC SCH ×2 (16:56→17:45)
[2021-12-27 17:15] LABS: Basophils % 0.8 %; Eosinophils % 0.1 %; Monocytes % 6.7 %
[2021-12-27 17:17] LABS: Basophils # 0.2 K/mcL (0.0-0.2); Hematocrit 46.3 % (35.3-44.9); Immature Granulocytes % 1.4 % (0-4); Lymphocytes # 2.2 K/mcL (0.6-4.6); Lymphocytes % 8.8 %; Mean Corpuscular HGB Conc 28.1 g/dL (31.6-35.5); Mean Corpuscular Volume 106.9 fL (83.0-100.0); Monocytes # 1.6 K/mcL (0.0-1.3); Platelet Count 442 K/mcL (140-400); Red Blood Count 4.33 M/mcL (3.82-4.97); Red Cell Distribution Width 13.7 % (11.5-14.5); Segmented Neutrophils % 82.2 %; White Blood Count 24.5 K/mcL (4.3-11.1)
[2021-12-27 17:19] LABS: VBG HCO3 6 mEq/L (21-27); VBG PCO2 24 mmHg (41-51); VBG PH 6.99 pH Units (7.32-7.42); VBG PO2 116 mmHg (25-50)
[2021-12-27 17:22] LABS: Neutrophils # 20.1 K/mcL (1.6-8.9)
[2021-12-27] MEDS ORDERED: cefTRIAXone 1,000 MG in 0.9 % Sodium Chloride 10 ML IVP ONE (17:23)
[2021-12-27 17:35] LABS: VBG HCO3 21 mEq/L (21-27); VBG PCO2 39 mmHg (41-51); VBG PH 7.33 pH Units (7.32-7.42); VBG PO2 71 mmHg (25-50)
[2021-12-27 17:43] LABS: Hypochromasia Present (Not Present); Platelet Estimate Normal (Normal)
[2021-12-27 17:46] LABS: Estimated Average Glucose 220 mg/dl; Hemoglobin A1C 9.3 %
[2021-12-27 17:47] LABS: Influenza A PCR Negative (Negative); Influenza B PCR Negative (Negative); Resp. Syncytial Virus PCR Negative (Negative)
[2021-12-27 18:11] LABS: Alanine Aminotransferase 35 Units/L (7-52); Albumin 2.3 g/dL (3.5-5.7); Albumin/Globulin Ratio 1.4 (1.1-2.2); Alkaline Phosphatase 72 Units/L (34-104); Aspartate Amino Transferase 35 Units/L (13-39); BUN/Creatinine Ratio 25 (6-26); Bilirubin,Total 0.2 mg/dL (0.3-1.0); Blood Urea Nitrogen 21 mg/dL (6-20); Calcium 5.2 mg/dL (8.6-10.3); Carbon Dioxide 4 mEq/L (23-29); Chloride 119 mEq/L (98-107); Globulin 1.7 g/dL (2.4-3.5); Glucose 604 mg/dL (70-105); Magnesium 1.4 mg/dL (1.6-2.6); Osmolality,Calculated 327 (280-300); Potassium 3.9 mEq/L (3.5-5.1); Sodium 143 mEq/L (136-145)
[2021-12-27] MEDS ORDERED: 0.9 % Sodium Chloride 1,000 ML IV ONE ×2 (18:42→21:34)
[2021-12-27 18:59] LABS: SARS-CoV-2 by PCR (In House) Negative (Negative)
[2021-12-27] MEDS ORDERED: *HR* LORazepam 2 MG/ML VIAL IVP ONE (20:22)
[2021-12-27 20:53] LABS: Bilirubin,Urine Negative (Negative); Blood,Urine Trace (Negative); Clarity,Urine Clear (Clear); Color,Urine Colorless (Yellow); Glucose,Urine (UA) >=1000 mg/dL (Normal); Granular Casts,Urine Few per lpf (None Seen); Hyaline Casts,Urine Few per lpf (None Seen); Ketones,Urine 60 mg/dL (Negative); Leukocyte Esterase,Urine Negative (Negative); Mucus,Urine Few per lpf (None-Few); Nitrite,Urine Negative (Negative); Protein,Urine Trace mg/dL (Neg-Trace); RBC,Urine 0-3 per hpf (0-3); Specific Gravity,Urine 1.021 (1.010-1.025); Squamous Epithelial Cell,Urine Few per hpf (None-Few); Urobilinogen,Urine Normal (Normal); WBC,Urine 0-3 per hpf (0-3)
[2021-12-27 22:48] LABS: Acetaminophen < 10 mcg/mL (10-20); BUN/Creatinine Ratio 20 (6-26); Blood Urea Nitrogen 32 mg/dL (6-20); Calcium 8.5 mg/dL (8.6-10.3); Carbon Dioxide < 4 mEq/L (23-29); Chloride 107 mEq/L (98-107); Glucose 602 mg/dL (70-105); Osmolality,Calculated 331 (280-300); Potassium 6.1 mEq/L (3.5-5.1); Salicylate < 2.5 mg/dL (15.0-30.0); Sodium 143 mEq/L (136-145)
[2021-12-27] MEDS ORDERED: D5% in 0.45% NACL 1,000 ML IVC PRN (23:38)
[2021-12-27] MEDS ORDERED: Insulin Regular, Human 100 UNIT/ML IV PRN ×2 (23:38)
[2021-12-27] MEDS ORDERED: Insulin Regular, Human 100 UNIT/ML IV ONE (23:38)
[2021-12-27] MEDS ORDERED: *HR* Dextrose 50 % in Water (Syg) 50 ML SYRINGE IVP PRN (23:38)
[2021-12-28] MEDS ORDERED: Calcium Gluconate 1gm/50mL 1 GM/50 ML BAG IVPB ONE (00:25)
[2021-12-28] MEDS ORDERED: Ondansetron 4 MG/2 ML VIAL IVP PRN (00:30)
[2021-12-28] MEDS ORDERED: Naloxone 0.4 MG/ML INJ IVP PRN (00:30)
[2021-12-28] MEDS ORDERED: Acetaminophen 325 MG TABLET PO PRN (00:30)
[2021-12-28 00:53] LABS: VBG HCO3 9 mEq/L (21-27); VBG PCO2 27 mmHg (41-51); VBG PH 7.12 pH Units (7.32-7.42); VBG PO2 118 mmHg (25-50)
[2021-12-28 00:57] LABS: Calcium 8.1 mg/dL (8.6-10.3); Phosphorous 2.5 mg/dL (2.7-4.5); Potassium 5.3 mEq/L (3.5-5.1)
[2021-12-28] MEDS ORDERED: Vancomycin 1,250 MG/262.5 ML IV.SOLN IVPB SCH (01:00)
[2021-12-28 01:35] LABS: Amphetamine Screen,Urine Negative ng/mL (Cutoff=1000); Barbiturate Screen,Urine Negative ng/mL (Cutoff=200); Benzodiazepines Screen,Urine Negative ng/mL (Cutoff=200); Cannabinoid Screen,Urine Negative ng/mL (Cutoff = 50); Cocaine Screen,Urine Negative ng/mL (Cutoff= 300); Opiate Screen,Urine Negative ng/mL (Cutoff=300); Phencyclidine Screen,Urine Negative ng/mL (Cutoff=25)
[2021-12-28 03:34] LABS: VBG HCO3 14 mEq/L (21-27); VBG PCO2 36 mmHg (41-51); VBG PH 7.21 pH Units (7.32-7.42); VBG PO2 73 mmHg (25-50)
[2021-12-28 04:00] LABS: Calcium 7.9 mg/dL (8.6-10.3); Magnesium 2.5 mg/dL (1.6-2.6); Potassium 4.6 mEq/L (3.5-5.1)
[2021-12-28] MEDS: D5% in 0.45% NACL w KCl 20 MEQ/1,000 ML MLS IVC PRN ×2 (04:38→09:50)
[2021-12-28] MEDS: *HR* Heparin 5,000 UNIT/ML VIAL SQ SCH ×3 (06:12→21:44)
[2021-12-28 07:19] LABS: Calcium 7.4 mg/dL (8.6-10.3); Potassium 4.4 mEq/L (3.5-5.1)
[2021-12-28 07:21] LABS: VBG HCO3 18 mEq/L (21-27); VBG PCO2 38 mmHg (41-51); VBG PH 7.28 pH Units (7.32-7.42); VBG PO2 67 mmHg (25-50)
[2021-12-28 07:21] LABS: Hematocrit 32.6 % (35.3-44.9); Mean Corpuscular HGB Conc 32.2 g/dL (31.6-35.5); Mean Corpuscular Hemoglobin 30.3 pg (28.0-33.3); Mean Platelet Volume 9.3 fL (9.4-12.4); Platelet Count 273 K/mcL (140-400); Red Blood Count 3.46 M/mcL (3.82-4.97); Red Cell Distribution Width 13.7 % (11.5-14.5); White Blood Count 18.5 K/mcL (4.3-11.1)
[2021-12-28 07:42] LABS: Hemoglobin 10.5 g/dL (11.5-15.4); Mean Corpuscular Volume 94.2 fL (83.0-100.0)
[2021-12-28] MEDS: Calcium Gluconate 1gm/50mL 1 GM/50 ML BAG IVPB SCH ×2 (07:50→08:36)
[2021-12-28] MEDS ORDERED: Cefepime HCl 2,000 MG in 0.9 % Sodium Chloride 10 ML IVP SCH (08:00)
[2021-12-28 14:06] LABS: Estimated Average Glucose 226 mg/dl; Hemoglobin A1C 9.5 %
[2021-12-28 14:21] LABS: VBG Ionized Calcium 1.16 mmol/L (1.15-1.35)
[2021-12-28 14:22] LABS: BUN/Creatinine Ratio 22 (6-26); Blood Urea Nitrogen 16 mg/dL (6-20); Calcium 7.6 mg/dL (8.6-10.3); Carbon Dioxide 17 mEq/L (23-29); Chloride 117 mEq/L (98-107); Glucose 151 mg/dL (70-105); Magnesium 1.8 mg/dL (1.6-2.6); Osmolality,Calculated 292 (280-300); Phosphorous 1.7 mg/dL (2.7-4.5); Potassium 4.3 mEq/L (3.5-5.1); Sodium 139 mEq/L (136-145)
[2021-12-28] MEDS ORDERED: D5% in Water 1,000 ML IVC PRN (14:26)
[2021-12-28] MEDS ORDERED: *HR* Dextrose 50 % in Water (Syg) 50 ML SYRINGE IVP PRN (14:26)
[2021-12-28] MEDS ORDERED: Dextrose Gel 15 GM/37.5 ML TUBE PO PRN ×2 (14:26)
[2021-12-28] MEDS: Insulin DETEMIR 100 UNIT/ML X5UNITS SUBQ SCH ×2 (15:02→21:37)
[2021-12-28] MEDS: Ringers Solution, Lactated 1,000 ML IVC SCH (15:24)
[2021-12-28] MEDS: ARIPiprazole 10 MG TABLET PO SCH (15:46)
[2021-12-28] MEDS: Insulin LISPRO 300 UNITS/3 ML VIAL SUBQ SCH (16:03)
[2021-12-28] MEDS: Budesonide/Formoterol 80/4.5 1 PUFF INH IH SCH (19:57)
[2021-12-28] MEDS ORDERED: Insulin LISPRO 300 UNITS/3 ML VIAL SUBQ SCH (21:00)
[2021-12-28] MEDS: Pregabalin 50 MG CAPSULE PO SCH (21:36)
[2021-12-29] MEDS: Ringers Solution, Lactated 1,000 ML IVC SCH (01:04)
[2021-12-29 01:21] LABS: Basophils % 0.4 %; Eosinophils % 0.3 %; Hematocrit 31.8 % (35.3-44.9); Hemoglobin 10.6 g/dL (11.5-15.4); Immature Granulocytes % 0.4 % (0-4); Lymphocytes # 2.1 K/mcL (0.6-4.6); Lymphocytes % 19.5 %; Mean Corpuscular HGB Conc 33.3 g/dL (31.6-35.5); Mean Corpuscular Hemoglobin 30.4 pg (28.0-33.3); Mean Corpuscular Volume 91.1 fL (83.0-100.0); Mean Platelet Volume 9.2 fL (9.4-12.4); Monocytes # 0.5 K/mcL (0.0-1.3); Monocytes % 5.1 %; Neutrophils # 7.9 K/mcL (1.6-8.9); Platelet Count 228 K/mcL (140-400); Red Blood Count 3.49 M/mcL (3.82-4.97); Red Cell Distribution Width 13.8 % (11.5-14.5); Segmented Neutrophils % 74.3 %; White Blood Count 10.6 K/mcL (4.3-11.1)
[2021-12-29 01:22] LABS: VBG Ionized Calcium 1.17 mmol/L (1.15-1.35)
[2021-12-29 01:39] LABS: BUN/Creatinine Ratio 14 (6-26); Blood Urea Nitrogen 11 mg/dL (6-20); Calcium 7.8 mg/dL (8.6-10.3); Carbon Dioxide 19 mEq/L (23-29); Chloride 113 mEq/L (98-107); Glucose 220 mg/dL (70-105); Magnesium 1.6 mg/dL (1.6-2.6); Osmolality,Calculated 292 (280-300); Phosphorous 1.6 mg/dL (2.7-4.5); Potassium 3.9 mEq/L (3.5-5.1); Sodium 138 mEq/L (136-145)
[2021-12-29] MEDS: *HR* Heparin 5,000 UNIT/ML VIAL SQ SCH (06:33)
[2021-12-29] MEDS: Budesonide/Formoterol 80/4.5 1 PUFF INH IH SCH (07:39)
[2021-12-29 08:05] VITALS: BP 93/65; PULSE 81; TEMP 98.6; O2SAT 98
[2021-12-29] MEDS: Insulin LISPRO 300 UNITS/3 ML VIAL SUBQ SCH ×2 (08:37→12:03)
[2021-12-29] MEDS: Pregabalin 50 MG CAPSULE PO SCH (08:58)
[2021-12-29] MEDS: ARIPiprazole 10 MG TABLET PO SCH (08:58)
[2021-12-29] MEDS ORDERED: BuPROPion XL (24 HR) 150 MG TABLET PO SCH (09:00)
[2021-12-29] MEDS: Insulin DETEMIR 100 UNIT/ML X5UNITS SUBQ SCH (09:06)
== END 2021-12-29 13:40 | disposition home or self-care (01) | DRG 420 ==
LOC: EMEROOARM 15:39 → ICNU 15:39 → 3ANU 12-28 19:28
PROVIDERS: ADMIT Internal Medicine; ATTEND Internal Medicine